=== PATIENT | male | born 1970 ===

== ENCOUNTER 2016-11-27 22:16 | Inpatient (IN) ==
[2016-11-27] MEDS: fentaNYL INJ 1,250 MCG in SODIUM CHLORIDE 0.9% 225 ML IV SCH (23:05)
[2016-11-27 23:11] LABS: ABG Base Excess 10.4 MMOL/L (-2.5-2.5); ABG HCO3 34.2 MMOL/L (20-26); ABG PCO2 62.4 MM HG (35-48); ABG PH 7.397 (7.35-7.45); ABG TCO2 32.9 MMOL/L (23-27)
[2016-11-27 23:11] LABS: Basophils % 0.3 % (0.0-0.8); Eosinophils # 0.1 10*3/uL (0.0-0.87); Eosinophils % 1.8 % (0.00-10.9); Hematocrit 48.5 VOL% (42.0-52.0); Immature Granulocytes % 0.3 %; Immature Granulocytes Absolute 0.02 #; Lymphocytes # 1.2 10*3/uL (1.4-4.0); Lymphocytes % 17.7 % (21.2-54.2); Mean Corpuscular HGB Conc 29.1 GM/DL (32-36); Mean Corpuscular Hemoglobin 27 PG (27-34); Mean Corpuscular Volume 92.9 FL (87-102); Mean Platelet Volume 10.5 FL (9.6-12.0); Monocytes # 0.5 10*3/uL (0.11-0.8); Monocytes % 6.8 % (1.7-12.7); NRBC # 0.03 10*3/uL; Neutrophils # 4.8 10*3/uL (1.4-7.4); Neutrophils % 73.1 % (38.7-73.9); Platelet Count 142 T/CUMM (130-400); Red Blood Count 5.22 MC/CUMM (3.8-5.5); Red Cell Distribution Width 16.8 % (9.3-17.3); White Blood Count 6.6 T/CUMM (4-12)
[2016-11-27] MEDS: MIDAZOLAM 100 MG in SODIUM CHLORIDE 0.9% 80 ML IV SCH (23:13)
[2016-11-27 23:22] LABS: Hemoglobin 14.3 GM/DL (14.0-18.0)
[2016-11-27 23:33] LABS: Alanine Aminotransferase 15 U/L (16-61); Albumin 2.8 G/DL (3.4-5.0); Alkaline Phosphatase 92 U/L (45-117); Aspartate Amino Transferase 24 U/L (0-37); Blood Urea Nitrogen 21 MG/DL (7-18); Calcium 8.1 MG/DL (8.5-10.1); Glucose 89 MG/DL (74-106); Potassium 4.7 MMOL/L (3.5-5.1); Sodium 136 MMOL/L (136-145); Total Protein 8.2 G/DL (6.4-8.3); Troponin I Only < 0.015 NG/ML (0.00-0.045)
--- NOTE | 2016-11-28 00:48 | Hospitalist History & Physical ---
Assessment and Plan (1) Hypercapnia Status: Acute Current Visit: No (2) Acute respiratory failure with hypercapnia Status: Resolved Current Visit: No (3) Respiratory failure requiring intubation Status: Resolved Current Visit: No (4) Morbid obesity Status: Chronic Current Visit: No (5) History of lobectomy of lung Status: Chronic Current Visit: No (6) Obesity hypoventilation syndrome Status: Chronic Current Visit: No (7) ORIANA (obstructive sleep apnea) Status: Acute Assessment and plan: Plan for this patient will be admitting him to our service. He will be kept on the ventilator in ICU. The vent settings seem to agree with this patient his pH is normalizing now and his PCO2 is going down. I can trim back on some O2 at this point. We will recheck an ABG in a few hours and consult pulmonary for their input on vent changes. We will start him on IV antibiotics in case there is a infectious etiology component. Will reevaluate patient in the morning and adjust plans as appropriate. Current Visit: No History of Present Illness Chief complaint: Respiratory failure History of present illness: Mr. Baldwin is a 46 year old male with past medical history significant for chronic respiratory failure with hypercapnia, morbid obesity, obesity hypoventilation syndrome and history of lung cancer for which he is followed by Dr. Covarrubias. Patient was in his normal state of health till today. Apparently patient was complaining about abdominal pain and went to [place]. They told him that he had a large gallbladder and needed to follow-up with the [facility]. Patient went home and was lying down. His reports that he woke up called out her name and was breathing funny. They called EMS and he was taken up to [facility]. Apparently when patient showed up at [facility] he had a O2 sat of 60%. He had a CO2 of 195 and he was intubated with a air and was subsequently transferred to our hospital for further evaluation. Per review of old records he had a similar presentation in 2016. There is some history of him using a CPAP machine that was not working properly according to his family. Home Medications Medication Instructions Recorded Confirmed Type Albuterol Inhaler [Proventil 2 puff INH Q4H PRN #1 inhaler 07/18/15 Rx Inhaler] Albuterol/Ipratropium Neb [Duoneb] 3 ml RESP TX TID #90 nebulization 07/18/15 Rx solution Budesonide Neb [Pulmicort Respules] 0.5 mg RESP TX RT DAILY #30 07/18/15 Rx nebulizer solution predniSONE TAB [PredniSONE] 20 mg PO DAILY #10 tablet 07/18/15 Rx Acetamin/Codeine 120-12 mg/5Ml 12.5 ml PO Q6H PRN #120 ml 06/26/16 Rx [Tylenol/Codeine Liquid] Azithromycin [Zithromax] 500 mg PO DAILY #5 tablet 06/26/16 Rx Allergies Allergy/AdvReac Type Severity Reaction Status Date / Time No Known Allergies Allergy Verified 11/27/16 22:35 Medical,Surgical,& Family Hx - Medical History Cardio: No history of: Hypertension Respiratory: History of: Obstructive Sleep Apnea (diagnostic AHI of 8.2 but with severe hypoxia controlled with 19cm CPAP), Lung Cancer (LLL removed), Respiratory Problems (?Resp Failure October 2014?) - Surgical History Thoracic Surgeries: Surgical HX of;: Lobectomy (LLL) - Family History Family History: Reports;: Family Diabetes - Social History Smoking Status: Unknown if ever smoked Frequency of Alcohol Use: Unknown Type of Drug Use: Unknown ROS unobtainable: due to endotracheal tube Exam - Constitutional Vitals: Period Temp Pulse Resp BP Sys/Pastor Pulse Ox Last 24 Hr 96.7 F-96.7 F 60-62 22-22 101-105/54-62 99-100 General appearance: morbidly obese - Head Head exam: Present: normal inspection - ENT ENT exam: Present: other (ET tube in place) - Neck Neck exam: Present: normal inspection - Respiratory Respiratory exam: Present: other (Coarse breath sounds bilaterally) - Cardiovascular Cardiovascular exam: Present: regular rate and rhythm - GI/Abdominal GI/Abdominal exam: Present: hypoactive bowel sounds - Extremities Exam Extremities exam: Present: normal inspection - Back Exam Back exam: Present: normal inspection Results - Labs CBC & BMP: 11/27/16 22:48 11/27/16 22:48
[2016-11-28] MEDS ORDERED: ONDANSETRON 4 MG/2 ML VIAL IV PRN (00:56)
[2016-11-28] MEDS ORDERED: ACETAMINOPHEN 325 MG TABLET PO PRN (00:56)
[2016-11-28] MEDS ORDERED: ALBUTEROL 2.5 MG/3 ML NEB RESP TX PRN (00:56)
--- NOTE | 2016-11-28 01:01 | Emergency Department Note ---
I, Sandie Lawrence, am scribing for, and in the presence of, Anjel Cheng MD 22: 29. IProsper Kevin Lee, MD, personally performed the services described in this documentation, ascribed by Sandie Lawrence in my presence, and it is both accurate and complete . 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 Pt originally came to [facility] at 60 O2 sat on room air but brought up to 94, with CO2 was 195 then intubated. Pt is missing left lower lobe due to CA, in which pt was under supervision of Dr. Covarrubias. PMHx of COPD, DM. Pt is on fentanyl and versat. Onset (ago): hour(s) Consistency: constant Severity: severe Severity scale (1-10): 10 Quality: fullness Allergies/Adverse Reactions: Allergies Allergy/AdvReac Type Severity Reaction Status Date / Time No Known Allergies Allergy Verified 11/27/16 22:35 Home Medications: Home Medications Medication Instructions Recorded Confirmed Type Albuterol Inhaler [Proventil 2 puff INH Q4H PRN #1 inhaler 07/18/15 11/28/16 Rx Inhaler] Albuterol/Ipratropium Neb [Duoneb] 3 ml RESP TX TID #90 nebulization 07/18/15 Rx solution Ciprofloxacin HCl [Ciprofloxacin 1 tablet PO BID 11/28/16 11/28/16 History Tab] Methyl Salicylate/Menth/Camph 1 applic TRANSDERM DIRECTED 11/28/16 11/28/16 History [Bengay Ultra Strength Cream] metroNIDAZOLE TAB [Flagyl Cap/Tab] 1 tablet PO BID 11/28/16 11/28/16 History Review of System - Review of System ROS unobtainable: due to mental status (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 Absent: normal lung sounds bilaterally (coarse bilaterally) - Cardiovascular Cardiovascular exam: Present: regular rate, normal rhythm, normal heart sounds - Extremities Exam Extremities exam: Present: pedal edema (chronic edema) - Neurological Exam Neurological exam: Absent: alert, oriented X3, CN II-XII intact (GSC of 3T) - Skin Skin exam: Present: warm, dry Results - Labs CBC & BMP: 11/27/16 22:48 11/27/16 22:48 Lab Results: I have reviewed the patients labs Labs: Laboratory Tests 11/27/16 11/27/16 22:48 23:05 WBC 6.6 RBC 5.22 Hgb 14.3 Hct 48.5 MCHC 29.1 L Plt Count 142 Lymph % (Auto) 17.7 L Lymph # (Auto) 1.2 L ABG pH 7.397 ABG pCO2 62.4 H ABG pO2 441.0 H ABG HCO3 34.2 H ABG Total CO2 32.9 H ABG O2 Saturation 100.0 ABG Base Excess 10.4 H Laboratory Tests 11/27/16 22:48 Sodium 136 Potassium 4.7 Chloride 96 L Carbon Dioxide 39 H BUN 21 H GFR Calculation 122 Glucose 89 Calcium 8.1 L Total Bilirubin 1.60 H AST 24 ALT 15 L Troponin I < 0.015 Albumin 2.8 L Globulin 5.4 H Albumin/Globulin Ratio 0.5 L Laboratory Tests 11/27/16 22:48 B-Natriuretic Peptide 121 H - Diagnostic Findings Procedure: Chest x-ray: image reviewed by me (tube in good position) Disposition Clinical Impression: Respiratory failure, Obesity Case discussed with: patient's family Disposition: Still a Patient Condition: Critical
[2016-11-28] MEDS: SODIUM CHLORIDE 0.9% 1,000 ML IV SCH ×3 (02:08→19:04)
[2016-11-28] MEDS: cefTRIAXone 1,000 MG in SODIUM CHLORIDE 0.9% 100 ML IV SCH (02:10)
[2016-11-28] MEDS: ALBUTEROL/IPRATROPIUM 3 ML NEB RESP TX SCH ×4 (02:13→20:10)
[2016-11-28] MEDS: methylPREDNISolone SOD SUC 40 MG/1 ML VIAL IV SCH ×2 (02:33→13:04)
[2016-11-28] MEDS: ENOXAPARIN 40 MG/0.4 ML SYRINGE SUBCUT SCH (02:33)
--- NOTE | 2016-11-28 07:38 | XRay Report ---
XR chest 1V portable Indication: Intubated Comparison: Chest x-ray dated June 26, 2016 Technique: Single frontal view of the chest. Findings: Endotracheal tube tip proximally 2 cm above the sydnie. Continued cardiomegaly. There is a nonspecific reticular pattern throughout the bilateral lungs suspicious for interstitial pulmonary edema, interstitial pneumonia, or other interstitial lung disease. There is significant opacification of the left mid and lower hemithorax which may be secondary to elevation of the left hemidiaphragm, atelectasis/consolidation, and/or pleural fluid. Visualized osseous and surrounding soft tissue structures appear grossly unchanged. IMPRESSION: As above. PROCEDURE INTERPRETED AT [facility] DEPARTMENT OF RADIOLOGY Final Report Signed by: Dr Clark Posada
[2016-11-28 07:40] LABS: Basophils % 0.1 % (0.0-0.8); Eosinophils % 0.6 % (0.00-10.9); Hematocrit 48.2 VOL% (42.0-52.0); Immature Granulocytes % 0.3 %; Immature Granulocytes Absolute 0.02 #; Lymphocytes # 0.9 10*3/uL (1.4-4.0); Lymphocytes % 12.4 % (21.2-54.2); Mean Corpuscular HGB Conc 29.7 GM/DL (32-36); Mean Corpuscular Hemoglobin 27 PG (27-34); Mean Corpuscular Volume 91.5 FL (87-102); Mean Platelet Volume 10.3 FL (9.6-12.0); Monocytes # 0.3 10*3/uL (0.11-0.8); Monocytes % 4.1 % (1.7-12.7); Neutrophils # 5.7 10*3/uL (1.4-7.4); Neutrophils % 82.5 % (38.7-73.9); Platelet Count 146 T/CUMM (130-400); Red Blood Count 5.27 MC/CUMM (3.8-5.5); Red Cell Distribution Width 16.9 % (9.3-17.3); White Blood Count 6.9 T/CUMM (4-12)
[2016-11-28 07:41] LABS: Allen Test Positive; Pt O2 Delivery Device Ventilator
[2016-11-28 07:42] LABS: ABG Base Excess 9.3 MMOL/L (-2.5-2.5); ABG HCO3 37.1 MMOL/L (20-26); ABG Oxygen Saturation 96.5 % (95-100); ABG PCO2 63.5 MM HG (35-48); ABG PH 7.384 (7.35-7.45); ABG PO2 89.2 MM HG (80-95)
[2016-11-28 07:45] LABS: Hemoglobin 14.3 GM/DL (14.0-18.0)
[2016-11-28 07:47] LABS: Albumin 2.8 G/DL (3.4-5.0); Bilirubin,Total 1.7 MG/DL (0.2-1.0); Calcium 8.1 MG/DL (8.5-10.1); Osmolality,Calculated 275.8 MOS/KG (273-304); Potassium 5.1 MMOL/L (3.5-5.1); Total Protein 7.6 G/DL (6.4-8.3)
--- NOTE | 2016-11-28 08:00 | Ultrasound Report ---
US gallbladder Indication: Generalized abdominal pain. Comparison: None. Technique: Multiple longitudinal and transverse real-time sonographic images of the right upper quadrant of the abdomen are obtained. Findings: The liver measures 19 cm and demonstrates no focal abnormality on submitted images. There is gallbladder wall thickening measuring up to 5.7 mm. No significant gallbladder distention or evidence of cholelithiasis.The common duct measures 0.5 cm in diameter and there is no evidence of significant intrahepatic ductal dilation. Right kidney measures 11.5 cm. Pancreas obscured by bowel gas. IMPRESSION: There is gallbladder wall thickening measuring up to 5.7 mm. No significant gallbladder distention or evidence of cholelithiasis. Gallbladder wall thickening is a nonspecific finding and can be seen with etiology ranging from volume overload state to cholecystitis. Consider nuclear medicine hepatobiliary imaging study for further evaluation. Hepatomegaly. PROCEDURE INTERPRETED AT [facility] DEPARTMENT OF RADIOLOGY Final Report Signed by: Dr Clark Posada
[2016-11-28] MEDS: MIDAZOLAM 100 MG in SODIUM CHLORIDE 0.9% 80 ML IV SCH ×2 (09:01→21:24)
[2016-11-28] MEDS: PANTOPRAZOLE 40 MG VIAL IV SCH (09:13)
[2016-11-28] MEDS: fentaNYL INJ 1,250 MCG in SODIUM CHLORIDE 0.9% 225 ML IV SCH ×2 (09:16→20:30)
--- NOTE | 2016-11-28 11:10 | Anesthesia Procedures ---
Anesthesia Procedures - Intubation Time out performed intubation: Yes Sedative: none Assist Device Used: Bougie ET Tube Size: 8 ET Tube Uncuffed: No Tube Secured Depth (cm): 22 Tube Secured Location: teeth Tube Placement Confirmation: equal breath sounds bilaterally, no breath sounds over epigastrium, confirmation by capnometry Patient tolerated procedure intubation: well Intubation Complications: none Additional Commets: tube changeed from 7.[address] Camilo request
--- NOTE | 2016-11-28 12:06 | Pulmonology Consult Note ---
History of Present Illness Chief complaint: Vent management. Acute respiratory failure. Obesity hypoventilation syndr History of present illness: Nick Hernandez, [facility], acting as scribe for Dr. Ryan Camilo Mr. Baldwin is a 46-year-old male who was in his usual state of health until last night when he had acute onset of abdominal pain. He went to [facility]. On evaluation there, they told him he had a large gallbladder and he need to follow-up with the [facility]. He went home to lay down. His reportedly said that he woke up, called out her name , and began breathing "funny". She called an ambulance and he was taken to [facility]. Upon arrival he was noted to have an oxygen saturation of 60% with a PCO2 of 195. He was intubated and subsequently transferred to [facility] for further evaluation and care. It is noted that on review of old records he had a similar presentation in 2016. Nonetheless, he was subsequently admitted to the hospitalist service. We have been asked see the patient in pulmonary consultation for evaluation and treatment. The request for consultation was made by Dr. Hinton. The patient was seen in cardiac care unit. No family was available. He is sedated and on mechanical ventilation. Therefore, his review of systems and history is taken from his nurse, old records, and electronic medical record. There was no reported increased shortness of breath or dyspnea on exertion. No cardiac angina or palpitations. No reported dysphasia or reflux. He had acute onset of abdominal pain as noted above. No bleeding from any site. No TIA symptoms or syncope. No change in bowel or bladder habits. All other systems are reviewed and were negative. Allergies: None Home medications: See list. Hospital medications: See list. 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 Camilo. He was placed on chemotherapy that included bleomycin as well as tulalip, Cytoxan, and Adriamycin. This is been followed by Dr. Covarrubias. At the time of diagnosis this tumor was reportedly huge and was described as being approximately the size of a soccer ball when it was resected by Dr. Real Lozano. It has never recurred. However, it has caused his left hemidiaphragm to be permanently elevated. At that time, Dr. Camilo had noted that the patient should not be placed on more than 30% FiO2 secondary to CO2 retention. Past history is also notable for obstructive sleep apnea, asthma, past history of hypertension, and chronic sinus infections. Surgical history: Left thoracotomy [place] [address] Real Lozano. Family history: positive for diabetes in his mother and lung cancer in his father Social history: The patient has an 8th grade education. He is disabled. He is . He has no children. He uses smokeless tobacco. I do not believe he drinks alcohol. Chest x-ray. Done 11/28/2016. My interpretation. Progressive cardiomegaly with progressive CHF/bilateral pneumonia with larger pleural effusions. Chronic elevation of left hemidiaphragm with prior left thoracotomy. Gallbladder ultrasound done 11/28/2016 showed gallbladder wall thickening measuring up to 5.7 mm. No significant gallbladder distention or evidence of cholelithiasis. Gallbladder wall thickening was a nonspecific finding that could be seen with etiology ranging from volume overload state cholecystitis. There is also hepatomegaly. Laboratory: White count is 6900 with 82.5% segs, 12.4% lymphs, 4.1% monos; H&H 14.3/48.2 with low to low normal indices and top normal red blood cell distribution with; platelet count 146,000; creatinine 0.90, BUN 20, sodium 137, potassium 5.1; calcium is low at 8.1 reflected in the low albumin of 2.6, total protein 76; BNP 121; troponin less than 0.015; total bilirubin 1.70; liver function tests within normal limits. ABGs today on mechanical ventilation with an FiO2 of 70% showed a pH of 7.384, PCO2 63.5, PO2 89.2, bicarb 37.1, and oxygen saturation 96.5%. Home Medications Medication Instructions Recorded Confirmed Type Albuterol Inhaler [Proventil 2 puff INH Q4H PRN #1 inhaler 07/18/15 11/28/16 Rx Inhaler] Albuterol/Ipratropium Neb [Duoneb] 3 ml RESP TX TID #90 nebulization 07/18/15 Rx solution Ciprofloxacin HCl [Ciprofloxacin 1 tablet PO BID 11/28/16 11/28/16 History Tab] Methyl Salicylate/Menth/Camph 1 applic TRANSDERM DIRECTED 11/28/16 11/28/16 History [Bengay Ultra Strength Cream] metroNIDAZOLE TAB [Flagyl Cap/Tab] 1 tablet PO BID 11/28/16 11/28/16 History Allergies Allergy/AdvReac Type Severity Reaction Status Date / Time No Known Allergies Allergy Verified 11/27/16 22:35 Exam (Pulmonay) H&P - Constitutional Vitals: Period Temp Pulse Resp BP Sys/Pastor Pulse Ox Last 24 Hr 96.7 F-97.5 F 53-68 22-36 96-116/51-64 89-100 Exam: Psych: Unable to be obtained secondary to sedation and mechanical ventilation HEENT: [Pupils, irises, sclera, conjunctiva, and eyelids are normal. The face is symmetrical without rash or masses. ET tube in place Neck: Symmetrical. Thyroid was not palpated. Lymphatics: No submandibular, cervical, or supraclavicular adenopathy Chest: Symmetrical with loose large airway congestion CV: Regular with a short grade 1/6 systolic ejection murmur at the left sternal border that does not radiate Arterial: Carotids with a good upstroke. There is no bruit. Upper extremity pulses are palpable. Lower extremity pulses are non-palpable, but I see no evidence of ischemia. Venous: Exam of the neck, upper, and lower extremities is normal Abd: Obese, but no appreciable organomegaly, masses, tenderness, or bruit; Bowel sounds are hypoactive 4; The aorta was not palpated /Rectal: Deferred Extremities: No clubbing, cyanosis, significant edema, or obvious DVT Skin: No cancerous or infectious lesions of the exposed, examined skin; the perineal area was not examined M/S: Age appropriate loss of the normal curvature of the cervical, thoracic, and lumbar spine Neurological: Unable to be determined fully secondary to sedation and mechanical ventilation The remainder of the exam was noncontributory. 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 Given the fact that he has had a thoracotomy and chronic CO2 retention, he will be very difficult to wean down with this size tube. We will ask anesthesia to electively change this out to a larger tube. #4: Once anesthesia is able to give us a larger ET tube, we will proceed with fiberoptic bronchoscopy. #5: Daily chest x-ray and ABGs while intubated. #6: Decrease FiO2 to 40% #7: See orders We appreciate this consult and will follow along with you. Medical,Surgical,& Family Hx - Medical History Cardio: No history of: Hypertension Respiratory: History of: Obstructive Sleep Apnea (diagnostic AHI of 8.2 but with severe hypoxia controlled with 19cm CPAP), Lung Cancer (LLL removed), Respiratory Problems (?Resp Failure October 2014?) Reproductive: Reports: Reproductive Problems (Klinefelter's syndrome) Other: History of: Cancer (malignant teratoma 1983), Miscellaneous Medical Problems (obesity) - Surgical History Thoracic Surgeries: Surgical HX of;: Lobectomy (LLL) - Family History Family History: Reports;: Family Diabetes - Social History Smoking Status: Unknown if ever smoked Frequency of Alcohol Use: Unknown Type of Drug Use: Unknown Results - Labs CBC & BMP: 11/28/16 07:11 11/28/16 07:11
--- NOTE | 2016-11-28 12:06 | XRay Report ---
Portable chest Date: 11/28/2016 Clinical history: Endotracheal tube and nasogastric tube placement Comparison: 11/27/2016 Technique: Portable AP sitting chest Findings: Progressive cardiomegaly with more prominent pulmonary vasculature. Progressive diffuse parenchymal findings with larger pleural effusions. The endotracheal tube remains in satisfactory position. Nasogastric tube in the stomach. Impression: Progressive cardiomegaly with progressive CHF/bilateral pneumonia with larger pleural effusions. Persistent relative elevation of the left hemidiaphragm with prior left thoracotomy. Supportive devices in satisfactory position. PROCEDURE INTERPRETED AT [facility] DEPARTMENT OF RADIOLOGY Final Report Signed by: Dr. Charmaine Mancia
--- NOTE | 2016-11-28 15:36 | Event Note ---
In hospital diagnostic and therapeutic fiberoptic. Bilateral bronchoalveolar lavages were sent for Gram stain, bacterial culture, fungal stains and culture, AFB stains and culture. This is a 46-year-old male who had a malignant mediastinal teratoma removed in 1983. Following surgery he has had chronic elevation of his left hemidiaphragm. He has a long history of CO2 retention. He was admitted to the hospital and intubated with respiratory failure for oxygen and carbon dioxide. His chest x-ray shows elevation of left hemidiaphragm. There is atelectasis in the left lung and a minor amount of atelectasis in the right lower lung. The patient is on mechanical ventilation. His cough is ineffective and it appeared that he had retained secretions. For these reasons he was evaluated with fiberoptic bronchoscopy. The endotracheal tube is in good position. The distal trachea was slightly erythematous but was otherwise normal. The sydnie was sharp. The left mainstem bronchus was full of thick tenacious secretions. These extended into and partially the left upper lung and the left lower lung bronchus. All of the left lower lung sub-segments were occluded with thick tenacious secretions. These areas were irrigated and lavaged until clear. The underlying bronchi were erythematous and edematous. I did not see any endobronchial lesions to suggest a cancer. The collection apparatus showed a tremendous number of small yellow bronchial plugs and bronchial casts. The right mainstem bronchus was full of thick tenacious secretions. These extended into the right upper right middle lung but did not occlude these lobes. The right lower lung segments were partially or completely occluded with thick tenacious secretions. These were removed with level lavaged and bronchoalveolar suction. Again multiple bronchial plugs and casts were seen. The right lower lung there was underlying erosive erythematous bronchitis. I saw nothing to suggest a cancer Patient tolerated procedure well there were no complications. The specimens were sent for the studies named above. Impression. 1. Acute respiratory failure for oxygen and carbon dioxide. Note past history of chronic hypercarbia 2. Intubation mechanical ventilation. 3. Chronically elevated left hemidiaphragm 4. Ineffective cough 5. Retained secretions 6. Bibasilar erosive and edematous partially stenotic bronchitis 7. History of malignant mediastinal teratoma rese[place] [address] Mario Noble.
[2016-11-29] MEDS: INSULIN REGULAR 100 UNIT/ML SUBCUT SCH ×4 (00:27→18:21)
[2016-11-29] MEDS: ALBUTEROL/IPRATROPIUM 3 ML NEB RESP TX SCH ×4 (02:12→19:08)
[2016-11-29] MEDS: SODIUM CHLORIDE 0.9% 1,000 ML IV SCH ×3 (02:35→17:01)
[2016-11-29] MEDS: ENOXAPARIN 40 MG/0.4 ML SYRINGE SUBCUT SCH (02:35)
[2016-11-29] MEDS: methylPREDNISolone SOD SUC 40 MG/1 ML VIAL IV SCH ×2 (02:36→14:13)
[2016-11-29] MEDS: cefTRIAXone 1,000 MG in SODIUM CHLORIDE 0.9% 100 ML IV SCH (02:38)
[2016-11-29 03:08] LABS: ABG Base Excess 7.7 MMOL/L (-2.5-2.5); ABG HCO3 33.9 MMOL/L (20-26); ABG Oxygen Saturation 94.1 % (95-100); ABG PCO2 53.5 MM HG (35-48); ABG PO2 68.9 MM HG (80-95); ABG TCO2 35.6 MMOL/L (23-27); Allen Test Positive; Pt O2 Delivery Device Ventilator
[2016-11-29 06:30] LABS: Calcium 8.3 MG/DL (8.5-10.1); Magnesium 2.5 MG/DL (1.8-2.4); Osmolality,Calculated 282.8 MOS/KG (273-304); Prealbumin 10.9 MG/DL (20-40)
--- NOTE | 2016-11-29 07:21 | Pulmonology Progress Note ---
Pulmonary - PN: Subj Interval history: Patient s/p respiratory failure, hx of left lobectomy. Doing well this morning on minimal vent settings. No issues overnight per nursing. HD stable Exam (Progress Note) - Constitutional Vitals: Period Temp Pulse Resp BP Sys/Pastor Pulse Ox Last 24 Hr 96.9 F-97.6 F 53-74 11-36 105-144/43-69 69-98 General appearance: no acute distress Exam: intubated and sedated - Head Head exam: Present: normal inspection - ENT ENT exam: Present: normal exam, other (ET tube in place) - Respiratory Respiratory exam: Present: clear to auscultation bilaterally - Cardiovascular Cardiovascular exam: Present: regular rate and rhythm - GI/Abdominal GI/Abdominal exam: Present: normal bowel sounds Results - Labs CBC & BMP: 11/28/16 07:11 11/29/16 04:58 Lab Results: I have reviewed the past 24 hour labs - Diagnostic Findings Procedure: Chest x-ray: image reviewed by me (expiratory film) Assessment and Plan (1) Acute respiratory failure with hypercapnia Status: Resolved Assessment and plan: Patient with respiratory failure, stable on minimal vent settings. Underwent bronch yesterday with removal of significant secretions. Clinically doing well now. Will do sedation holiday and SBT this morning and assess for extubation readiness Current Visit: No
[2016-11-29] MEDS: fentaNYL INJ 1,250 MCG in SODIUM CHLORIDE 0.9% 225 ML IV SCH ×2 (08:01→19:56)
[2016-11-29] MEDS: PANTOPRAZOLE 40 MG VIAL IV SCH (09:15)
[2016-11-29] MEDS: MIDAZOLAM 100 MG in SODIUM CHLORIDE 0.9% 80 ML IV SCH (09:21)
--- NOTE | 2016-11-29 09:45 | XRay Report ---
XR chest 1V portable Indication: "Ventilator" Chest one view: Since yesterday, endotracheal tube and NG tube are roughly stable in position. Cardiomegaly and significant hazy obscuration of the central lungs, mid lungs and lung bases persists unchanged. Obesity continues to obscure the lung bases somewhat as well. Impression: No appreciable change. PROCEDURE INTERPRETED AT [facility] DEPARTMENT OF RADIOLOGY Final Report Signed by: Matti Hill M.D.
--- NOTE | 2016-11-29 16:12 | Hospitalist Progress Note ---
Hospitalist: Subjective Interval history: 46-year-old male with respiratory respiratory failure, he is on mechanical ventilation but is comfortable Exam - Constitutional Vitals: Period Temp Pulse Resp BP Sys/Pastor Pulse Ox Last 24 Hr 96.9 F-97.6 F 55-118 11-33 105-175/48-93 89-99 Exam: General: No Acute Distress HEENT: Mild pink eyes bilaterally Neck: Supple, No JVD Chest: Clear to auscultation B/L CV: S1 + S2 audible without murmur, gallop or rub Abd: soft, NT, Non-distended, BS + Ext: No edema Skin: No purpura, bruising or rash Rheumatologic: No Joint deformities Neurologic: Nonfocal Results - Labs CBC & BMP: 11/28/16 07:11 11/29/16 04:58 - Impressions Assessment and Plan (1) Bacterial conjunctivitis Status: Acute Current Visit: No Getting bacitracin ophthalmic (2) Acute hypoxemic and hypercapnic respiratory failure Status: Resolved Current Visit: No He is on mechanical ventilation, pulmonary is following. 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
[2016-11-29] MEDS: BACITRACIN OPH OINT 3.5 GM TUBE BOTH EYES SCH (21:17)
[2016-11-30] MEDS: MIDAZOLAM 100 MG in SODIUM CHLORIDE 0.9% 80 ML IV SCH (00:06)
[2016-11-30] MEDS: ALBUTEROL/IPRATROPIUM 3 ML NEB RESP TX SCH ×4 (01:05→19:35)
[2016-11-30] MEDS: INSULIN REGULAR 100 UNIT/ML SUBCUT SCH ×4 (01:10→17:36)
[2016-11-30] MEDS: methylPREDNISolone SOD SUC 40 MG/1 ML VIAL IV SCH ×2 (01:37→13:01)
[2016-11-30] MEDS: ENOXAPARIN 40 MG/0.4 ML SYRINGE SUBCUT SCH (01:40)
[2016-11-30] MEDS: cefTRIAXone 1,000 MG in SODIUM CHLORIDE 0.9% 100 ML IV SCH (01:40)
[2016-11-30 03:23] LABS: ABG Base Excess 6.5 MMOL/L (-2.5-2.5); ABG HCO3 30.2 MMOL/L (20-26); ABG Oxygen Saturation 94.4 % (95-100); ABG PCO2 51.5 MM HG (35-48); ABG PH 7.412 (7.35-7.45); ABG PO2 69.9 MM HG (80-95); ABG TCO2 28.2 MMOL/L (23-27); Allen Test Positive; Pt O2 Delivery Device Ventilator
[2016-11-30] MEDS: SODIUM CHLORIDE 0.9% 1,000 ML IV SCH ×3 (03:57→18:36)
--- NOTE | 2016-11-30 07:53 | Pulmonology Progress Note ---
Pulmonary - PN: Subj Interval history: Patient without any acute events overnight. No issues per nursing, remais stable on minimal vent settings Exam (Progress Note) - Constitutional Vitals: Period Temp Pulse Resp BP Sys/Pastor Pulse Ox Last 24 Hr 96.9 F-97.8 F 54-118 14-33 119-175/60-93 92-99 General appearance: no acute distress, over weight - Head Head exam: Present: normal inspection - Respiratory Respiratory exam: Present: clear to auscultation bilaterally - Cardiovascular Cardiovascular exam: Present: regular rate and rhythm - GI/Abdominal GI/Abdominal exam: Present: normal bowel sounds Results - Labs CBC & BMP: 11/28/16 07:11 11/29/16 04:58 Lab Results: I have reviewed the past 24 hour labs Assessment and Plan (1) Respiratory failure requiring intubation Status: Resolved Assessment and plan: Attempted SBT this morning. Patient appears awake, nods head that he is ready for extubation, however when placed on spontaneous mode he does not breath. Versed has only been off a short while, will leave off and see if he can do better later this mornig. If able to pass SBT, will extubate today Current Visit: No
[2016-11-30] MEDS: PANTOPRAZOLE 40 MG VIAL IV SCH (08:45)
[2016-11-30] MEDS: BACITRACIN OPH OINT 3.5 GM TUBE BOTH EYES SCH ×3 (08:46→20:01)
[2016-11-30] MEDS: fentaNYL INJ 1,250 MCG in SODIUM CHLORIDE 0.9% 225 ML IV SCH ×2 (08:48→19:57)
--- NOTE | 2016-11-30 09:08 | XRay Report ---
XR chest 1V portable Indication: Intubated. Chest one view: Comparison yesterday shows stable endotracheal tube and NG tube. Patient is more rotated to the right on the current examination but now the right lung base is completely obscured. Continued obscuration of the left lung base noted with persistent cardiomegaly present. Impression: Worsening atelectasis or pneumonia of the right lung base. PROCEDURE INTERPRETED AT [facility] DEPARTMENT OF RADIOLOGY Final Report Signed by: Matti Hill M.D.
[2016-11-30] MEDS: PROPOFOL 1,000 MG/100 ML BOTTLE IV SCH ×2 (14:52→22:54)
--- NOTE | 2016-11-30 15:50 | Hospitalist Progress Note ---
Hospitalist: Subjective Interval history: 46-year-old male with respiratory respiratory failure, he is on mechanical ventilation, getting wean trials. Exam - Constitutional Vitals: Period Temp Pulse Resp BP Sys/Pastor Pulse Ox Last 24 Hr 96.9 F-97.8 F 54-108 14-42 119-165/62-98 88-97 Exam: General: No Acute Distress HEENT: Mild pink eyes bilaterally Neck: Supple, No JVD Chest: Clear to auscultation B/L CV: S1 + S2 audible without murmur, gallop or rub Abd: soft, NT, Non-distended, BS + Ext: No edema Skin: No purpura, bruising or rash Rheumatologic: No Joint deformities Neurologic: Nonfocal Results - Labs CBC & BMP: 11/28/16 07:11 11/29/16 04:58 - Impressions Assessment and Plan: (1) Bacterial conjunctivitis Status: Acute Current Visit: No On bacitracin ophthalmic ointment (2) Acute hypoxemic and hypercapneic respiratory failure Status: Resolved Current Visit: No He is on mechanical ventilation, pulmonary is following. He is status post fiberoptic bronchoscopy with removal of secretions 11/28. 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
[2016-12-01] MEDS: INSULIN REGULAR 100 UNIT/ML SUBCUT SCH ×5 (00:14→23:30)
[2016-12-01] MEDS: ALBUTEROL/IPRATROPIUM 3 ML NEB RESP TX SCH ×4 (00:59→20:13)
[2016-12-01] MEDS: ENOXAPARIN 40 MG/0.4 ML SYRINGE SUBCUT SCH (01:24)
[2016-12-01] MEDS: methylPREDNISolone SOD SUC 40 MG/1 ML VIAL IV SCH ×2 (01:24→14:41)
[2016-12-01] MEDS: cefTRIAXone 1,000 MG in SODIUM CHLORIDE 0.9% 100 ML IV SCH (01:27)
[2016-12-01] MEDS: PROPOFOL 1,000 MG/100 ML BOTTLE IV SCH ×4 (02:48→18:33)
[2016-12-01 03:15] LABS: ABG HCO3 29.8 MMOL/L (20-26); ABG Oxygen Saturation 96.6 % (95-100); ABG PH 7.391 (7.35-7.45); ABG PO2 85.3 MM HG (80-95); ABG TCO2 28.3 MMOL/L (23-27); Allen Test Positive; Pt O2 Delivery Device Ventilator
[2016-12-01] MEDS: SODIUM CHLORIDE 0.9% 1,000 ML IV SCH ×2 (06:34→20:40)
--- NOTE | 2016-12-01 07:53 | XRay Report ---
Single view the chest. Indication: Ventilated patient. Comparison: November 30, 2016. The heart borders are not well-defined. The lung volumes are small. The heart is suspected to be enlarged. An endotracheal tube and nasogastric tube appear to be in satisfactory position. The pulmonary vasculature is prominent. There are bilateral basilar infiltrates and pleural effusions. Impression: No significant interval change is seen. PROCEDURE INTERPRETED AT [facility] DEPARTMENT OF RADIOLOGY Final Report Signed by: Dr. Leslie Latham
[2016-12-01 08:59] LABS: Hematocrit 48.8 VOL% (42.0-52.0); Hemoglobin 14.3 GM/DL (14.0-18.0); Immature Granulocytes % 0.3 %; Immature Granulocytes Absolute 0.02 #; Lymphocytes # 0.6 10*3/uL (1.4-4.0); Lymphocytes % 8.7 % (21.2-54.2); Mean Corpuscular HGB Conc 29.3 GM/DL (32-36); Mean Corpuscular Hemoglobin 27 PG (27-34); Mean Corpuscular Volume 91.4 FL (87-102); Mean Platelet Volume 10.5 FL (9.6-12.0); Monocytes # 0.4 10*3/uL (0.11-0.8); Monocytes % 6.5 % (1.7-12.7); Neutrophils # 5.5 10*3/uL (1.4-7.4); Neutrophils % 84.5 % (38.7-73.9); Platelet Count 123 T/CUMM (130-400); Red Blood Count 5.34 MC/CUMM (3.8-5.5); Red Cell Distribution Width 17.1 % (9.3-17.3); White Blood Count 6.5 T/CUMM (4-12)
[2016-12-01] MEDS: BACITRACIN OPH OINT 3.5 GM TUBE BOTH EYES SCH ×3 (08:59→21:36)
[2016-12-01] MEDS: PANTOPRAZOLE 40 MG VIAL IV SCH (08:59)
[2016-12-01 09:25] LABS: Calcium 8.4 MG/DL (8.5-10.1); Magnesium 2.6 MG/DL (1.8-2.4); Osmolality,Calculated 285.7 MOS/KG (273-304); Potassium 4.8 MMOL/L (3.5-5.1)
--- NOTE | 2016-12-01 10:55 | Pulmonology Progress Note ---
Pulmonary - PN: Subj Interval history: This is a 46-year-old male whom I saw in pulmonary consultation 11/28/2016. Has a long history of respiratory failure for oxygen hypoxemia. He has a nonfunctioning left hemidiaphragm. He was admitted with respiratory failure for oxygen and carbon dioxide and required intubation mechanical ventilation. My impressions were. 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 Patient's on mechanical ventilation. He is on a weaning protocol. On 11/30/2016 he was able to do 4-1/2 hours of CPAP. His chest x-ray shows bilateral infiltrates. Natruretic peptide is increased from 121-213. Electrolytes are normal. Creatinine is 0.90 with the BUN of 32. ABGs on mechanical ventilation FiO2 40% shows a pH of 7.39, PCO2 of 50.0, PO2 of 85.3 and a bicarb of 29.8. This patient will require hypercarbia in order to extubate. He now has a #8 tube. This patient has been started on Diamox 250 mg IV push every 12 hours. Bronchoscopy specimens have no growth. Patient has become afebrile. Physical exam. General. No distress. Can cooperate. Psychiatric. Oriented 3 I think Vital signs. See below Face. Symmetrical. No swelling of the lips or tongue. Neck. No meningismus no masses. Lymphatics. No submandibular cervical supraclavicular or epitrochlear adenopathy. Chest coarse large airway congestion Heart. No definite gallop Abdomen. Scattered bowel sounds Extremities. Mild chronic venous stasis in the lower extremities. Neurologic. Cranial nerves are intact. Patient can move all 4 extremities. It is known that he has a nonfunctioning left hemidiaphragm The remainder of the physical exam is noncontributory. Plan: 11/28/2016 #1: Ventilator weaning protocol #2: Initiate early progressive mobility #3: Patient has a size 7 ET tube. Given the fact that he has had a thoracotomy and chronic CO2 retention, he will be very difficult to wean down with this size tube. We will ask anesthesia to electively change this out to a larger tube. #4: Once anesthesia is able to give us a larger ET tube, we will proceed with fiberoptic bronchoscopy. #5: Daily chest x-ray and ABGs while intubated. #6: Decrease FiO2 to 40% #7: See orders 12/01/2016. 1. See today's note above 2. Continue weaning protocol 3. Chest x-ray has deteriorated, BNP is elevated. Will get echocardiogram. Exam (Progress Note) - Constitutional Vitals: Period Temp Pulse Resp BP Sys/Pastor Pulse Ox Last 24 Hr 96.9 F-97.6 F 57-108 18-42 111-165/61-98 88-97 Results - Labs CBC & BMP: 12/01/16 08:42 12/01/16 08:42
--- NOTE | 2016-12-01 12:39 | Hospitalist Progress Note ---
Hospitalist: Subjective Interval history: 46-year-old male with respiratory failure, he is on mechanical ventilation, getting wean trials. He has history of previous lobectomy and also has history of malignant mediastinal teratoma that required left thoracotomy 1983. He has been started on weaning trial. He is a chronic CO2 retainer. He had a CPAP machine at home but per family it was not functioning properly. Exam - Constitutional Vitals: Period Temp Pulse Resp BP Sys/Pastor Pulse Ox Last 24 Hr 96.9 F-97.6 F 57-108 18-42 111-165/61-98 88-97 Exam: General: No Acute Distress HEENT: Mild pink eyes bilaterally Neck: Supple, No JVD Chest: Clear to auscultation B/L CV: S1 + S2 audible without murmur, gallop or rub Abd: soft, NT, Non-distended, BS + Ext: No edema Skin: No purpura, bruising or rash Rheumatologic: No Joint deformities Neurologic: Nonfocal Results - Labs CBC & BMP: 12/01/16 08:42 12/01/16 08:42 - Impressions 1) Bacterial conjunctivitis Status: Acute Current Visit: No On bacitracin ophthalmic ointment (2) Acute hypoxemic and hypercapneic respiratory failure Status: Resolved Current Visit: No He is on mechanical ventilation, pulmonary is following. He is status post fiberoptic bronchoscopy with removal of secretions 11/28. 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
--- NOTE | 2016-12-01 14:24 | ECHO Report ---
Huey Baldwin Exam Date: 12/01/2016 12:23 Referring Physician: Technologist: Savanah Flynn RDCS Age: 46 Ht (in): 69 Wt (lb): 370 Gender: M Exam [facility]: [facility] Echo Indications: Acute respiratory failure with hypoxia, Acute respiratory failure with hypercapnia, Morbid (severe) obesity with alveolar hypoventilation, Bacterial conjuctivitis, ORIANA, Essential (primary) hypertension, hx Lobectomy of lung BP: 141 / 72 HR: 76 Rhythm: Sinus Technical Quality: Limited and technically difficult IMPRESSIONS Left ventricular ejection fraction is estimated at 60 %. No regional wall motion abnormality. Normal diastolic parameters. Tricuspid regurgitation velocities suggest a RVSP of 47 mmHg. Three chamber cardiac enlargement Technically limited study MEASUREMENTS (Male / Female) Normal Values 2D ECHO LV Diastolic Diameter PLAX 4.8 cm 4.2 - 5.9 / 3.9 - 5.3 cm LV Systolic Diameter PLAX 2.6 cm LV Fractional Shortening PLAX 46.1 % IVS Diastolic Thickness 0.9 cm 0.6 - 1.0 / 0.6 - 0.9 cm LVPW Diastolic Thickness 0.9 cm 0.6 - 1.0 / 0.6 - 0.9 cm RV Internal Dim ED PLAX 3.0 cm Aortic Root Diameter 2.9 cm LA Systolic Diameter LX 4.4 cm 3.0 - 4.0 / 2.7 - 3.8 cm DOPPLER TR Peak Velocity 305.0 cm/s TR Peak Gradient 37.2 mmHg FINDINGS Left Ventricle Normal left ventricular cavity size. Normal left ventricular wall thickness. Left ventricular ejection fraction is estimated at 60 %. No regional wall motion abnormality. Normal diastolic parameters Right Ventricle The right ventricle is enlarged and has normal function. Right Atrium Moderately increased right atrial size. Left Atrium Moderately increased left atrial size. Mitral Valve Morphologically normal mitral valve. Trace mitral valve regurgitation. Aortic Valve Mild aortic valve sclerosis without stenosis or regurgitation. Tricuspid Valve Morphologically normal tricuspid valve. Mild tricuspid valve regurgitation. Tricuspid regurgitation velocities suggest a RVSP of 47 mmHg. Pulmonic Valve Pulmonic valve not well visualized. No pulmonary valve regurgitation. Pericardium Normal pericardium without effusion. Aorta Normal ascending aorta dimension. Sheba Recinos (Electronically Signed) Final Date: 01 December 2016 14:23
[2016-12-01] MEDS: fentaNYL INJ 1,250 MCG in SODIUM CHLORIDE 0.9% 225 ML IV SCH (15:47)
[2016-12-02] MEDS: methylPREDNISolone SOD SUC 40 MG/1 ML VIAL IV SCH ×2 (01:10→14:34)
[2016-12-02] MEDS: cefTRIAXone 1,000 MG in SODIUM CHLORIDE 0.9% 100 ML IV SCH (01:13)
[2016-12-02] MEDS: ENOXAPARIN 40 MG/0.4 ML SYRINGE SUBCUT SCH (01:13)
[2016-12-02] MEDS: ALBUTEROL/IPRATROPIUM 3 ML NEB RESP TX SCH ×4 (01:46→19:40)
[2016-12-02] MEDS: PROPOFOL 1,000 MG/100 ML BOTTLE IV SCH ×4 (01:52→19:17)
[2016-12-02 03:45] LABS: ABG Base Excess 4.4 MMOL/L (-2.5-2.5); ABG HCO3 28.4 MMOL/L (20-26); ABG Oxygen Saturation 97.5 % (95-100); ABG PCO2 55.7 MM HG (35-48); ABG PH 7.363 (7.35-7.45); ABG PO2 96.2 MM HG (80-95); ABG TCO2 27.3 MMOL/L (23-27); Allen Test Positive; Pt O2 Delivery Device Ventilator
[2016-12-02 05:32] LABS: Calcium 8.6 MG/DL (8.5-10.1); Magnesium 2.5 MG/DL (1.8-2.4); Potassium 5.2 MMOL/L (3.5-5.1)
[2016-12-02 05:48] LABS: Calcium 8.7 MG/DL (8.5-10.1); Osmolality,Calculated 277.1 MOS/KG (273-304); Phosphorous 3.6 MG/DL (2.5-4.9); Potassium 5.1 MMOL/L (3.5-5.1); Prealbumin 18.5 MG/DL (20-40)
[2016-12-02] MEDS: fentaNYL INJ 1,250 MCG in SODIUM CHLORIDE 0.9% 225 ML IV SCH (06:17)
[2016-12-02] MEDS: INSULIN REGULAR 100 UNIT/ML SUBCUT SCH ×3 (06:17→19:14)
--- NOTE | 2016-12-02 08:16 | Pulmonology Progress Note ---
Pulmonary - PN: Subj Interval history: This is a 46-year-old male whom I saw in pulmonary consultation 11/28/2016. Has a long history of respiratory failure for oxygen hypoxemia. He has a nonfunctioning left hemidiaphragm. He was admitted with respiratory failure for oxygen and carbon dioxide and required intubation mechanical ventilation. My impressions were. 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 Patient's on mechanical ventilation. He is on a weaning protocol. On 11/30/2016 he was able to do 4-1/2 hours of CPAP. His chest x-ray shows bilateral infiltrates. Natruretic peptide is increased from 121-213. Electrolytes are normal. Creatinine is 0.90 with the BUN of 32. ABGs on mechanical ventilation FiO2 40% shows a pH of 7.39, PCO2 of 50.0, PO2 of 85.3 and a bicarb of 29.8. This patient will require hypercarbia in order to extubate. He now has a #8 tube. This patient has been started on Diamox 250 mg IV push every 12 hours. Bronchoscopy specimens have no growth. Patient has become afebrile. 12/02/2016. Patient's had a fairly stable night. Today's chest x-ray shows less bilateral pulmonary infiltrates. There is chronic elevation of left hemidiaphragm. No mechanical ventilation and FiO2 40% pH is 7.36, PCO2 is 55.7 , PO2 is 96.2 and bicarb is 28.4. Patient was able to do 8 hours on CPAP on . Sodium is 135. Potassium 5.1. Creatinine is stable at 0.8 with a BUN of 39. Echocardiogram. Ejection fraction 60%. Right ventricular systolic pressure is 47 which should equal pulmonary artery pressure. No significant valvular disease. There is right atrial, right ventricular and left atrial enlargement. Physical exam. General. No distress. Can cooperate. Psychiatric. Oriented 3 I think Vital signs. See below Face. Symmetrical. No swelling of the lips or tongue. Neck. No meningismus no masses. Lymphatics. No submandibular cervical supraclavicular or epitrochlear adenopathy. Chest coarse large airway congestion Heart. No definite gallop Abdomen. Scattered bowel sounds Extremities. Mild chronic venous stasis in the lower extremities. Neurologic. Cranial nerves are intact. Patient can move all 4 extremities. It is known that he has a nonfunctioning left hemidiaphragm The remainder of the physical exam is noncontributory. Plan: 11/28/2016 #1: Ventilator weaning protocol #2: Initiate early progressive mobility #3: Patient has a size 7 ET tube. Given the fact that he has had a thoracotomy and chronic CO2 retention, he will be very difficult to wean down with this size tube. We will ask anesthesia to electively change this out to a larger tube. #4: Once anesthesia is able to give us a larger ET tube, we will proceed with fiberoptic bronchoscopy. #5: Daily chest x-ray and ABGs while intubated. #6: Decrease FiO2 to 40% #7: See orders 12/01/2016. 1. See today's note above 2. Continue weaning protocol 3. Chest x-ray has deteriorated, BNP is elevated. Will get echocardiogram. 12/02/2016. 1. See today's note, above 2. Continue protocols. 3. Continue daily chest x-rays ABGs and lab. 4. The patient is making slow steady progress. In order to continue weaning will have to keep a mild elevation of his PCO twos as he is a CO2 retainer Exam (Progress Note) - Constitutional Vitals: Period Temp Pulse Resp BP Sys/Pastor Pulse Ox Last 24 Hr 97.1 F-97.8 F 54-87 18-32 121-173/63-102 91-99 Results - Labs CBC & BMP: 12/01/16 08:42 12/02/16 04:25
--- NOTE | 2016-12-02 08:43 | XRay Report ---
XR chest 1V portable Indication: Ventilator patient Comparison: 01 December 2016 Findings: The heart and mediastinum are stable in size and configuration. The lines and tubes are unchanged in position. The pulmonary vascularity is increased but similar to previous exam. Lower lung density is similar to previous study. No other lung infiltrates, effusions, pneumothorax or other abnormality is demonstrated. Impression: No significant change. PROCEDURE INTERPRETED AT [facility] DEPARTMENT OF RADIOLOGY Final Report Signed by: Dr. Danish Sauceda
[2016-12-02] MEDS: PANTOPRAZOLE 40 MG VIAL IV SCH (09:16)
[2016-12-02] MEDS: BACITRACIN OPH OINT 3.5 GM TUBE BOTH EYES SCH ×3 (09:16→21:27)
--- NOTE | 2016-12-02 10:07 | Hospitalist Progress Note ---
Assessment and Plan - Time spent with patient Time spent with patient: Less than 30 minutes (1) Bacterial conjunctivitis of both eyes Status: Acute Assessment and plan: 46-year-old male with history of obesity hypoventilation syndrome, asthma, hypertension, morbid obesity, history of malignant mediastinal teratoma requiring left thoracotomy with lobectomy, obstructive sleep apnea admitted by the hospitalist service on 11/28/2016 with acute respiratory failure. Patient was transferred from the [facility] already sedated on the vent. Pulmonary is following the patient. Dr. Shepard will see and examined patient and further recommendations to follow. Acute hypoxemic and hypercapnic respiratory failure--patient is undergoing weaning trials by Dr. Camilo from pulmonary. Patient is on diprivan and fentanyl drip due to his agitation. We will add some Haldol p.o. 3 times daily through his NG to help with his agitation and take him off the fentanyl drip. Patient is to undergo CPAP trials by respiratory today and hope extubation soon. Patient did tolerate 8 hours yesterday. Elevated blood sugars--patient does not have diabetes listed as a medical problem and his blood sugars are running between 128-145. We will continue to monitor these. Current Visit: Yes (2) Acute on chronic respiratory failure with hypoxemia Status: Acute Current Visit: Yes (3) History of lobectomy of lung Status: Chronic Current Visit: No (4) Obesity hypoventilation syndrome Status: Chronic Current Visit: No (5) ORIANA (obstructive sleep apnea) Status: Acute Current Visit: No Hospitalist: Subjective Interval history: Patient is sedated and on the vent. Nurse states he will wake up periodically and get agitated and cuss at her. He is on dipper Van and fentanyl drip. He would not open his eyes to verbal or tactile stimuli. Exam - Constitutional Vitals: Period Temp Pulse Resp BP Sys/Pastor Pulse Ox Last 24 Hr 96.7 F-97.8 F 54-87 13-32 121-173/63-102 91-99 Exam: 46-year-old morbidly obese [place] male, sedated on the vent Sclera red and sticky drainage Chest clear CV regular rate and rhythm Abdomen obese, good bowel sounds Extremities with 1+ edema Results - Labs CBC & BMP: 12/01/16 08:42 12/02/16 04:25 Lab Results: I have reviewed the past 24 hour labs - Diagnostic Findings Procedure: Chest x-ray: report reviewed by me (Lung density of bilateral pleural effusions are similar to study yesterday.)
[2016-12-02] MEDS: SODIUM CHLORIDE 0.9% 1,000 ML IV SCH (11:00)
[2016-12-02] MEDS: HALOPERIDOL CONCENTRATE 2 MG/ML 15 ML BOTTLE PO SCH ×2 (14:35→21:28)
[2016-12-02] MEDS: MAGNESIUM HYDROXIDE SUSP 30 ML UDCUP PO PRN (21:27)
[2016-12-03] MEDS: INSULIN REGULAR 100 UNIT/ML SUBCUT SCH ×5 (00:24→23:36)
[2016-12-03] MEDS: SODIUM CHLORIDE 0.9% 1,000 ML IV SCH (00:24)
[2016-12-03] MEDS: ALBUTEROL/IPRATROPIUM 3 ML NEB RESP TX SCH ×4 (01:05→19:53)
[2016-12-03] MEDS: PROPOFOL 1,000 MG/100 ML BOTTLE IV SCH ×4 (01:13→19:00)
[2016-12-03] MEDS: methylPREDNISolone SOD SUC 40 MG/1 ML VIAL IV SCH ×3 (01:26→23:36)
[2016-12-03] MEDS: ENOXAPARIN 40 MG/0.4 ML SYRINGE SUBCUT SCH (01:28)
[2016-12-03] MEDS: cefTRIAXone 1,000 MG in SODIUM CHLORIDE 0.9% 100 ML IV SCH (01:31)
[2016-12-03 03:32] LABS: ABG Base Excess 4.3 MMOL/L (-2.5-2.5); ABG HCO3 28.3 MMOL/L (20-26); ABG Oxygen Saturation 98.3 % (95-100); ABG PCO2 55.7 MM HG (35-48); ABG PH 7.361 (7.35-7.45); ABG TCO2 27.3 MMOL/L (23-27); Allen Test Positive; Pt O2 Delivery Device Ventilator
[2016-12-03 05:06] LABS: Calcium 8.5 MG/DL (8.5-10.1); Magnesium 2.4 MG/DL (1.8-2.4); Osmolality,Calculated 281.8 MOS/KG (273-304); Potassium 5.3 MMOL/L (3.5-5.1)
--- NOTE | 2016-12-03 07:33 | XRay Report ---
History: Patient on ventilator Date: 12/03/2016 Study: Chest x-ray AP portable Comparison exam: 12/02/2016 The endotracheal and nasogastric tubes remain in satisfactory position. There is continued cardiomegaly. There is increased prominence of the pulmonary vasculature, though this is stable if not improved. There is some atelectatic change in the lung bases. There is some hazy perihilar edema bilaterally. There is no increasing pleural effusion of significance. Osseous structures are unchanged. Impression: Continued bilateral pulmonary edema, the same or slightly improved. Continued bibasilar atelectasis PROCEDURE INTERPRETED AT [facility] DEPARTMENT OF RADIOLOGY Final Report Signed by: Dr. Amy Segal
[2016-12-03] MEDS: BACITRACIN OPH OINT 3.5 GM TUBE BOTH EYES SCH ×3 (08:46→20:17)
[2016-12-03] MEDS: PANTOPRAZOLE 40 MG VIAL IV SCH (08:47)
[2016-12-03] MEDS: HALOPERIDOL CONCENTRATE 2 MG/ML 15 ML BOTTLE PO SCH ×3 (08:47→20:16)
--- NOTE | 2016-12-03 10:47 | Hospitalist Progress Note ---
Assessment and Plan (1) Acute on chronic respiratory failure with hypoxemia Status: Acute Assessment and plan: 1)resp failure- he is doing better with weaning trials after the addition of Haldol yesterday. He remains on Diprivan, off fentanyl. 2)morbid obesity 3)ORIANA/OHS- will probably need BIPAP at extubation. 4)elevated gllucose- likely diabetic. check hgba1c. use SSI prn. 5)conjunctival infection- improving with topical antibiotics. Current Visit: Yes (2) Morbid obesity Status: Chronic Current Visit: No (3) History of lobectomy of lung Status: Chronic Current Visit: No (4) Obesity hypoventilation syndrome Status: Chronic Current Visit: No (5) ORIANA (obstructive sleep apnea) Status: Acute Current Visit: No (6) Bacterial conjunctivitis of both eyes Status: Acute Current Visit: Yes Hospitalist: Subjective Interval history: Mr Baldwin is doing well this morning. He did CPAP for 12 hours yesterday. He is alert and nods and shakes his head to questions. He is cooperative and has not been aggressive as was reported yesterday. He is tolerating Haldol. Exam - Constitutional Vitals: Period Temp Pulse Resp BP Sys/Pastor Pulse Ox Last 24 Hr 96.9 F-98.2 F 51-100 11-30 116-153/63-97 92-100 General appearance: no acute distress, morbidly obese - Eye Eye exam: Present: EOMI. Absent: scleral icterus Pupils: Present: JUS - Respiratory Respiratory exam: Present: clear to auscultation bilaterally (distant breath sounds) - Cardiovascular Cardiovascular exam: Present: regular rate and rhythm - GI/Abdominal GI/Abdominal exam: Present: normal bowel sounds, soft. Absent: tenderness - Extremities Exam Extremities exam: Present: edema (1+ edema in hands, LE ) Results - Labs CBC & BMP: 12/01/16 08:42 12/03/16 04:05 Lab Results: I have reviewed the past 24 hour labs
--- NOTE | 2016-12-03 10:53 | Pulmonology Progress Note ---
Pulmonary - PN: Subj Interval history: This is a 46-year-old male whom I saw in pulmonary consultation 11/28/2016. Has a long history of respiratory failure for oxygen hypoxemia. He has a nonfunctioning left hemidiaphragm. He was admitted with respiratory failure for oxygen and carbon dioxide and required intubation mechanical ventilation. My impressions were. 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 Patient's on mechanical ventilation. He is on a weaning protocol. On 11/30/2016 he was able to do 4-1/2 hours of CPAP. His chest x-ray shows bilateral infiltrates. Natruretic peptide is increased from 121-213. Electrolytes are normal. Creatinine is 0.90 with the BUN of 32. ABGs on mechanical ventilation FiO2 40% shows a pH of 7.39, PCO2 of 50.0, PO2 of 85.3 and a bicarb of 29.8. This patient will require hypercarbia in order to extubate. He now has a #8 tube. This patient has been started on Diamox 250 mg IV push every 12 hours. Bronchoscopy specimens have no growth. Patient has become afebrile. 12/02/2016. Patient's had a fairly stable night. Today's chest x-ray shows less bilateral pulmonary infiltrates. There is chronic elevation of left hemidiaphragm. No mechanical ventilation and FiO2 40% pH is 7.36, PCO2 is 55.7 , PO2 is 96.2 and bicarb is 28.4. Patient was able to do 8 hours on CPAP on . Sodium is 135. Potassium 5.1. Creatinine is stable at 0.8 with a BUN of 39. Echocardiogram. Ejection fraction 60%. Right ventricular systolic pressure is 47 which should equal pulmonary artery pressure. No significant valvular disease. There is right atrial, right ventricular and left atrial enlargement. 12/03/2016. This patient has advanced to stage V of the weaning protocol. ABGs on mechanical ventilation FiO2 40% shows a pH 7.36, PCO2 55.7, PO2 105, bicarb 28.3. Electrolytes are in the normal range. Creatinine 0.7. BUN is some 33. Patient is getting NG hyperalimentation and get 75 cc of saline per hour. We will check his CBC to make sure the BUN is not related to bleed. Chest x-ray shows some improvement. There is still marked elevation left hemidiaphragm and residual atelectasis above the diaphragm. The right-sided infiltrates are improved but not resolved and is some residual atelectasis at the bases. This patient's cough is ineffective and he has retained secretions. He will be evaluated with fiberoptic bronchoscopy in the morning. Physical exam. General. No distress. Can cooperate. Psychiatric. Oriented 3 I think Vital signs. See below Face. Symmetrical. No swelling of the lips or tongue. Neck. No meningismus no masses. Lymphatics. No submandibular cervical supraclavicular or epitrochlear adenopathy. Chest coarse large airway congestion Heart. No definite gallop Abdomen. Scattered bowel sounds Extremities. Mild chronic venous stasis in the lower extremities. Neurologic. Cranial nerves are intact. Patient can move all 4 extremities. It is known that he has a nonfunctioning left hemidiaphragm The remainder of the physical exam is noncontributory. Plan: 11/28/2016 #1: Ventilator weaning protocol #2: Initiate early progressive mobility #3: Patient has a size 7 ET tube. Given the fact that he has had a thoracotomy and chronic CO2 retention, he will be very difficult to wean down with this size tube. We will ask anesthesia to electively change this out to a larger tube. #4: Once anesthesia is able to give us a larger ET tube, we will proceed with fiberoptic bronchoscopy. #5: Daily chest x-ray and ABGs while intubated. #6: Decrease FiO2 to 40% #7: See orders 12/01/2016. 1. See today's note above 2. Continue weaning protocol 3. Chest x-ray has deteriorated, BNP is elevated. Will get echocardiogram. 12/02/2016. 1. See today's note, above 2. Continue protocols. 3. Continue daily chest x-rays ABGs and lab. 4. The patient is making slow steady progress. In order to continue weaning will have to keep a mild elevation of his PCO twos as he is a CO2 retainer 12/03/2016 1. See today's note, above. 2. Fiberoptic bronchoscopy in the morning 3. Stage V weaning protocol 4. Check CBC 5. Continue to follow lab ABGs and chest Exam (Progress Note) - Constitutional Vitals: Period Temp Pulse Resp BP Sys/Pastor Pulse Ox Last 24 Hr 96.9 F-98.2 F 51-100 11-30 116-153/63-97 92-100 Results - Labs CBC & BMP: 12/01/16 08:42 12/03/16 04:05
[2016-12-03 12:14] LABS: Basophils % 0.1 % (0.0-0.8); Eosinophils % 0.2 % (0.00-10.9); Hemoglobin 14.5 GM/DL (14.0-18.0); Immature Granulocytes % 0.4 %; Immature Granulocytes Absolute 0.03 #; Lymphocytes # 0.8 10*3/uL (1.4-4.0); Lymphocytes % 10.5 % (21.2-54.2); Mean Corpuscular HGB Conc 29.8 GM/DL (32-36); Mean Corpuscular Hemoglobin 27 PG (27-34); Mean Corpuscular Volume 91.9 FL (87-102); Mean Platelet Volume 10.5 FL (9.6-12.0); Monocytes # 0.8 10*3/uL (0.11-0.8); Neutrophils # 6.3 10*3/uL (1.4-7.4); Neutrophils % 78.8 % (38.7-73.9); Platelet Count 139 T/CUMM (130-400); Red Blood Count 5.29 MC/CUMM (3.8-5.5); Red Cell Distribution Width 16.9 % (9.3-17.3)
[2016-12-03 12:15] LABS: Hematocrit 48.6 VOL% (42.0-52.0)
[2016-12-04] MEDS: ALBUTEROL/IPRATROPIUM 3 ML NEB RESP TX SCH ×4 (00:17→19:20)
[2016-12-04] MEDS: ENOXAPARIN 40 MG/0.4 ML SYRINGE SUBCUT SCH (00:50)
[2016-12-04] MEDS: cefTRIAXone 1,000 MG in SODIUM CHLORIDE 0.9% 100 ML IV SCH (00:50)
[2016-12-04] MEDS: PROPOFOL 1,000 MG/100 ML BOTTLE IV SCH ×5 (00:53→23:16)
[2016-12-04 03:24] LABS: ABG Base Excess 5.6 MMOL/L (-2.5-2.5); ABG HCO3 32.2 MMOL/L (20-26); ABG Oxygen Saturation 98.6 % (95-100); ABG PCO2 54.5 MM HG (35-48); ABG PH 7.389 (7.35-7.45); ABG PO2 118.9 MM HG (80-95); ABG TCO2 33.8 MMOL/L (23-27); Allen Test Positive; Pt O2 Delivery Device Ventilator
[2016-12-04 04:54] LABS: INR 1.1; PT Patient Result 12.1 SECS; Partial Thromboplastin Time 28.2 SECS (0-40)
[2016-12-04 05:06] LABS: Calcium 8.6 MG/DL (8.5-10.1); Osmolality,Calculated 282.7 MOS/KG (273-304)
[2016-12-04 05:09] LABS: Magnesium 2.3 MG/DL (1.8-2.4); Phosphorous 3.7 MG/DL (2.5-4.9); Prealbumin 22.1 MG/DL (20-40)
[2016-12-04 05:13] LABS: Basophils % 0.1 % (0.0-0.8); Eosinophils % 0.3 % (0.00-10.9); Hematocrit 47.3 VOL% (42.0-52.0); Immature Granulocytes % 0.4 %; Immature Granulocytes Absolute 0.03 #; Lymphocytes # 0.7 10*3/uL (1.4-4.0); Lymphocytes % 10.1 % (21.2-54.2); Mean Corpuscular HGB Conc 29.8 GM/DL (32-36); Mean Corpuscular Hemoglobin 27 PG (27-34); Mean Corpuscular Volume 90.8 FL (87-102); Mean Platelet Volume 11.4 FL (9.6-12.0); Monocytes # 0.4 10*3/uL (0.11-0.8); Neutrophils # 5.7 10*3/uL (1.4-7.4); Neutrophils % 83.1 % (38.7-73.9); Platelet Count 122 T/CUMM (130-400); Red Blood Count 5.21 MC/CUMM (3.8-5.5); Red Cell Distribution Width 16.4 % (9.3-17.3); White Blood Count 6.8 T/CUMM (4-12)
[2016-12-04 05:31] LABS: Hemoglobin 14.1 GM/DL (14.0-18.0)
[2016-12-04] MEDS: INSULIN REGULAR 100 UNIT/ML SUBCUT SCH ×3 (05:44→19:31)
--- NOTE | 2016-12-04 07:57 | XRay Report ---
History is ventilator management Comparison 12/03/2016 Mediastinal contours and support devices grossly unchanged. ET tube tip remains at T5 There remains elevation left diaphragm with continued [id number] diffuse bilateral hazy pulmonary infiltrates versus edema and possible small right effusion. No new areas of consolidation are seen. Impression: No significant change described above PROCEDURE INTERPRETED AT [facility] DEPARTMENT OF RADIOLOGY Final Report Signed by: Dr. Cindy Latham
--- NOTE | 2016-12-04 09:07 | Event Note ---
In hospital therapeutic and diagnostic fiberoptic bronchoscopy. Bilateral bronchoalveolar lavages were sent for cytology, Gram stain, bacterial cultures, AFB stains and culture, fungal stains and culture. 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 Past history of a malignant mediastinal teratoma. Bilateral atelectasis. Mechanical ventilation. Retained secretions in an ineffective cough. For these reasons he is evaluated with fiberoptic bronchoscopy. Endotracheal tube is in good position. The sydnie was sharp. The left lung was full of thick tenacious secretions that extended into the left upper lung and the left lower lung. These were removed with bronchoalveolar lavage. There was mild endobronchial erythema and edema. No endobronchial lesions to suggest cancer were seen. The right mainstem bronchus was full of thick tenacious secretions that extended into the right upper lung, the right middle lung and the right lower lung. All 3 lobes were lavaged lavaged until clear. There was some mild erosive friable bronchitis especially in the right lower lung. There was mild edema associated with this. Patient had underlying collapsible airways. The patient tolerated procedure well there were no complications Impression. 1. Mechanical ventilation 2. Retained secretions 3. Ineffective cough 4. Bilateral lateral atelectasis 5. Pneumonia 6. See above Plan. 1. Follow-up x-ray 2. Check bronchoscopy specimens 3. Continue weaning protocol
[2016-12-04] MEDS: BACITRACIN OPH OINT 3.5 GM TUBE BOTH EYES SCH ×3 (09:46→21:09)
[2016-12-04] MEDS: MULTIVITAMIN LIQUID (CENTRUM) 60 ML BOTTLE PER TUBE SCH (09:46)
[2016-12-04] MEDS: HALOPERIDOL CONCENTRATE 2 MG/ML 15 ML BOTTLE PO SCH ×3 (09:47→21:09)
--- NOTE | 2016-12-04 09:56 | Hospitalist Progress Note ---
Assessment and Plan (1) Acute on chronic respiratory failure with hypoxemia Status: Acute Assessment and plan: 1)resp failure- he is doing better with weaning trials after the addition of Haldol yesterday. He remains on Diprivan but tolerating lower doses. Bronch this morning with cultures pending. Had thoracotaomy for malignant teratoma in 1983. 2)morbid obesity 3)ORIANA/OHS- may need BIPAP at extubation. 4)elevated glucose- likely diabetic. check hgba1c. use SSI prn. 5)conjunctival infection- improving with topical antibiotics. Current Visit: Yes (2) Morbid obesity Status: Chronic Current Visit: No (3) History of lobectomy of lung Status: Chronic Current Visit: No (4) Obesity hypoventilation syndrome Status: Chronic Current Visit: No (5) ORIANA (obstructive sleep apnea) Status: Acute Current Visit: No (6) Bacterial conjunctivitis of both eyes Status: Acute Current Visit: Yes Hospitalist: Subjective Interval history: Mr Baldwin is stable on CPAP this morning. He was bronched and had retained secretions that were removed with cultures sent. He is more alert this morning on less Propofol and is asking and answering questions. Exam - Constitutional Vitals: Period Temp Pulse Resp BP Sys/Pastor Pulse Ox Last 24 Hr 96.5 F-97.8 F 56-96 10-37 104-150/64-98 92-98 General appearance: no acute distress, morbidly obese - Eye Eye exam: Present: EOMI. Absent: scleral icterus - Respiratory Respiratory exam: Present: clear to auscultation bilaterally (distant) - Cardiovascular Cardiovascular exam: Present: regular rate and rhythm - GI/Abdominal GI/Abdominal exam: Present: normal bowel sounds, soft. Absent: tenderness - Extremities Exam Extremities exam: Present: edema (about the same, obese lower extremities with trace dependent edema) - Neurological Exam Neurological exam: Present: alert - Skin Skin exam: Present: warm, dry Results - Labs CBC & BMP: 12/04/16 04:18 12/04/16 04:18 Lab Results: I have reviewed the past 24 hour labs
[2016-12-04] MEDS: PANTOPRAZOLE 40 MG VIAL IV SCH (10:02)
[2016-12-04 11:19] LABS: Allen Test Positive
--- NOTE | 2016-12-04 11:19 | Pulmonology Progress Note ---
Pulmonary - PN: Subj Interval history: Nick Hernandez, [facility] acting as scribe for Dr. Ryan Camilo This is a 46-year-old male who we saw in pulmonary consultation 11/28/2016. Has a long history of respiratory failure for oxygen hypoxemia. He has a nonfunctioning left hemidiaphragm. He was admitted with respiratory failure for oxygen and carbon dioxide and required intubation mechanical ventilation. 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 Patient's on mechanical ventilation. He is on a weaning protocol. On 11/30/2016 he was able to do 4-1/2 hours of CPAP. His chest x-ray shows bilateral infiltrates. Natruretic peptide is increased from 121-213. Electrolytes are normal. Creatinine is 0.90 with the BUN of 32. ABGs on mechanical ventilation FiO2 40% shows a pH of 7.39, PCO2 of 50.0, PO2 of 85.3 and a bicarb of 29.8. This patient will require hypercarbia in order to extubate. He now has a #8 tube. This patient has been started on Diamox 250 mg IV push every 12 hours. Bronchoscopy specimens have no growth. Patient has become afebrile. 12/02/2016. Patient's had a fairly stable night. Today's chest x-ray shows less bilateral pulmonary infiltrates. There is chronic elevation of left hemidiaphragm. No mechanical ventilation and FiO2 40% pH is 7.36, PCO2 is 55.7 , PO2 is 96.2 and bicarb is 28.4. Patient was able to do 8 hours on CPAP on . Sodium is 135. Potassium 5.1. Creatinine is stable at 0.8 with a BUN of 39. Echocardiogram. Ejection fraction 60%. Right ventricular systolic pressure is 47 which should equal pulmonary artery pressure. No significant valvular disease. There is right atrial, right ventricular and left atrial enlargement. 12/03/2016. This patient has advanced to stage V of the weaning protocol. ABGs on mechanical ventilation FiO2 40% shows a pH 7.36, PCO2 55.7, PO2 105, bicarb 28.3. Electrolytes are in the normal range. Creatinine 0.7. BUN is some 33. Patient is getting NG hyperalimentation and get 75 cc of saline per hour. We will check his CBC to make sure the BUN is not related to bleed. Chest x-ray shows some improvement. There is still marked elevation left hemidiaphragm and residual atelectasis above the diaphragm. The right-sided infiltrates are improved but not resolved and is some residual atelectasis at the bases. This patient's cough is ineffective and he has retained secretions. He will be evaluated with fiberoptic bronchoscopy in the morning. 12/04/2016. Patient underwent fiberoptic bronchoscopy this morning. This showed retained secretions, ineffective cough, pneumonia, and bilateral atelectasis. Please see the bronchoscopy report for more information. Previous bronchoscopy lavage Gram stain showed gram-positive cocci, but culture grew no organisms. There is been no reported AFB or fungus. The patient's ABGs this morning on mechanical ventilation and an FiO2 of 40% showed a pH of 7.389, PCO2 54.5, PO2 118.9, bicarb 32.2, and oxygen saturation 98.6%. We have asked the patient be placed on a T-tube trial today. Will obtain ABGs approximately 1 hour later. We have asked that these results be called to us. Medications have been reviewed. We made no changes today. Labs been reviewed. White count is 6800 with 83.1% segs; H&H 14.1/47.3; platelet count 122,000; INR 1.1; creatinine 0.70, BUN 28, electrolytes are normal; hemoglobin A1c 6.8% Exam (Progress Note) - Constitutional Vitals: Period Temp Pulse Resp BP Sys/Pastor Pulse Ox Last 24 Hr 96.5 F-97.8 F 56-97 10-37 104-155/64-98 30-98 Exam: Chest with coarse large airway congestion, but improved post bronchoscopy Heart with no definite gallop Abdomen is obese but nontender with scattered bowel sounds Lower extremities with mild chronic venous stasis Psychiatric awake and able to follow commands Neurologic cranial nerves appear to be intact with movement in all 4 extremities Plan: Continue ventilator weaning protocol. T-tube trials today with ABGs approximately 1 hour afterwards. Daily ABGs and chest x-ray while on the ventilator. Follow-up bronchoscopy results when available. See orders. Results - Labs CBC & BMP: 12/04/16 04:18 12/04/16 04:18
[2016-12-04 11:21] LABS: ABG Base Excess 1.8 MMOL/L (-2.5-2.5); ABG Oxygen Saturation 96.8 % (95-100); ABG PH 7.238 (7.35-7.45); ABG TCO2 28.9 MMOL/L (23-27)
[2016-12-04 11:22] LABS: ABG PCO2 77.2 MM HG (35-48)
[2016-12-04] MEDS: methylPREDNISolone SOD SUC 40 MG/1 ML VIAL IV SCH ×2 (12:00→23:13)
[2016-12-04] MEDS: NYSTATIN 500,000 UNIT/5 ML UDCUP SWISH/SWAL SCH ×3 (14:11→21:09)
[2016-12-05] MEDS: INSULIN REGULAR 100 UNIT/ML SUBCUT SCH ×5 (00:06→23:23)
[2016-12-05] MEDS: ALBUTEROL/IPRATROPIUM 3 ML NEB RESP TX SCH ×4 (01:21→19:51)
[2016-12-05] MEDS: cefTRIAXone 1,000 MG in SODIUM CHLORIDE 0.9% 100 ML IV SCH (02:18)
[2016-12-05] MEDS: ENOXAPARIN 40 MG/0.4 ML SYRINGE SUBCUT SCH (02:18)
[2016-12-05 03:59] LABS: ABG Base Excess 4.3 MMOL/L (-2.5-2.5); ABG HCO3 30.9 MMOL/L (20-26); ABG Oxygen Saturation 97.7 % (95-100); ABG PH 7.376 (7.35-7.45); ABG PO2 95.6 MM HG (80-95); ABG TCO2 32.6 MMOL/L (23-27); Allen Test Positive; Pt O2 Delivery Device Ventilator
[2016-12-05 05:45] LABS: Basophils % 0.2 % (0.0-0.8); Eosinophils % 0.3 % (0.00-10.9); Hematocrit 45.7 VOL% (42.0-52.0); Hemoglobin 13.9 GM/DL (14.0-18.0); Immature Granulocytes % 0.2 %; Immature Granulocytes Absolute 0.01 #; Lymphocytes # 0.7 10*3/uL (1.4-4.0); Lymphocytes % 11.4 % (21.2-54.2); Mean Corpuscular HGB Conc 30.4 GM/DL (32-36); Mean Corpuscular Hemoglobin 28 PG (27-34); Mean Corpuscular Volume 90.3 FL (87-102); Mean Platelet Volume 11.1 FL (9.6-12.0); Monocytes # 0.3 10*3/uL (0.11-0.8); Neutrophils # 5.4 10*3/uL (1.4-7.4); Neutrophils % 83.9 % (38.7-73.9); Platelet Count 125 T/CUMM (130-400); Red Blood Count 5.06 MC/CUMM (3.8-5.5); Red Cell Distribution Width 16.5 % (9.3-17.3); White Blood Count 6.4 T/CUMM (4-12)
[2016-12-05] MEDS: PROPOFOL 1,000 MG/100 ML BOTTLE IV SCH ×4 (06:09→23:54)
[2016-12-05 06:20] LABS: Calcium 8.7 MG/DL (8.5-10.1); Osmolality,Calculated 282.7 MOS/KG (273-304); Potassium 4.6 MMOL/L (3.5-5.1)
--- NOTE | 2016-12-05 07:54 | XRay Report ---
History is ventilator management Comparison 12/04/2016 ET tube tip remains at T4. Cardiac silhouette remains enlarged with marked elevation or eventration the left diaphragm Moderate diffuse bilateral hazy and reticular pulmonary opacities remain. There is been no great change attending for differences in technique and positioning Impression: Little change detailed above PROCEDURE INTERPRETED AT [facility] DEPARTMENT OF RADIOLOGY Final Report Signed by: Dr. Cindy Latham
[2016-12-05] MEDS: BACITRACIN OPH OINT 3.5 GM TUBE BOTH EYES SCH ×3 (09:00→20:10)
[2016-12-05] MEDS: MULTIVITAMIN LIQUID (CENTRUM) 60 ML BOTTLE PER TUBE SCH (09:01)
[2016-12-05] MEDS: HALOPERIDOL CONCENTRATE 2 MG/ML 15 ML BOTTLE PO SCH ×3 (09:01→20:09)
[2016-12-05] MEDS: PANTOPRAZOLE 40 MG VIAL IV SCH (09:01)
[2016-12-05] MEDS: NYSTATIN 500,000 UNIT/5 ML UDCUP SWISH/SWAL SCH ×4 (09:01→20:09)
--- NOTE | 2016-12-05 11:14 | Pulmonology Progress Note ---
Pulmonary - PN: Subj Interval history: Nick Hernandez, [facility] acting as scribe for Dr. Ryan Camilo This is a 46-year-old male who we saw in pulmonary consultation 11/28/2016. Has a long history of respiratory failure for oxygen hypoxemia. He has a nonfunctioning left hemidiaphragm. He was admitted with respiratory failure for oxygen and carbon dioxide and required intubation mechanical ventilation. 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 Patient's on mechanical ventilation. He is on a weaning protocol. On 11/30/2016 he was able to do 4-1/2 hours of CPAP. His chest x-ray shows bilateral infiltrates. Natruretic peptide is increased from 121-213. Electrolytes are normal. Creatinine is 0.90 with the BUN of 32. ABGs on mechanical ventilation FiO2 40% shows a pH of 7.39, PCO2 of 50.0, PO2 of 85.3 and a bicarb of 29.8. This patient will require hypercarbia in order to extubate. He now has a #8 tube. This patient has been started on Diamox 250 mg IV push every 12 hours. Bronchoscopy specimens have no growth. Patient has become afebrile. 12/02/2016. Patient's had a fairly stable night. Today's chest x-ray shows less bilateral pulmonary infiltrates. There is chronic elevation of left hemidiaphragm. No mechanical ventilation and FiO2 40% pH is 7.36, PCO2 is 55.7 , PO2 is 96.2 and bicarb is 28.4. Patient was able to do 8 hours on CPAP on . Sodium is 135. Potassium 5.1. Creatinine is stable at 0.8 with a BUN of 39. Echocardiogram. Ejection fraction 60%. Right ventricular systolic pressure is 47 which should equal pulmonary artery pressure. No significant valvular disease. There is right atrial, right ventricular and left atrial enlargement. 12/03/2016. This patient has advanced to stage V of the weaning protocol. ABGs on mechanical ventilation FiO2 40% shows a pH 7.36, PCO2 55.7, PO2 105, bicarb 28.3. Electrolytes are in the normal range. Creatinine 0.7. BUN is some 33. Patient is getting NG hyperalimentation and get 75 cc of saline per hour. We will check his CBC to make sure the BUN is not related to bleed. Chest x-ray shows some improvement. There is still marked elevation left hemidiaphragm and residual atelectasis above the diaphragm. The right-sided infiltrates are improved but not resolved and is some residual atelectasis at the bases. This patient's cough is ineffective and he has retained secretions. He will be evaluated with fiberoptic bronchoscopy in the morning. 12/04/2016. Patient underwent fiberoptic bronchoscopy this morning. This showed retained secretions, ineffective cough, pneumonia, and bilateral atelectasis. Please see the bronchoscopy report for more information. Previous bronchoscopy lavage Gram stain showed gram-positive cocci, but culture grew no organisms. There is been no reported AFB or fungus. The patient's ABGs this morning on mechanical ventilation and an FiO2 of 40% showed a pH of 7.389, PCO2 54.5, PO2 118.9, bicarb 32.2, and oxygen saturation 98.6%. We have asked the patient be placed on a T-tube trial today. Will obtain ABGs approximately 1 hour later. We have asked that these results be called to us. Medications have been reviewed. We made no changes today. Labs been reviewed. White count is 6800 with 83.1% segs; H&H 14.1/47.3; platelet count 122,000; INR 1.1; creatinine 0.70, BUN 28, electrolytes are normal; hemoglobin A1c 6.8% 12/05/2016. The patient was seen today along with his nurse. We will start the patient on T-tube yesterday, however, he did not do as well as we had expected. His PCO2 elevated to 77.2. He is on Diamox and we will continue this. We will continue T-tube trials 1 hour 3 times daily and advance as tolerated. Presently he is on stage V of the weaning protocol. Yesterday we performed fiberoptic bronchoscopy. Gram stain only showed few gram-positive cocci. Culture grew no organisms. He will continue to have daily chest x-rays and ABGs while on the ventilator. He is also on the physical therapy protocol. Medications have been reviewed. We made no changes today. Labs been reviewed. White count is 6483.9% segs; H&H 13.9/45.7; platelet count 125,000; creatinine 0.70, BUN 28, electrolytes were normal ABGs this morning on mechanical ventilation with an FiO2 40% showed pH of 7.376 , PCO2 54.0, PO2 95.6, bicarb 30.9, oxygen saturation 97.7% Exam (Progress Note) - Constitutional Vitals: Period Temp Pulse Resp BP Sys/Pastor Pulse Ox Last 24 Hr 96.5 F-97.3 F 53-94 11-36 119-178/62-104 17-97 Exam: Chest with coarse large airway congestion Heart with no definite gallop Abdomen is obese but nontender and with scattered bowel sounds Lower extremities with mild chronic venous stasis Psychiatric awake and able to follow commands Neurologic cranial nerves appear to be intact with movement in all 4 extremities Plan: Continue ventilator weaning protocol. Physical therapy protocol. T-tube trials 1 hour 3 times daily and advance as tolerated. Daily ABGs and chest x- ray while on the ventilator. See orders. Results - Labs CBC & BMP: 12/05/16 05:28 12/05/16 05:28
--- NOTE | 2016-12-05 11:38 | Hospitalist Progress Note ---
Assessment and Plan (1) Acute on chronic respiratory failure with hypoxemia Status: Acute Assessment and plan: 1)resp failure- continues weaning protocol. Bronch a couple of days ago with cultures all clear. Had thoracotaomy for malignant teratoma in 1983. 2)morbid obesity 3)ORIANA/OHS- may need BIPAP at extubation. 4)elevated glucose- hgba1c 6.8 5)conjunctival infection- improved with topical antibiotics. Current Visit: Yes (2) Morbid obesity Status: Chronic Current Visit: No (3) History of lobectomy of lung Status: Chronic Current Visit: No (4) Obesity hypoventilation syndrome Status: Chronic Current Visit: No (5) ORIANA (obstructive sleep apnea) Status: Acute Current Visit: No (6) Bacterial conjunctivitis of both eyes Status: Acute Current Visit: Yes Hospitalist: Subjective Interval history: Mr Baldwin is stable on vent, with plan to do CPAP and Ttube trials today. No complaints- he remains calm and tries to communicate with speaking and gestures. Exam - Constitutional Vitals: Period Temp Pulse Resp BP Sys/Pastor Pulse Ox Last 24 Hr 96.5 F-97.3 F 53-94 11-36 119-178/62-104 17-97 General appearance: no acute distress, morbidly obese - Eye Eye exam: Present: EOMI. Absent: scleral icterus - Respiratory Respiratory exam: Present: clear to auscultation bilaterally (distant) - Cardiovascular Cardiovascular exam: Present: regular rate and rhythm - GI/Abdominal GI/Abdominal exam: Present: normal bowel sounds, soft. Absent: tenderness - Extremities Exam Extremities exam: Present: edema (trace edema in obese limbs) - Neurological Exam Neurological exam: Present: alert - Skin Skin exam: Present: warm, dry Results - Labs CBC & BMP: 12/05/16 05:28 12/05/16 05:28 Lab Results: I have reviewed the past 24 hour labs
[2016-12-05] MEDS: methylPREDNISolone SOD SUC 40 MG/1 ML VIAL IV SCH ×2 (12:17→22:45)
--- NOTE | 2016-12-05 18:17 | Pathology Report from [facility] ---
[facility] ACCESSION # : [id number] PATIENT NAME : Huey Baldwin ORDERING DR : HILDA VILLELA MD CLINICAL HX: Pneumonia, Respiratory Arrest POST-OP DX: Same SPECIMEN INFO: Washing,Bronchial,JULIO - 20 mls bloody, cloudy CLASS: II CLASS COMMENTS: Marked mucoid debris with reactive squamous metaplasiaCELL BLOCK : Same CLASS LEGEND: CLASS 0 Material inadequate for diagnosis because of (see comment) CLASS I Absence of atypical or abnormal cells CLASS II Atypical Cytology but no evidence of malignancy CLASS III Cytology suggestive of but not conclusive for malignancy CLASS IV Cytology strongly suggestive of malignancy CLASS V Cytology conclusive for malignancy COLLECTED DATE: 12/04/2016 [facility] REPORT DATE: 12/05/2016 ELECTRONICALLY SIGNED BY: Torsten Zuleta M.D. 12/05/2016 - 9:23:30 MTDSpencer
[2016-12-06] MEDS: ALBUTEROL/IPRATROPIUM 3 ML NEB RESP TX SCH ×4 (00:57→20:29)
[2016-12-06] MEDS: cefTRIAXone 1,000 MG in SODIUM CHLORIDE 0.9% 100 ML IV SCH (02:30)
[2016-12-06] MEDS: ENOXAPARIN 40 MG/0.4 ML SYRINGE SUBCUT SCH (02:30)
[2016-12-06 03:35] LABS: Allen Test Positive; Pt O2 Delivery Device Ventilator
[2016-12-06 03:36] LABS: ABG Base Excess 6.1 MMOL/L (-2.5-2.5); ABG HCO3 32.3 MMOL/L (20-26); ABG Oxygen Saturation 98.1 % (95-100); ABG PCO2 52.8 MM HG (35-48); ABG PH 7.405 (7.35-7.45); ABG PO2 103.9 MM HG (80-95)
[2016-12-06] MEDS: PROPOFOL 1,000 MG/100 ML BOTTLE IV SCH ×3 (04:04→14:50)
[2016-12-06 04:58] LABS: Basophils % 0.1 % (0.0-0.8); Eosinophils % 0.5 % (0.00-10.9); Hemoglobin 14.1 GM/DL (14.0-18.0); Immature Granulocytes % 0.1 %; Immature Granulocytes Absolute 0.01 #; Lymphocytes # 1.1 10*3/uL (1.4-4.0); Mean Corpuscular Hemoglobin 27 PG (27-34); Mean Platelet Volume 10.3 FL (9.6-12.0); Monocytes # 0.5 10*3/uL (0.11-0.8); Monocytes % 7.2 % (1.7-12.7); Neutrophils # 5.8 10*3/uL (1.4-7.4); Neutrophils % 77.1 % (38.7-73.9); Platelet Count 129 T/CUMM (130-400); Red Blood Count 5.22 MC/CUMM (3.8-5.5); Red Cell Distribution Width 16.2 % (9.3-17.3); White Blood Count 7.5 T/CUMM (4-12)
[2016-12-06 05:39] LABS: Calcium 8.9 MG/DL (8.5-10.1); Osmolality,Calculated 284.4 MOS/KG (273-304); Potassium 4.5 MMOL/L (3.5-5.1)
[2016-12-06] MEDS: INSULIN REGULAR 100 UNIT/ML SUBCUT SCH ×4 (05:47→23:38)
--- NOTE | 2016-12-06 07:10 | Hospitalist Progress Note ---
Assessment and Plan - Time spent with patient Time spent with patient: Less than 30 minutes (1) Acute respiratory failure with hypercapnia Status: Acute Assessment and plan: 12/06/16: Patient has acute respiratory failure and is being followed by pulmonary. Will continue current care. Cultures have been negative thus far. Blood sugars are fairly well-controlled. Current Visit: No (2) Morbid obesity Status: Chronic Current Visit: No Hospitalist: Subjective Interval history: Patient has been examined and chart is been reviewed. He remains on ventilator and sedated. He does open his eyes to tactile stimulation. Exam - Constitutional Vitals: Period Temp Pulse Resp BP Sys/Pastor Pulse Ox Last 24 Hr 97.0 F-98.6 F 60-93 2-36 117-180/61-87 90-97 General appearance: no acute distress, morbidly obese - Head Head exam: Present: normocephalic, atraumatic - Eye Eye exam: Present: EOMI Pupils: Present: JUS - ENT ENT exam: Present: other (ET tube in place) - Neck Neck exam: Present: normal inspection - Respiratory Respiratory exam: Present: clear to auscultation bilaterally. Absent: rales, rhonchi, wheezes - Cardiovascular Cardiovascular exam: Present: regular rate and rhythm. Absent: tachycardia - GI/Abdominal GI/Abdominal exam: Present: normal bowel sounds, soft. Absent: tenderness, rebound - Extremities Exam Extremities exam: Present: edema. Absent: calf tenderness - Neurological Exam Neurological exam: Present: other (Sedated on the ventilator, will open his eyes to tactile stimuli) - Skin Skin exam: Present: warm, dry. Absent: erythema Results - Labs CBC & BMP: 12/06/16 04:40 12/06/16 04:40 Lab Results: I have reviewed the past 24 hour labs - Diagnostic Findings Procedure: Chest x-ray: image reviewed by me
--- NOTE | 2016-12-06 07:42 | XRay Report ---
Exam: XR chest 1V portable Date: 12/06/2016 4:00 AM Indication: Follow-up ventilator Comparison: None Technical: 12/05/2016 Findings: Cardiomegaly is present. Endotracheal tube and nasogastric tube are present. Low volume effusions are present with shunt vascularity. Mid inspiratory chest was obtained. Mediastinum is otherwise intact. Impression: 1. Cardiomegaly with shunt vascularity interstitial edema 2. Stable position of the endotracheal tube and nasogastric tube 3. No significant interval change PROCEDURE INTERPRETED AT [facility] DEPARTMENT OF RADIOLOGY Final Report Signed by: Dr. Ryan Shah
--- NOTE | 2016-12-06 07:45 | Pulmonology Progress Note ---
Pulmonary - PN: Subj Interval history: This 46-year-old is in with respiratory failure. 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 Came in with very thick secretions and acute respiratory failure. Cultures are pending. He does have hypercarbia and is being treated with Diamox. Weaning per protocol. Exam (Progress Note) - Constitutional Vitals: Period Temp Pulse Resp BP Sys/Pastor Pulse Ox Last 24 Hr 97.0 F-98.6 F 63-93 2-36 117-180/61-87 90-97 Exam: Patient is responsive. His vital signs are normal. Pupils react to light. Orotracheal tube in place. Neck is supple no bruits. Chest reveals a few scattered rhonchi. Heart normal rate and rhythm no murmurs. Abdomen soft no masses. Bowel sounds present. Extremities no clubbing cyanosis or edema. Calves nontender Results - Labs CBC & BMP: 12/06/16 04:40 12/06/16 04:40 Lab Results: I have reviewed the past 24 hour labs - Diagnostic Findings Procedure: Chest x-ray: image reviewed by me, pending (Elevated left diaphragm little change from before. ET tube in good position. Slightly increased interstitial markings.) Assessment and Plan (1) Acute respiratory failure with hypercapnia Status: Acute Assessment and plan: Patient's PCO2 is down to 52. We are starting CPAP trials. Current Visit: No (2) Obesity hypoventilation syndrome Status: Chronic Assessment and plan: Probably has chronically elevated PCO2. 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 Was left with a paralyzed diaphragm after that. Apparently it was a huge tumor. Current Visit: Yes (4) ORIANA (obstructive sleep apnea) Status: Acute Assessment and plan: Will need CPAP or BiPAP once he is extubated Current Visit: No
[2016-12-06] MEDS: PANTOPRAZOLE 40 MG VIAL IV SCH (09:21)
[2016-12-06] MEDS: NYSTATIN 500,000 UNIT/5 ML UDCUP SWISH/SWAL SCH ×4 (09:27→21:23)
[2016-12-06] MEDS: MULTIVITAMIN LIQUID (CENTRUM) 60 ML BOTTLE PER TUBE SCH (09:31)
[2016-12-06] MEDS: HALOPERIDOL CONCENTRATE 2 MG/ML 15 ML BOTTLE PO SCH ×3 (09:31→21:23)
[2016-12-06] MEDS: methylPREDNISolone SOD SUC 40 MG/1 ML VIAL IV SCH ×2 (12:28→22:11)
[2016-12-06] MEDS: BACITRACIN OPH OINT 3.5 GM TUBE BOTH EYES SCH ×3 (12:31→21:22)
[2016-12-06] MEDS: MAGNESIUM HYDROXIDE SUSP 30 ML UDCUP PO PRN (16:13)
[2016-12-07] MEDS: ALBUTEROL/IPRATROPIUM 3 ML NEB RESP TX SCH ×4 (00:54→19:36)
[2016-12-07] MEDS: ENOXAPARIN 40 MG/0.4 ML SYRINGE SUBCUT SCH (01:04)
[2016-12-07] MEDS: cefTRIAXone 1,000 MG in SODIUM CHLORIDE 0.9% 100 ML IV SCH (01:04)
[2016-12-07 03:52] LABS: Allen Test Positive; Pt O2 Delivery Device Ventilator
[2016-12-07 04:01] LABS: ABG Base Excess 4.6 MMOL/L (-2.5-2.5); ABG HCO3 28.6 MMOL/L (20-26); ABG Oxygen Saturation 98.6 % (95-100); ABG PCO2 53.7 MM HG (35-48); ABG PH 7.377 (7.35-7.45); ABG TCO2 26.9 MMOL/L (23-27)
[2016-12-07] MEDS: INSULIN REGULAR 100 UNIT/ML SUBCUT SCH ×3 (05:50→19:43)
[2016-12-07] MEDS: PROPOFOL 1,000 MG/100 ML BOTTLE IV SCH ×3 (05:51→19:40)
--- NOTE | 2016-12-07 06:59 | Hospitalist Progress Note ---
Assessment and Plan - Time spent with patient Time spent with patient: Less than 30 minutes (1) Acute respiratory failure with hypercapnia Status: Acute Assessment and plan: 12/06/16: Patient has acute respiratory failure and is being followed by pulmonary. Will continue current care. Cultures have been negative thus far. Blood sugars are fairly well-controlled. 09/06/16: Patient remains sedated on the ventilator. Pulmonary is managing his vent and attempting weaning. Cultures have been negative thus far. Continue current care. Current Visit: No (2) Morbid obesity Status: Chronic Current Visit: No (3) Obesity hypoventilation syndrome Status: Chronic Current Visit: No (4) Left diaphragm paralysis Status: Chronic Assessment and plan: Patient had a malignant teratoma removed from the mediastinum in 1983 and subsequently had paralyzed left diaphragm. Current Visit: Yes Hospitalist: Subjective Interval history: No new issues overnight. Patient remains sedated and on the ventilator this morning. Exam - Constitutional Vitals: Period Temp Pulse Resp BP Sys/Pastor Pulse Ox Last 24 Hr 97.7 F-97.9 F 58-90 13-58 112-187/63-91 90-100 General appearance: no acute distress, other (Sedated on the ventilator) - Head Head exam: Present: normocephalic, atraumatic - Eye Eye exam: Present: EOMI Pupils: Present: JUS - ENT ENT exam: Present: normal exam - Neck Neck exam: Present: normal inspection - Respiratory Respiratory exam: Present: clear to auscultation bilaterally. Absent: rales, rhonchi, wheezes - Cardiovascular Cardiovascular exam: Present: regular rate and rhythm. Absent: tachycardia - GI/Abdominal GI/Abdominal exam: Present: normal bowel sounds, soft. Absent: tenderness, rebound - Extremities Exam Extremities exam: Present: edema. Absent: calf tenderness - Neurological Exam Neurological exam: Present: other (Sedated on the ventilator) - Skin Skin exam: Present: warm, dry. Absent: rash Results - Labs CBC & BMP: 12/06/16 04:40 12/06/16 04:40 Lab Results: I have reviewed the past 24 hour labs - Diagnostic Findings Procedure: Chest x-ray: image reviewed by me
--- NOTE | 2016-12-07 08:36 | Pulmonology Progress Note ---
Pulmonary - PN: Subj Interval history: This 46-year-old is in with respiratory failure. 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 Came in with very thick secretions and acute respiratory failure. Cultures are pending. He does have hypercarbia and is being treated with Diamox. Weaning per protocol. 12/07/2016 patient is continuing to improve with weaning trials. He is responsive. Hopefully should be ready for extubation about tomorrow. Exam (Progress Note) - Constitutional Vitals: Period Temp Pulse Resp BP Sys/Pastor Pulse Ox Last 24 Hr 97.7 F-97.9 F 58-90 13-58 112-187/63-91 90-100 Exam: Patient is responsive. His vital signs are normal. Pupils react to light. Orotracheal tube in place. Neck is supple no bruits. Chest reveals a few scattered rhonchi. Heart normal rate and rhythm no murmurs. Abdomen soft no masses. Bowel sounds present. Extremities no clubbing cyanosis or edema. Calves nontender Results - Labs CBC & BMP: 12/06/16 04:40 12/06/16 04:40 Lab Results: I have reviewed the past 24 hour labs - Diagnostic Findings Procedure: Chest x-ray: image reviewed by me (Elevated left diaphragm. Lower lobe interstitial infiltrates bilaterally. ET tube good position.) Assessment and Plan (1) Acute respiratory failure with hypercapnia Status: Acute Assessment and plan: Patient's PCO2 is down to 52. We are starting CPAP trials. 12/07/2016 patient is tolerating CPAP trials. Hopefully will be ready for extubation tomorrow. Current Visit: No (2) Obesity hypoventilation syndrome Status: Chronic Assessment and plan: Probably has chronically elevated PCO2. 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 Was left with a paralyzed diaphragm after that. Apparently it was a huge tumor. Current Visit: Yes (4) ORIANA (obstructive sleep apnea) Status: Acute Assessment and plan: Will need CPAP or BiPAP once he is extubated Current Visit: No
[2016-12-07 08:53] LABS: Basophils % 0.3 % (0.0-0.8); Eosinophils # 0.1 10*3/uL (0.0-0.87); Eosinophils % 1.1 % (0.00-10.9); Hematocrit 47.8 VOL% (42.0-52.0); Hemoglobin 14.4 GM/DL (14.0-18.0); Immature Granulocytes % 0.4 %; Immature Granulocytes Absolute 0.03 #; Lymphocytes # 2.1 10*3/uL (1.4-4.0); Lymphocytes % 27.7 % (21.2-54.2); Mean Corpuscular HGB Conc 30.1 GM/DL (32-36); Mean Corpuscular Hemoglobin 27 PG (27-34); Mean Corpuscular Volume 89.3 FL (87-102); Mean Platelet Volume 11.5 FL (9.6-12.0); Monocytes # 0.6 10*3/uL (0.11-0.8); Monocytes % 8.4 % (1.7-12.7); Neutrophils # 4.6 10*3/uL (1.4-7.4); Neutrophils % 62.1 % (38.7-73.9); Platelet Count 140 T/CUMM (130-400); Red Blood Count 5.35 MC/CUMM (3.8-5.5); Red Cell Distribution Width 16.2 % (9.3-17.3); White Blood Count 7.4 T/CUMM (4-12)
--- NOTE | 2016-12-07 09:06 | XRay Report ---
Exam: XR chest 1V portable Date: 12/07/2016 4:00 AM Indication: Follow-up ventilator Comparison: 12/06/2016 Technical: AP Findings: Endotracheal tube at the mid clavicle. Nasogastric tube present. External cardiac leads are present. Surgical clips in the left intrapulmonic window and left base with chronic elevation left hemidiaphragm. Mild interstitial edema present and low volume effusions without pneumothorax. Cardiomegaly present. Impression: 1. Stable appearance of life support tubes 2. No significant interval change with persistent low volume effusions and elevation left hemidiaphragm and surgical changes left chest with shunt vascularity in the lung cabral bilaterally PROCEDURE INTERPRETED AT [facility] DEPARTMENT OF RADIOLOGY Final Report Signed by: Dr. Ryan Shah
[2016-12-07 09:23] LABS: Calcium 8.6 MG/DL (8.5-10.1); Osmolality,Calculated 279.5 MOS/KG (273-304)
[2016-12-07] MEDS: BACITRACIN OPH OINT 3.5 GM TUBE BOTH EYES SCH ×4 (10:19→21:56)
[2016-12-07] MEDS: MAGNESIUM HYDROXIDE SUSP 30 ML UDCUP PO PRN (10:19)
[2016-12-07] MEDS: NYSTATIN 500,000 UNIT/5 ML UDCUP SWISH/SWAL SCH ×4 (10:19→21:48)
[2016-12-07] MEDS: MULTIVITAMIN LIQUID (CENTRUM) 60 ML BOTTLE PER TUBE SCH (10:19)
[2016-12-07] MEDS: HALOPERIDOL CONCENTRATE 2 MG/ML 15 ML BOTTLE PO SCH ×3 (10:19→21:49)
[2016-12-07] MEDS: PANTOPRAZOLE 40 MG VIAL IV SCH (10:20)
[2016-12-07] MEDS: methylPREDNISolone SOD SUC 40 MG/1 ML VIAL IV SCH (12:14)
[2016-12-08] MEDS: INSULIN REGULAR 100 UNIT/ML SUBCUT SCH ×3 (00:02→12:04)
[2016-12-08] MEDS: methylPREDNISolone SOD SUC 40 MG/1 ML VIAL IV SCH ×3 (00:33→21:40)
[2016-12-08] MEDS: ALBUTEROL/IPRATROPIUM 3 ML NEB RESP TX SCH ×4 (00:57→19:00)
[2016-12-08] MEDS: PROPOFOL 1,000 MG/100 ML BOTTLE IV SCH ×3 (01:05→15:44)
[2016-12-08] MEDS: ENOXAPARIN 40 MG/0.4 ML SYRINGE SUBCUT SCH (02:04)
[2016-12-08] MEDS: cefTRIAXone 1,000 MG in SODIUM CHLORIDE 0.9% 100 ML IV SCH (02:04)
[2016-12-08 03:30] LABS: Allen Test Positive; Pt O2 Delivery Device Ventilator
[2016-12-08 03:44] LABS: ABG Base Excess 4.8 MMOL/L (-2.5-2.5); ABG HCO3 27.1 MMOL/L (20-26); ABG Oxygen Saturation 98.9 % (95-100); ABG PCO2 33.2 MM HG (35-48); ABG PH 7.529 (7.35-7.45); ABG TCO2 28.1 MMOL/L (23-27)
[2016-12-08 05:30] LABS: Calcium 8.9 MG/DL (8.5-10.1); Osmolality,Calculated 281.5 MOS/KG (273-304); Phosphorous 2.2 MG/DL (2.5-4.9)
[2016-12-08 05:38] LABS: Basophils % 0.1 % (0.0-0.8); Eosinophils # 0.1 10*3/uL (0.0-0.87); Eosinophils % 0.8 % (0.00-10.9); Hematocrit 48.6 VOL% (42.0-52.0); Immature Granulocytes % 0.4 %; Immature Granulocytes Absolute 0.03 #; Lymphocytes % 14.5 % (21.2-54.2); Mean Corpuscular HGB Conc 30.9 GM/DL (32-36); Mean Corpuscular Hemoglobin 27 PG (27-34); Mean Corpuscular Volume 88.4 FL (87-102); Mean Platelet Volume 11.3 FL (9.6-12.0); Monocytes # 0.5 10*3/uL (0.11-0.8); Monocytes % 7.4 % (1.7-12.7); Neutrophils # 5.5 10*3/uL (1.4-7.4); Neutrophils % 76.8 % (38.7-73.9); Platelet Count 151 T/CUMM (130-400); Red Cell Distribution Width 15.9 % (9.3-17.3); White Blood Count 7.2 T/CUMM (4-12)
--- NOTE | 2016-12-08 07:36 | XRay Report ---
Portable chest Date: 12/08/2016 Clinical history: Ventilator Comparison: 12/07/2016 Technique: Portable AP sitting chest Findings: The heart remains enlarged. Limited expiratory chest. Prior left thoracotomy with relative elevation of the left hemidiaphragm. Minimal reduction in the diffuse parenchymal findings especially in the right lung. Stable supportive devices with no acute osseous findings. Impression: Limited expiratory chest with very minimal reduction in the atelectasis/edema/infiltration especially in the right lung. Prior left thoracotomy with persistent relative elevation of the left hemidiaphragm. Stable supportive devices. PROCEDURE INTERPRETED AT [facility] DEPARTMENT OF RADIOLOGY Final Report Signed by: Dr. Charmaine Mancia
--- NOTE | 2016-12-08 08:29 | Hospitalist Progress Note ---
Assessment and Plan - Time spent with patient Time spent with patient: Less than 30 minutes (1) Acute respiratory failure with hypercapnia Status: Acute Assessment and plan: 12/06/16: Patient has acute respiratory failure and is being followed by pulmonary. Will continue current care. Cultures have been negative thus far. Blood sugars are fairly well-controlled. 12/07/16: Patient remains sedated on the ventilator. Pulmonary is managing his vent and attempting weaning. Cultures have been negative thus far. Continue current care. 12/08/16: Pulmonary is managing the vent. He is now awake and alert and appears to be close to extubation. Will defer to pulmonary. Current Visit: No (2) Morbid obesity Status: Chronic Current Visit: No (3) Obesity hypoventilation syndrome Status: Chronic Current Visit: No (4) Left diaphragm paralysis Status: Chronic Assessment and plan: Patient had a malignant teratoma removed from the mediastinum in 1983 and subsequently had paralyzed left diaphragm. Current Visit: Yes Hospitalist: Subjective Interval history: Patient remains intubated. Sedation currently off and he is awake and alert and moving all extremities to command. Exam - Constitutional Vitals: Period Temp Pulse Resp BP Sys/Pastor Pulse Ox Last 24 Hr 97.5 F-98.7 F 55-85 15-35 124-156/58-88 88-100 General appearance: no acute distress - Head Head exam: Present: normocephalic, atraumatic - Eye Eye exam: Present: EOMI Pupils: Present: JUS - ENT ENT exam: Present: normal exam - Neck Neck exam: Present: normal inspection - Respiratory Respiratory exam: Present: clear to auscultation bilaterally. Absent: rales, rhonchi, wheezes - Cardiovascular Cardiovascular exam: Present: regular rate and rhythm - GI/Abdominal GI/Abdominal exam: Present: normal bowel sounds, soft. Absent: mass, tenderness , rebound - Extremities Exam Extremities exam: Absent: calf tenderness, edema - Neurological Exam Neurological exam: Present: alert, oriented X3 - Psychiatric Psychiatric exam: Present: normal affect, normal mood. Absent: agitated, anxious - Skin Skin exam: Present: warm, dry. Absent: erythema Results - Labs CBC & BMP: 12/08/16 04:20 12/08/16 04:20 Lab Results: I have reviewed the past 24 hour labs
[2016-12-08] MEDS: HALOPERIDOL CONCENTRATE 2 MG/ML 15 ML BOTTLE PO SCH ×3 (09:21→21:31)
[2016-12-08] MEDS: MULTIVITAMIN LIQUID (CENTRUM) 60 ML BOTTLE PER TUBE SCH (09:21)
[2016-12-08] MEDS: BACITRACIN OPH OINT 3.5 GM TUBE BOTH EYES SCH ×3 (09:21→21:40)
[2016-12-08] MEDS: PANTOPRAZOLE 40 MG VIAL IV SCH (09:21)
[2016-12-08] MEDS: NYSTATIN 500,000 UNIT/5 ML UDCUP SWISH/SWAL SCH ×4 (09:21→21:40)
--- NOTE | 2016-12-08 11:20 | Pulmonology Progress Note ---
Pulmonary - PN: Subj Interval history: This is a 46-year-old male whom I saw in pulmonary consultation 11/28/2016. Has a long history of respiratory failure for oxygen hypoxemia. He has a nonfunctioning left hemidiaphragm. He was admitted with respiratory failure for oxygen and carbon dioxide and required intubation mechanical ventilation. My impressions were. 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 Patient's on mechanical ventilation. He is on a weaning protocol. On 11/30/2016 he was able to do 4-1/2 hours of CPAP. His chest x-ray shows bilateral infiltrates. Natruretic peptide is increased from 121-213. Electrolytes are normal. Creatinine is 0.90 with the BUN of 32. ABGs on mechanical ventilation FiO2 40% shows a pH of 7.39, PCO2 of 50.0, PO2 of 85.3 and a bicarb of 29.8. This patient will require hypercarbia in order to extubate. He now has a #8 tube. This patient has been started on Diamox 250 mg IV push every 12 hours. Bronchoscopy specimens have no growth. Patient has become afebrile. 12/02/2016. Patient's had a fairly stable night. Today's chest x-ray shows less bilateral pulmonary infiltrates. There is chronic elevation of left hemidiaphragm. No mechanical ventilation and FiO2 40% pH is 7.36, PCO2 is 55.7 , PO2 is 96.2 and bicarb is 28.4. Patient was able to do 8 hours on CPAP on . Sodium is 135. Potassium 5.1. Creatinine is stable at 0.8 with a BUN of 39. Echocardiogram. Ejection fraction 60%. Right ventricular systolic pressure is 47 which should equal pulmonary artery pressure. No significant valvular disease. There is right atrial, right ventricular and left atrial enlargement. 12/03/2016. This patient has advanced to stage V of the weaning protocol. ABGs on mechanical ventilation FiO2 40% shows a pH 7.36, PCO2 55.7, PO2 105, bicarb 28.3. Electrolytes are in the normal range. Creatinine 0.7. BUN is some 33. Patient is getting NG hyperalimentation and get 75 cc of saline per hour. We will check his CBC to make sure the BUN is not related to bleed. Chest x-ray shows some improvement. There is still marked elevation left hemidiaphragm and residual atelectasis above the diaphragm. The right-sided infiltrates are improved but not resolved and is some residual atelectasis at the bases. This patient's cough is ineffective and he has retained secretions. He will be evaluated with fiberoptic bronchoscopy in the morning. 12/08/2016. Patient's chest x-ray is improved significantly. His ABGs are much better. His lab looks good. He is strong and alert today and he is been extubated and so far he is doing well. Follow-up ABGs are pending. Findings have been discussed with the patient's . Nick Hernandez nurse practitioner was present. Physical exam. General. No distress. Can cooperate. Psychiatric. Oriented 3 I think Vital signs. See below Face. Symmetrical. No swelling of the lips or tongue. Neck. No meningismus no masses. Lymphatics. No submandibular cervical supraclavicular or epitrochlear adenopathy. Chest coarse large airway congestion Heart. No definite gallop Abdomen. Scattered bowel sounds Extremities. Mild chronic venous stasis in the lower extremities. Neurologic. Cranial nerves are intact. Patient can move all 4 extremities. It is known that he has a nonfunctioning left hemidiaphragm The remainder of the physical exam is noncontributory. Plan: 11/28/2016 #1: Ventilator weaning protocol #2: Initiate early progressive mobility #3: Patient has a size 7 ET tube. Given the fact that he has had a thoracotomy and chronic CO2 retention, he will be very difficult to wean down with this size tube. We will ask anesthesia to electively change this out to a larger tube. #4: Once anesthesia is able to give us a larger ET tube, we will proceed with fiberoptic bronchoscopy. #5: Daily chest x-ray and ABGs while intubated. #6: Decrease FiO2 to 40% #7: See orders 12/01/2016. 1. See today's note above 2. Continue weaning protocol 3. Chest x-ray has deteriorated, BNP is elevated. Will get echocardiogram. 12/02/2016. 1. See today's note, above 2. Continue protocols. 3. Continue daily chest x-rays ABGs and lab. 4. The patient is making slow steady progress. In order to continue weaning will have to keep a mild elevation of his PCO twos as he is a CO2 retainer 12/03/2016 1. See today's note, above. 2. Fiberoptic bronchoscopy in the morning 3. Stage V weaning protocol 4. Check CBC 5. Continue to follow lab ABGs and chest 12/08/2016. 1. See today's note, above 2. Extubated 12/08/2016. Follow-up ABGs pending #3. Be careful on high FiO2 since this patient's a CO2 retenter Daily chest x-ray and ABGs Exam (Progress Note) - Constitutional Vitals: Period Temp Pulse Resp BP Sys/Pastor Pulse Ox Last 24 Hr 96.9 F-98.7 F 55-102 15-35 113-152/50-94 88-100 Results - Labs CBC & BMP: 12/08/16 04:20 12/08/16 04:20
[2016-12-08 11:34] LABS: ABG Base Excess 0.8 MMOL/L (-2.5-2.5); ABG HCO3 25.1 MMOL/L (20-26); ABG PCO2 58.5 MM HG (35-48); ABG PH 7.303 (7.35-7.45); ABG TCO2 25.1 MMOL/L (23-27)
[2016-12-08 14:15] LABS: ABG Base Excess 1.3 MMOL/L (-2.5-2.5); ABG HCO3 29.8 MMOL/L (20-26); ABG Oxygen Saturation 97.4 % (95-100); ABG PCO2 63.5 MM HG (35-48); ABG PH 7.289 (7.35-7.45); ABG PO2 102.6 MM HG (80-95); ABG TCO2 31.7 MMOL/L (23-27); Allen Test Positive
[2016-12-09 00:12] LABS: ABG Base Excess 3.2 MMOL/L (-2.5-2.5); ABG HCO3 30.2 MMOL/L (20-26); ABG Oxygen Saturation 95.5 % (95-100); ABG PCO2 55.6 MM HG (35-48); ABG PH 7.353 (7.35-7.45); ABG PO2 74.8 MM HG (80-95); ABG TCO2 31.9 MMOL/L (23-27); Allen Test Positive; Pt O2 Delivery Device BIPAP
[2016-12-09] MEDS: ALBUTEROL/IPRATROPIUM 3 ML NEB RESP TX SCH ×4 (00:39→19:45)
[2016-12-09] MEDS: cefTRIAXone 1,000 MG in SODIUM CHLORIDE 0.9% 100 ML IV SCH (02:26)
[2016-12-09 05:21] LABS: ABG Base Excess 2.9 MMOL/L (-2.5-2.5); ABG HCO3 26.7 MMOL/L (20-26); ABG Oxygen Saturation 85.6 % (95-100); ABG PCO2 58.2 MM HG (35-48); ABG PH 7.331 (7.35-7.45); ABG PO2 53.6 MM HG (80-95); ABG TCO2 26.8 MMOL/L (23-27); Allen Test Positive; Pt O2 Delivery Device BIPAP
[2016-12-09 05:44] LABS: Calcium 8.8 MG/DL (8.5-10.1); Magnesium 2.2 MG/DL (1.8-2.4); Osmolality,Calculated 279.5 MOS/KG (273-304); Potassium 4.4 MMOL/L (3.5-5.1)
--- NOTE | 2016-12-09 08:35 | XRay Report ---
XR chest 1V portable Indication: Ventilator Comparison: Chest x-ray dated December 08, 2016 Technique: Single frontal view of the chest. Findings: Continued cardiomegaly. Continued bilateral pulmonary interstitial prominence as well as elevation of the left hemidiaphragm with left basilar atelectasis/consolidation and small left pleural fluid. Visualized osseous and surrounding soft tissue structures appear grossly unchanged. IMPRESSION: No significant interval change. PROCEDURE INTERPRETED AT [facility] DEPARTMENT OF RADIOLOGY Final Report Signed by: Dr Clark Posada
[2016-12-09] MEDS: BACITRACIN OPH OINT 3.5 GM TUBE BOTH EYES SCH ×3 (09:30→23:47)
[2016-12-09] MEDS: HALOPERIDOL CONCENTRATE 2 MG/ML 15 ML BOTTLE PO SCH (09:30)
[2016-12-09] MEDS: NYSTATIN 500,000 UNIT/5 ML UDCUP SWISH/SWAL SCH ×4 (09:30→22:08)
[2016-12-09] MEDS: MULTIVITAMIN LIQUID (CENTRUM) 60 ML BOTTLE PER TUBE SCH (09:30)
[2016-12-09] MEDS: PANTOPRAZOLE 40 MG VIAL IV SCH (09:30)
[2016-12-09] MEDS: methylPREDNISolone SOD SUC 40 MG/1 ML VIAL IV SCH ×2 (09:35→22:07)
--- NOTE | 2016-12-09 12:14 | Hospitalist Progress Note ---
Assessment and Plan (1) Morbid obesity Status: Chronic Current Visit: No (2) Acute on chronic respiratory failure with hypoxemia Status: Acute Assessment and plan: Has history of ORIANA as well as left diaphragm paralysis Extubated yesterday Pulmonary managing Current Visit: Yes (3) Left diaphragm paralysis Status: Chronic Assessment and plan: Secondary to malignant teratoma removal from mediastinum in 1983 Current Visit: Yes Hospitalist: Subjective Interval history: No acute events overnight. Patient was extubated yesterday. He is doing better today, seen sitting on the side of the bed. He is without complaints. He should be able to transfer to the floor today. Exam - Constitutional Vitals: Period Temp Pulse Resp BP Sys/Pastor Pulse Ox Last 24 Hr 97.0 F-98.8 F 69-97 13-36 89-142/55-83 86-100 General appearance: over weight - Head Head exam: Present: normocephalic, atraumatic - Eye Eye exam: Present: EOMI Pupils: Present: JUS - ENT ENT exam: Present: normal exam - Neck Neck exam: Present: normal inspection - Respiratory Respiratory exam: Present: clear to auscultation bilaterally - Cardiovascular Cardiovascular exam: Present: regular rate and rhythm - GI/Abdominal GI/Abdominal exam: Present: normal bowel sounds, mass, soft. Absent: tenderness , rebound - Extremities Exam Extremities exam: Present: normal inspection - Back Exam Back exam: Present: normal inspection - Neurological Exam Neurological exam: Present: alert, oriented X3 - Psychiatric Psychiatric exam: Present: normal affect, normal mood - Skin Skin exam: Present: warm, intact Results - Labs CBC & BMP: 12/08/16 04:20 12/09/16 04:00
[2016-12-09] MEDS: ENOXAPARIN 40 MG/0.4 ML SYRINGE SUBCUT SCH (12:50)
--- NOTE | 2016-12-09 12:54 | Pulmonology Progress Note ---
Pulmonary - PN: Subj Interval history: This is a 46-year-old male whom I saw in pulmonary consultation 11/28/2016. Has a long history of respiratory failure for oxygen hypoxemia. He has a nonfunctioning left hemidiaphragm. He was admitted with respiratory failure for oxygen and carbon dioxide and required intubation mechanical ventilation. My impressions were. 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 Patient's on mechanical ventilation. He is on a weaning protocol. On 11/30/2016 he was able to do 4-1/2 hours of CPAP. His chest x-ray shows bilateral infiltrates. Natruretic peptide is increased from 121-213. Electrolytes are normal. Creatinine is 0.90 with the BUN of 32. ABGs on mechanical ventilation FiO2 40% shows a pH of 7.39, PCO2 of 50.0, PO2 of 85.3 and a bicarb of 29.8. This patient will require hypercarbia in order to extubate. He now has a #8 tube. This patient has been started on Diamox 250 mg IV push every 12 hours. Bronchoscopy specimens have no growth. Patient has become afebrile. 12/02/2016. Patient's had a fairly stable night. Today's chest x-ray shows less bilateral pulmonary infiltrates. There is chronic elevation of left hemidiaphragm. No mechanical ventilation and FiO2 40% pH is 7.36, PCO2 is 55.7 , PO2 is 96.2 and bicarb is 28.4. Patient was able to do 8 hours on CPAP on . Sodium is 135. Potassium 5.1. Creatinine is stable at 0.8 with a BUN of 39. Echocardiogram. Ejection fraction 60%. Right ventricular systolic pressure is 47 which should equal pulmonary artery pressure. No significant valvular disease. There is right atrial, right ventricular and left atrial enlargement. 12/03/2016. This patient has advanced to stage V of the weaning protocol. ABGs on mechanical ventilation FiO2 40% shows a pH 7.36, PCO2 55.7, PO2 105, bicarb 28.3. Electrolytes are in the normal range. Creatinine 0.7. BUN is some 33. Patient is getting NG hyperalimentation and get 75 cc of saline per hour. We will check his CBC to make sure the BUN is not related to bleed. Chest x-ray shows some improvement. There is still marked elevation left hemidiaphragm and residual atelectasis above the diaphragm. The right-sided infiltrates are improved but not resolved and is some residual atelectasis at the bases. This patient's cough is ineffective and he has retained secretions. He will be evaluated with fiberoptic bronchoscopy in the morning. 12/08/2016. Patient's chest x-ray is improved significantly. His ABGs are much better. His lab looks good. He is strong and alert today and he is been extubated and so far he is doing well. Follow-up ABGs are pending. Findings have been discussed with the patient's . Nick Hernandez nurse practitioner was present. 12/09/2016. The patient was extubated on 12/08/2016. He has done very well. His chest x-ray looks great. He has chronic elevation of left hemidiaphragm. Infiltrates have cleared. ABGs on FiO2 28% show a pH 7.353, PCO2 55.6, PO2 74.8 and a bicarb of 30.2. This patient is a CO2 retainer and we cannot use high oxygen concentrations. Electrolytes are normal. Creatinine is 0.60 with a BUN of 19. This patient is stable enough to move to pulmonary floor. Physical exam. General. No distress. Can cooperate. Psychiatric. Oriented 3 Vital signs. See below Face. Symmetrical. No swelling of the lips or tongue. Neck. No meningismus no masses. Lymphatics. No submandibular cervical supraclavicular or epitrochlear adenopathy. Chest. Breath sounds are clear. There is slight coarseness of large airways. Expiration slightly prolonged. Heart. No definite gallop Abdomen. Scattered bowel sounds Extremities. Mild chronic venous stasis in the lower extremities. Neurologic. Cranial nerves are intact. Patient can move all 4 extremities. It is known that he has a nonfunctioning left hemidiaphragm The remainder of the physical exam is noncontributory. Plan: 11/28/2016 #1: Ventilator weaning protocol #2: Initiate early progressive mobility #3: Patient has a size 7 ET tube. Given the fact that he has had a thoracotomy and chronic CO2 retention, he will be very difficult to wean down with this size tube. We will ask anesthesia to electively change this out to a larger tube. #4: Once anesthesia is able to give us a larger ET tube, we will proceed with fiberoptic bronchoscopy. #5: Daily chest x-ray and ABGs while intubated. #6: Decrease FiO2 to 40% #7: See orders 12/01/2016. 1. See today's note above 2. Continue weaning protocol 3. Chest x-ray has deteriorated, BNP is elevated. Will get echocardiogram. 12/02/2016. 1. See today's note, above 2. Continue protocols. 3. Continue daily chest x-rays ABGs and lab. 4. The patient is making slow steady progress. In order to continue weaning will have to keep a mild elevation of his PCO twos as he is a CO2 retainer 12/03/2016 1. See today's note, above. 2. Fiberoptic bronchoscopy in the morning 3. Stage V weaning protocol 4. Check CBC 5. Continue to follow lab ABGs and chest 12/08/2016. 1. See today's note, above 2. Extubated 12/08/2016. Follow-up ABGs pending #3. Be careful on high FiO2 since this patient's a CO2 retenter #4 daily chest x-ray and ABGs 12/09/2016. 1. See today's note, above. 2. Moved to floor. 3. This patient is a CO2 retainer. Do not use high FiO2's. 28% is exactly right for him Exam (Progress Note) - Constitutional Vitals: Period Temp Pulse Resp BP Sys/Pastor Pulse Ox Last 24 Hr 97.0 F-98.8 F 69-97 13-36 89-142/55-83 86-100 Results - Labs CBC & BMP: 12/08/16 04:20 12/09/16 04:00
[2016-12-10] MEDS: cefTRIAXone 1,000 MG in SODIUM CHLORIDE 0.9% 100 ML IV SCH (02:11)
[2016-12-10 04:01] LABS: Allen Test Positive
[2016-12-10 04:02] LABS: ABG Base Excess 1.4 MMOL/L (-2.5-2.5); ABG HCO3 25.6 MMOL/L (20-26); ABG Oxygen Saturation 96.2 % (95-100); ABG PCO2 55.8 MM HG (35-48); ABG PH 7.325 (7.35-7.45); ABG PO2 88.9 MM HG (80-95); ABG TCO2 25.1 MMOL/L (23-27)
[2016-12-10] MEDS: ALBUTEROL/IPRATROPIUM 3 ML NEB RESP TX SCH ×4 (06:55→19:58)
[2016-12-10 07:23] LABS: Basophils % 0.3 % (0.0-0.8); Calcium 9.3 MG/DL (8.5-10.1); Eosinophils % 0.3 % (0.00-10.9); Hematocrit 50.7 VOL% (42.0-52.0); Immature Granulocytes % 0.2 %; Immature Granulocytes Absolute 0.02 #; Lymphocytes # 1.9 10*3/uL (1.4-4.0); Lymphocytes % 20.6 % (21.2-54.2); Magnesium 2.2 MG/DL (1.8-2.4); Mean Corpuscular HGB Conc 30.6 GM/DL (32-36); Mean Corpuscular Hemoglobin 27 PG (27-34); Mean Corpuscular Volume 89.1 FL (87-102); Mean Platelet Volume 10.9 FL (9.6-12.0); Monocytes # 0.5 10*3/uL (0.11-0.8); Monocytes % 5.3 % (1.7-12.7); Neutrophils # 6.7 10*3/uL (1.4-7.4); Neutrophils % 73.3 % (38.7-73.9); Osmolality,Calculated 277.7 MOS/KG (273-304); Platelet Count 165 T/CUMM (130-400); Potassium 4.3 MMOL/L (3.5-5.1); Red Blood Count 5.69 MC/CUMM (3.8-5.5); White Blood Count 9.1 T/CUMM (4-12)
[2016-12-10 07:28] LABS: Hemoglobin 15.5 GM/DL (14.0-18.0)
[2016-12-10] MEDS: MULTIVITAMIN LIQUID (CENTRUM) 60 ML BOTTLE PER TUBE SCH (08:33)
[2016-12-10] MEDS: NYSTATIN 500,000 UNIT/5 ML UDCUP SWISH/SWAL SCH ×4 (08:34→20:36)
[2016-12-10] MEDS: methylPREDNISolone SOD SUC 40 MG/1 ML VIAL IV SCH ×2 (08:34→20:35)
[2016-12-10] MEDS: BACITRACIN OPH OINT 3.5 GM TUBE BOTH EYES SCH ×3 (08:34→20:40)
[2016-12-10] MEDS: ENOXAPARIN 40 MG/0.4 ML SYRINGE SUBCUT SCH (08:34)
[2016-12-10] MEDS: PANTOPRAZOLE 40 MG TABLET PO SCH (08:34)
--- NOTE | 2016-12-10 09:30 | XRay Report ---
Portable chest Date: 12/10/2016 Clinical history: Shortness of breath Comparison: 12/09/2016 Technique: Portable AP sitting chest Findings: Stable cardiomegaly with prominent pulmonary vasculature. Prior left thoracotomy with persistent prominent relative elevation of the left hemidiaphragm. Persistent diffuse parenchymal findings with stable mediastinum and osseous structures. Impression: Stable cardiomegaly with findings felt consistent with residual at least mild CHF. Prior left thoracotomy with prominent relative elevation of the left hemidiaphragm with adjacent atelectasis. PROCEDURE INTERPRETED AT [facility] DEPARTMENT OF RADIOLOGY Final Report Signed by: Dr. Charmaine Mancia
--- NOTE | 2016-12-10 12:05 | Pulmonology Progress Note ---
Pulmonary - PN: Subj Interval history: Nick Hernandez, [facility] acting as scribe for Dr. Ryan Camilo This is a 46-year-old male who we saw in pulmonary consultation 11/28/2016. Has a long history of respiratory failure for oxygen hypoxemia. He has a nonfunctioning left hemidiaphragm. He was admitted with respiratory failure for oxygen and carbon dioxide and required intubation mechanical ventilation. 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 Patient's on mechanical ventilation. He is on a weaning protocol. On 11/30/2016 he was able to do 4-1/2 hours of CPAP. His chest x-ray shows bilateral infiltrates. Natruretic peptide is increased from 121-213. Electrolytes are normal. Creatinine is 0.90 with the BUN of 32. ABGs on mechanical ventilation FiO2 40% shows a pH of 7.39, PCO2 of 50.0, PO2 of 85.3 and a bicarb of 29.8. This patient will require hypercarbia in order to extubate. He now has a #8 tube. This patient has been started on Diamox 250 mg IV push every 12 hours. Bronchoscopy specimens have no growth. Patient has become afebrile. 12/02/2016. Patient's had a fairly stable night. Today's chest x-ray shows less bilateral pulmonary infiltrates. There is chronic elevation of left hemidiaphragm. No mechanical ventilation and FiO2 40% pH is 7.36, PCO2 is 55.7 , PO2 is 96.2 and bicarb is 28.4. Patient was able to do 8 hours on CPAP on . Sodium is 135. Potassium 5.1. Creatinine is stable at 0.8 with a BUN of 39. Echocardiogram. Ejection fraction 60%. Right ventricular systolic pressure is 47 which should equal pulmonary artery pressure. No significant valvular disease. There is right atrial, right ventricular and left atrial enlargement. 12/03/2016. This patient has advanced to stage V of the weaning protocol. ABGs on mechanical ventilation FiO2 40% shows a pH 7.36, PCO2 55.7, PO2 105, bicarb 28.3. Electrolytes are in the normal range. Creatinine 0.7. BUN is some 33. Patient is getting NG hyperalimentation and get 75 cc of saline per hour. We will check his CBC to make sure the BUN is not related to bleed. Chest x-ray shows some improvement. There is still marked elevation left hemidiaphragm and residual atelectasis above the diaphragm. The right-sided infiltrates are improved but not resolved and is some residual atelectasis at the bases. This patient's cough is ineffective and he has retained secretions. He will be evaluated with fiberoptic bronchoscopy in the morning. 12/04/2016. Patient underwent fiberoptic bronchoscopy this morning. This showed retained secretions, ineffective cough, pneumonia, and bilateral atelectasis. Please see the bronchoscopy report for more information. Previous bronchoscopy lavage Gram stain showed gram-positive cocci, but culture grew no organisms. There is been no reported AFB or fungus. The patient's ABGs this morning on mechanical ventilation and an FiO2 of 40% showed a pH of 7.389, PCO2 54.5, PO2 118.9, bicarb 32.2, and oxygen saturation 98.6%. We have asked the patient be placed on a T-tube trial today. Will obtain ABGs approximately 1 hour later. We have asked that these results be called to us. Medications have been reviewed. We made no changes today. Labs been reviewed. White count is 6800 with 83.1% segs; H&H 14.1/47.3; platelet count 122,000; INR 1.1; creatinine 0.70, BUN 28, electrolytes are normal; hemoglobin A1c 6.8% 12/05/2016. The patient was seen today along with his nurse. We will start the patient on T-tube yesterday, however, he did not do as well as we had expected. His PCO2 elevated to 77.2. He is on Diamox and we will continue this. We will continue T-tube trials 1 hour 3 times daily and advance as tolerated. Presently he is on stage V of the weaning protocol. Yesterday we performed fiberoptic bronchoscopy. Gram stain only showed few gram-positive cocci. Culture grew no organisms. He will continue to have daily chest x-rays and ABGs while on the ventilator. He is also on the physical therapy protocol. Medications have been reviewed. We made no changes today. Labs been reviewed. White count is 6483.9% segs; H&H 13.9/45.7; platelet count 125,000; creatinine 0.70, BUN 28, electrolytes were normal ABGs this morning on mechanical ventilation with an FiO2 40% showed pH of 7.376 , PCO2 54.0, PO2 95.6, bicarb 30.9, oxygen saturation 97.7% 12/08/2016. Patient's chest x-ray is improved significantly. His ABGs are much better. His lab looks good. He is strong and alert today and he is been extubated and so far he is doing well. Follow-up ABGs are pending. Findings have been discussed with the patient's . Nick Hernandez nurse practitioner was present. 12/09/2016. The patient was extubated on 12/08/2016. He has done very well. His chest x-ray looks great. He has chronic elevation of left hemidiaphragm. Infiltrates have cleared. ABGs on FiO2 28% show a pH 7.353, PCO2 55.6, PO2 74.8 and a bicarb of 30.2. This patient is a CO2 retainer and we cannot use high oxygen concentrations. Electrolytes are normal. Creatinine is 0.60 with a BUN of 19. This patient is stable enough to move to pulmonary floor. 12/10/2016. The patient was seen today along with his . He is now been moved to the medical floor. Again, we must keep this patient's FiO2 28% or less. We cannot peter his oxygen sats. This was discussed with patient and his this morning to their understanding. Today, we have changed his IV Diamox to oral at the same dose. Previous echocardiogram showed an ejection fraction of 60% with a pulmonary artery pressure 47 and mild mitral regurgitation. The pulmonary hypertension could have been secondary to his acute illness, so we are going to ask for a repeat echocardiogram today. This patient has known obstructive sleep apnea and obesity hypoventilation syndrome. Per his admission note, the patient's CPAP machine had been malfunctioning. Consult Dr. Alcantar for reevaluation of the sleep disorders. It is certainly possible that he could require re-titration. We will also obtain a TSH and free T4 for completeness. Medications have been reviewed. We made no changes today other than to change the Diamox to an oral form. Labs been reviewed. White count is 9100 with a normal differential; H&H 15.5/ 50.7; platelet count 165,000; creatinine 0.70, BUN 20, electrolytes are normal ABGs this morning on an FiO2 of 28% show pH is 7.325, PCO2 55.8, PO2 88.9, bicarb 25.6, and oxygen saturation 96.2% Exam (Progress Note) - Constitutional Vitals: Period Temp Pulse Resp BP Sys/Pastor Pulse Ox Last 24 Hr 96.6 F-98.0 F 72-94 16-33 97-132/57-77 90-99 Exam: Chest with mild coarse large airway congestion Heart with no definite gallop Abdomen is obese but nontender and with scattered bowel sounds Lower extremities with mild chronic venous stasis Psychiatric awake and oriented 3 Neurologic long-term motor function is intact Plan: Repeat echocardiogram. Change IV Diamox to p.o. Consult Dr. Alcantar as above. Repeat echocardiogram. Continue physical therapy efforts. See orders. Results - Labs CBC & BMP: 12/10/16 06:33 12/10/16 06:33 Specialty Discharge - Follow Up or Referrals
--- NOTE | 2016-12-10 12:11 | Hospitalist Progress Note ---
Assessment and Plan (1) Acute respiratory failure with hypercapnia Status: Acute Assessment and plan: Now resolved. I am not sure what caused him to have acute respiratory failure except he that he is noncompliant with the CPAP machine at home he did mention than that his machine is not working properly and it was replaced while he was here and will be using when he goes home. He has a history of CO2 retention and and need to avoid high oxygen concentration. Current Visit: No (2) Obesity hypoventilation syndrome Status: Chronic Assessment and plan: We will need BiPAP at the time of sleep Current Visit: No (3) Left diaphragm paralysis Status: Chronic Assessment and plan: Patient is status post teratoma resection in the mediastinum and has left the from paralysis since then Current Visit: Yes Hospitalist: Subjective Interval history: Mr. Baldwin is a 46-year-old male with history of chronic respiratory failure morbid obesity obesity hypoventilation syndrome and lung cancer. He had surgery for lung cancer in 1983 and be followed by Dr. Covarrubias. Patient was admitted on 11/28/2016 as a transfer from [facility] with respiratory failure and intubation. He had abdominal pain prior to the event and was told to have a large gallbladder. He went home and was found to have funny breathing and evaluation at the [facility] noted to have hypoxia and hyper Anemia he was intubated and transferred here that he was in the ICU and extubated on 12/08/2016. During the ICU stay he had echocardiogram which revealed Ejection fraction 60%. Right ventricular systolic pressure is 47 which should equal pulmonary artery pressure. No significant valvular disease. There is right atrial, right ventricular and left atrial enlargement. On admission he also had ultrasound of the gallbladder and reported gallbladder wall thickening otherwise no evidence of a gallstone. He had been afebrile without any abdominal pain. He has not any distress now followed by pulmonary patient is awake alert and ambulatory Exam - Constitutional Vitals: Period Temp Pulse Resp BP Sys/Pastor Pulse Ox Last 24 Hr 96.6 F-98.0 F 72-94 16-33 97-132/57-77 90-99 General appearance: no acute distress - Respiratory Respiratory exam: Present: clear to auscultation bilaterally. Absent: rales, rhonchi - Cardiovascular Cardiovascular exam: Present: regular rate and rhythm. Absent: tachycardia - GI/Abdominal GI/Abdominal exam: Present: normal bowel sounds, soft. Absent: distended, tenderness - Extremities Exam Extremities exam: Present: other (Sacral decubitus ulcer noted). Absent: edema - Neurological Exam Neurological exam: Present: alert - Skin Skin exam: Present: normal color General appearance: no acute distress, morbidly obese - Respiratory Respiratory exam: Present: clear to auscultation bilaterally. Absent: rales, rhonchi - GI/Abdominal GI/Abdominal exam: Present: normal bowel sounds, soft. Absent: tenderness - Extremities Exam Extremities exam: Present: edema (Mild edema) - Neurological Exam Neurological exam: Present: alert, oriented X3 Results - Labs CBC & BMP: 12/10/16 06:33 12/10/16 06:33 Lab Results: I have reviewed the past 24 hour labs Specialty Discharge - Follow Up or Referrals
--- NOTE | 2016-12-10 17:47 | ECHO Report ---
Huey Baldwin Exam Date: 12/10/2016 10:35 Referring Physician: Technologist: Rachael Reddy Age: 46 Ht (in): 69 Wt (lb): 343 Gender: M Exam Location: [facility] Echo Indications: echo done 12/01/2016, re-eval. PHT BP: 124 / 59 HR: 72 Rhythm: Sinus Technical Quality: Very technically difficult study IMPRESSIONS Very technically difficult study. Left ventricular ejection fraction is estimated at 55-60 %. Mild left atrial enlargement. Mild tricuspid valve regurgitation. Tricuspid regurgitation velocities suggest a PAP of 45-50mmHg. MEASUREMENTS (Male / Female) Normal Values 2D ECHO LV Diastolic Diameter PLAX 4.2 cm 4.2 - 5.9 / 3.9 - 5.3 cm LV Systolic Diameter PLAX 2.8 cm LV Fractional Shortening PLAX 34.6 % IVS Diastolic Thickness 1.0 cm 0.6 - 1.0 / 0.6 - 0.9 cm LVPW Diastolic Thickness 1.1 cm 0.6 - 1.0 / 0.6 - 0.9 cm Aortic Root Diameter 2.7 cm LA Systolic Diameter LX 3.1 cm 3.0 - 4.0 / 2.7 - 3.8 cm DOPPLER TR Peak Velocity 339.0 cm/s TR Peak Gradient 46.0 mmHg FINDINGS Left Ventricle Normal left ventricular cavity size. Mild concentric left ventricular hypertrophy.left ventricular ejection fraction is estimated at 55-60 %. Right Ventricle Grossly normal right ventricular size. Right Atrium Poorly visualized. Left Atrium Mild left atrial enlargement. Mitral Valve Morphologically normal mitral valve. Aortic Valve The aortic valve is trileaflet and has normal motion. Tricuspid Valve Morphologically normal tricuspid valve. Mild tricuspid valve regurgitation. Tricuspid regurgitation velocities suggest a PAP of 45- 50mmHg. Pulmonic Valve Morphologically normal pulmonic valve. Pericardium No pericardial effusion. Aorta Normal size aortic root and proximal ascending aorta. Surjit Hsu (Electronically Signed) Final Date: 10 December 2016 17:45
[2016-12-10] MEDS: acetaZOLAMIDE 250 MG TABLET PO SCH (20:36)
[2016-12-11] MEDS: ALBUTEROL/IPRATROPIUM 3 ML NEB RESP TX SCH ×4 (00:10→21:01)
[2016-12-11 07:00] LABS: Free T4 (Free Thyroxine) 1.14 NG/DL (0.76-1.46); Thyroid Stimulating Hormone 1.01 uIU/ml (0.358-3.74)
[2016-12-11] MEDS: ENOXAPARIN 40 MG/0.4 ML SYRINGE SUBCUT SCH (08:18)
[2016-12-11] MEDS: MULTIVITAMIN LIQUID (CENTRUM) 60 ML BOTTLE PER TUBE SCH (08:19)
[2016-12-11] MEDS: NYSTATIN 500,000 UNIT/5 ML UDCUP SWISH/SWAL SCH ×4 (08:19→21:16)
[2016-12-11] MEDS: acetaZOLAMIDE 250 MG TABLET PO SCH ×2 (08:20→21:17)
[2016-12-11] MEDS: BACITRACIN OPH OINT 3.5 GM TUBE BOTH EYES SCH ×3 (08:20→21:21)
[2016-12-11] MEDS: PANTOPRAZOLE 40 MG TABLET PO SCH (08:20)
[2016-12-11] MEDS: methylPREDNISolone SOD SUC 40 MG/1 ML VIAL IV SCH ×2 (08:39→21:17)
[2016-12-11] MEDS: cefTRIAXone 1,000 MG in SODIUM CHLORIDE 0.9% 100 ML IV SCH (08:46)
--- NOTE | 2016-12-11 10:01 | Hospitalist Progress Note ---
Assessment and Plan (1) Acute respiratory failure with hypercapnia Status: Acute Assessment and plan: Has resolved now patient is tolerating room air. He is instructed to use CPAP at bedtime even he is taking a nap during the day. He should avoid high O2 concentration. Pulmonary following and appreciate recommendation. He did have echocardiogram yesterday and noted his ejection fraction is unchanged to 55-60% and the PA pressure 45-50 mmHg. He is stable and will wait for pulmonary to see and guide us for any further recommendation. Noted Dr. Alcantar has been consulted for reevaluation of the sleep disorder to see the titration is needed Current Visit: No (2) Obesity hypoventilation syndrome Status: Chronic Assessment and plan: Awaiting Dr. Alcantar to evaluate to see if titration is needed for the CPAP machine Current Visit: No (3) Left diaphragm paralysis Status: Chronic Assessment and plan: Patient is status post teratoma resection in the mediastinum and has left the from paralysis since then Current Visit: Yes Hospitalist: Subjective Interval history: Patient remained awake and alert without any distress and he used CPAP last night. He has been afebrile Exam - Constitutional Vitals: Period Temp Pulse Resp BP Sys/Pastor Pulse Ox Last 24 Hr 96.5 F-98.3 F 55-83 18-22 113-177/53-82 90-99 General appearance: no acute distress, morbidly obese - Respiratory Respiratory exam: Present: clear to auscultation bilaterally. Absent: rales, rhonchi - Cardiovascular Cardiovascular exam: Present: regular rate and rhythm. Absent: tachycardia - GI/Abdominal GI/Abdominal exam: Present: normal bowel sounds, soft. Absent: distended, tenderness - Extremities Exam Extremities exam: Present: normal inspection, edema - Neurological Exam Neurological exam: Present: alert, oriented X3 - Psychiatric Psychiatric exam: Present: normal affect, normal mood Results - Labs CBC & BMP: 12/10/16 06:33 12/10/16 06:33 Lab Results: I have reviewed the past 24 hour labs Specialty Discharge - Follow Up or Referrals
[2016-12-11] MEDS: amLODIPine 5 MG TABLET PO SCH (12:01)
--- NOTE | 2016-12-11 12:19 | Pulmonology Progress Note ---
Pulmonary - PN: Subj Interval history: Nick Hernandez, [facility] acting as scribe for Dr. Ryan Camilo This is a 46-year-old male who we saw in pulmonary consultation 11/28/2016. Has a long history of respiratory failure for oxygen hypoxemia. He has a nonfunctioning left hemidiaphragm. He was admitted with respiratory failure for oxygen and carbon dioxide and required intubation mechanical ventilation. 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 Patient's on mechanical ventilation. He is on a weaning protocol. On 11/30/2016 he was able to do 4-1/2 hours of CPAP. His chest x-ray shows bilateral infiltrates. Natruretic peptide is increased from 121-213. Electrolytes are normal. Creatinine is 0.90 with the BUN of 32. ABGs on mechanical ventilation FiO2 40% shows a pH of 7.39, PCO2 of 50.0, PO2 of 85.3 and a bicarb of 29.8. This patient will require hypercarbia in order to extubate. He now has a #8 tube. This patient has been started on Diamox 250 mg IV push every 12 hours. Bronchoscopy specimens have no growth. Patient has become afebrile. 12/02/2016. Patient's had a fairly stable night. Today's chest x-ray shows less bilateral pulmonary infiltrates. There is chronic elevation of left hemidiaphragm. No mechanical ventilation and FiO2 40% pH is 7.36, PCO2 is 55.7 , PO2 is 96.2 and bicarb is 28.4. Patient was able to do 8 hours on CPAP on . Sodium is 135. Potassium 5.1. Creatinine is stable at 0.8 with a BUN of 39. Echocardiogram. Ejection fraction 60%. Right ventricular systolic pressure is 47 which should equal pulmonary artery pressure. No significant valvular disease. There is right atrial, right ventricular and left atrial enlargement. 12/03/2016. This patient has advanced to stage V of the weaning protocol. ABGs on mechanical ventilation FiO2 40% shows a pH 7.36, PCO2 55.7, PO2 105, bicarb 28.3. Electrolytes are in the normal range. Creatinine 0.7. BUN is some 33. Patient is getting NG hyperalimentation and get 75 cc of saline per hour. We will check his CBC to make sure the BUN is not related to bleed. Chest x-ray shows some improvement. There is still marked elevation left hemidiaphragm and residual atelectasis above the diaphragm. The right-sided infiltrates are improved but not resolved and is some residual atelectasis at the bases. This patient's cough is ineffective and he has retained secretions. He will be evaluated with fiberoptic bronchoscopy in the morning. 12/04/2016. Patient underwent fiberoptic bronchoscopy this morning. This showed retained secretions, ineffective cough, pneumonia, and bilateral atelectasis. Please see the bronchoscopy report for more information. Previous bronchoscopy lavage Gram stain showed gram-positive cocci, but culture grew no organisms. There is been no reported AFB or fungus. The patient's ABGs this morning on mechanical ventilation and an FiO2 of 40% showed a pH of 7.389, PCO2 54.5, PO2 118.9, bicarb 32.2, and oxygen saturation 98.6%. We have asked the patient be placed on a T-tube trial today. Will obtain ABGs approximately 1 hour later. We have asked that these results be called to us. Medications have been reviewed. We made no changes today. Labs been reviewed. White count is 6800 with 83.1% segs; H&H 14.1/47.3; platelet count 122,000; INR 1.1; creatinine 0.70, BUN 28, electrolytes are normal; hemoglobin A1c 6.8% 12/05/2016. The patient was seen today along with his nurse. We will start the patient on T-tube yesterday, however, he did not do as well as we had expected. His PCO2 elevated to 77.2. He is on Diamox and we will continue this. We will continue T-tube trials 1 hour 3 times daily and advance as tolerated. Presently he is on stage V of the weaning protocol. Yesterday we performed fiberoptic bronchoscopy. Gram stain only showed few gram-positive cocci. Culture grew no organisms. He will continue to have daily chest x-rays and ABGs while on the ventilator. He is also on the physical therapy protocol. Medications have been reviewed. We made no changes today. Labs been reviewed. White count is 6483.9% segs; H&H 13.9/45.7; platelet count 125,000; creatinine 0.70, BUN 28, electrolytes were normal ABGs this morning on mechanical ventilation with an FiO2 40% showed pH of 7.376 , PCO2 54.0, PO2 95.6, bicarb 30.9, oxygen saturation 97.7% 12/08/2016. Patient's chest x-ray is improved significantly. His ABGs are much better. His lab looks good. He is strong and alert today and he is been extubated and so far he is doing well. Follow-up ABGs are pending. Findings have been discussed with the patient's . Nick Hernandez nurse practitioner was present. 12/09/2016. The patient was extubated on 12/08/2016. He has done very well. His chest x-ray looks great. He has chronic elevation of left hemidiaphragm. Infiltrates have cleared. ABGs on FiO2 28% show a pH 7.353, PCO2 55.6, PO2 74.8 and a bicarb of 30.2. This patient is a CO2 retainer and we cannot use high oxygen concentrations. Electrolytes are normal. Creatinine is 0.60 with a BUN of 19. This patient is stable enough to move to pulmonary floor. 12/10/2016. The patient was seen today along with his . He is now been moved to the medical floor. Again, we must keep this patient's FiO2 28% or less. We cannot peter his oxygen sats. This was discussed with patient and his this morning to their understanding. Today, we have changed his IV Diamox to oral at the same dose. Previous echocardiogram showed an ejection fraction of 60% with a pulmonary artery pressure 47 and mild mitral regurgitation. The pulmonary hypertension could have been secondary to his acute illness, so we are going to ask for a repeat echocardiogram today. This patient has known obstructive sleep apnea and obesity hypoventilation syndrome. Per his admission note, the patient's CPAP machine had been malfunctioning. Consult Dr. Alcantar for reevaluation of the sleep disorders. It is certainly possible that he could require re-titration. We will also obtain a TSH and free T4 for completeness. Medications have been reviewed. We made no changes today other than to change the Diamox to an oral form. Labs been reviewed. White count is 9100 with a normal differential; H&H 15.5/ 50.7; platelet count 165,000; creatinine 0.70, BUN 20, electrolytes are normal ABGs this morning on an FiO2 of 28% show pH is 7.325, PCO2 55.8, PO2 88.9, bicarb 25.6, and oxygen saturation 96.2% 12/11/2016. The patient was seen today along with his . Repeat echocardiogram done 12/10/[address] Hsu showed an ejection fraction estimated at 55-60%, mild left atrial enlargement, mild tricuspid valve regurgitation, and pulmonary artery pressure 45-50 mmHg. It is noted that this is a very technically difficult study. Nonetheless, this again showed pulmonary hypertension. We discussed this with the patient and his . All things considered, we felt in his best interest to treat the pulmonary hypertension with Norvasc 5 mg daily. The patient is agreeable to this is been started. This will probably require repeat echocardiogram in a few months to follow-up his response to the Norvasc. Mr. Baldwin asked about discharge. From our standpoint this would be fine, but he is awaiting evaluation from Dr. Alcantar. He has known obstructive sleep apnea and obesity hypoventilation syndrome. Per his admission note, his CPAP had been malfunctioning prior to admission and this needs to be addressed and are present in prior to discharge. Medications have been reviewed. Norvasc 5 mg p.o. daily was started today. Labs been reviewed. TSH and free T4 normal at 1.010 and 1.14 respectively. Exam (Progress Note) - Constitutional Vitals: Period Temp Pulse Resp BP Sys/Pastor Pulse Ox Last 24 Hr 96.8 F-98.3 F 55-83 18-22 113-177/53-82 92-99 Exam: Chest is fairly clear Heart with no definite gallop Abdomen is obese but nontender and with scattered bowel sounds Lower extremities with mild chronic venous stasis Psychiatric awake and oriented 3 Neurologic long-term motor function is intact Plan: Continue present treatment. From a pulmonary standpoint, the patient is suitable for discharge when medically stable and agreeable with his attending. Would recommend follow-up evaluation with Dr. Alcantar. Continue Norvasc 5 mg p.o. daily. See orders. Results - Labs CBC & BMP: 12/10/16 06:33 12/10/16 06:33 Specialty Discharge - Follow Up or Referrals
[2016-12-12] MEDS: ALBUTEROL/IPRATROPIUM 3 ML NEB RESP TX SCH ×2 (00:15→07:40)
[2016-12-12 06:28] LABS: Calcium 9.1 MG/DL (8.5-10.1); Osmolality,Calculated 283.4 MOS/KG (273-304); Potassium 3.8 MMOL/L (3.5-5.1)
[2016-12-12 06:47] LABS: Basophils % 0.3 % (0.0-0.8); Eosinophils % 0.3 % (0.00-10.9); Immature Granulocytes % 0.3 %; Immature Granulocytes Absolute 0.02 #; Lymphocytes # 1.5 10*3/uL (1.4-4.0); Lymphocytes % 19.8 % (21.2-54.2); Mean Corpuscular HGB Conc 30.4 GM/DL (32-36); Mean Corpuscular Hemoglobin 27 PG (27-34); Mean Corpuscular Volume 89.7 FL (87-102); Mean Platelet Volume 11.2 FL (9.6-12.0); Monocytes # 0.4 10*3/uL (0.11-0.8); Monocytes % 5.4 % (1.7-12.7); Neutrophils # 5.6 10*3/uL (1.4-7.4); Neutrophils % 73.9 % (38.7-73.9); Platelet Count 148 T/CUMM (130-400); Red Blood Count 5.46 MC/CUMM (3.8-5.5); Red Cell Distribution Width 15.9 % (9.3-17.3); White Blood Count 7.6 T/CUMM (4-12)
[2016-12-12 07:01] LABS: Hemoglobin 14.9 GM/DL (14.0-18.0)
[2016-12-12] MEDS: acetaZOLAMIDE 250 MG TABLET PO SCH (09:44)
[2016-12-12] MEDS: BACITRACIN OPH OINT 3.5 GM TUBE BOTH EYES SCH (09:44)
[2016-12-12] MEDS: amLODIPine 5 MG TABLET PO SCH (09:44)
[2016-12-12] MEDS: ENOXAPARIN 40 MG/0.4 ML SYRINGE SUBCUT SCH (09:44)
[2016-12-12] MEDS: cefTRIAXone 1,000 MG in SODIUM CHLORIDE 0.9% 100 ML IV SCH (09:45)
[2016-12-12] MEDS: MULTIVITAMIN LIQUID (CENTRUM) 60 ML BOTTLE PER TUBE SCH (09:45)
[2016-12-12] MEDS: PANTOPRAZOLE 40 MG TABLET PO SCH (09:45)
[2016-12-12] MEDS: NYSTATIN 500,000 UNIT/5 ML UDCUP SWISH/SWAL SCH (09:45)
[2016-12-12] MEDS: methylPREDNISolone SOD SUC 40 MG/1 ML VIAL IV SCH (09:46)
[2016-12-12 12:00] VITALS: BP 135/74
--- NOTE | 2016-12-12 12:18 | Discharge Summary ---
<Nicolasa Schuster - Last Filed: 12/12/16 11:58> Hospital Course - Hospital Course Hospital Course: Mr. Baldwin is a 46-year-old male with past medical history of chronic respiratory failure with hypercapnia, morbid obesity, obstructive sleep apnea, and history of lung cancer that was admitted on 11/28 for evaluation of respiratory failure. The patient was initially complaining of abdominal pain he presented to the [facility] for evaluation. He was told that he had an enlarged gallbladder and that he needs to follow-up with the [facility]. Patient returned home in the a.m. when he called his complains of difficulty breathing. They alerted the EMS and was taken to for treatment. The facility he was noted to have an O2 saturation of 60% and a CO2 of 195; the patient was intubated and transferred to our facility for higher level of care. The patient has had a lengthy hospital stay totally 12 days. Patient was also followed by Pulmonary during his stay and has followed. Pt. underwent a therapeutic fiberoptic bronch on . Cultures were collected. Specialty Discharge - Follow Up or Referrals Discharge Plan - Discharge Data Disposition: Disch To Home/Self Care - Discharge Medications New amLODIPine [Norvasc] 5 mg PO DAILY #30 tablet Continue Albuterol Inhaler [Proventil Inhaler] 2 puff INH Q4H PRN #1 inhaler PRN Reason: Shortness Of Breath/Wheezing Albuterol/Ipratropium Neb [Duoneb] 3 ml RESP TX TID #90 nebulization solution Methyl Salicylate/Menth/Camph [Bengay Ultra Strength Cream] 1 applic TRANSDERM DIRECTED Discontinued Ciprofloxacin HCl [Ciprofloxacin Tab] 1 tablet PO BID metroNIDAZOLE TAB [Flagyl Cap/Tab] 1 tablet PO BID - Follow Up or Referral - Forms/Instructions Instructions: Sleep Apnea Syndrome (GEN), Chronic Obstructive Pulmonary Disease (GEN) Exam - Constitutional Vitals: Period Temp Pulse Resp BP Sys/Pastor Pulse Ox Last 24 Hr 96.5 F-97.7 F 69-83 18-20 103-135/52-78 87-100 Discharge Results Procedures and tests throughout hospitalization: Pending Orders 11/28/16 15:30 AFB Culture/Smears Stat 11/28/16 16:31 Fungal Culture w/ Prep Stat 12/04/16 AFB Culture/Smears Stat Fungal Culture w/ Prep Stat Labs on day of discharge: Labs from last 24 hours 12/12/16 12/12/16 12/11/16 04:38 04:38 20:38 WBC 7.6 RBC 5.46 Hgb 14.9 Hct 49.0 MCV 89.7 MCH 27 MCHC 30.4 L RDW 15.9 Plt Count 148 MPV 11.2 Neut % (Auto) 73.9 Lymph % (Auto) 19.8 L Linn % (Auto) 5.4 Eos % (Auto) 0.3 Baso % (Auto) 0.3 Neut # (Auto) 5.6 Lymph # (Auto) 1.5 Linn # (Auto) 0.4 Eos # (Auto) 0.0 Baso # (Auto) 0.0 Immature Gran % 0.3 Nucleated RBC % 0.0 Immature Gran # 0.02 Nucleated RBCs # 0.00 Immature Plt Fraction 0.0 Sodium 140 Potassium 3.8 Chloride 102 Carbon Dioxide 31 Anion Gap 10.8 BUN 21 H Creatinine 0.80 GFR Calculation 155 BUN/Creatinine Ratio 26.00 H Glucose 140 H POC Glucose 89 Calculated Osmolality 283.4 Calcium 9.1 Preliminary micro results at discharge 12/04/16 Unknown Mycobacterial Culture - Preliminary Bronchial John Lavage No AFB isolated at 1 week 11/28/16 15:30 Mycobacterial Culture - Preliminary Bronchial John Lavage No AFB isolated at 1 week 11/28/16 16:31 Fungal Culture - Preliminary Bronchial John Lavage July albicans 12/04/16 Unknown Fungal Culture - Preliminary Bronchial John Lavage July albicans DS: Provider Date of admission: 11/28/16 00:58 Primary care physician: Herbert Monk MD Attending physician on admission: Matti Hinton MD Consults: 11/28/16 00:58 Consult to Pulmonary Rehabilitation [CONS] Routine Reason for Pulmonary Rehabilitation: COPD 11/28/16 01:07 Consult to Physician [CONS] Routine Comment: Consulting Provider: Consult to Specialist Group: Pulmonology When should Consulting Provider be notified: In am Person Notified: ANIKET Date Notified: 11/28/16 Time Notified: 09:00 Consult Notification Comment: WILL LET HIM KNOW. 11/28/16 01:10 Consult to Dietitian [CONS] Routine Reason for Dietitian: TF-Initiate/Manage 11/28/16 08:59 Consult to Physician [CONS] Routine Comment: Consulting Provider: 11/28/16 09:49 Consult to Anesthesiology [CONS] Routine Consulting Provider: Reason for Anesthesiology: Other Intubation Consult Comment: LARGER ETT 11/28/16 09:55 Consult to Physician [CONS] Routine Comment: Consulting Provider: Consult to Specialist Group: Anesthesiology When should Consulting Provider be notified: Now Person Notified: AMEYA Date Notified: 11/28/16 Time Notified: 10:55 Consult Notification Comment: WILL LET THEM KNOW 11/30/16 12:21 Consult to Wound Care - [place] [CONS] Routine Reason for Wound Care: Other Consult Comment: NEED BARIATRIC BED. THANKS 12/10/16 07:13 Consult to Occupational Therapy [CONS] Routine Reason for Occupational Therapy: Evaluate and Treat Consult to Physical Therapy [CONS] Routine Reason for Physical Therapy: Evaluate and Treat 12/10/16 10:02 Consult to Physician [CONS] Routine Comment: [facility], hx of CPAP use; needs re-eval Consulting Provider: Olga Lidia Alcantar Person Notified: Sophie Date Notified: 12/10/16 Time Notified: 10:10 12/10/16 11:03 Consult to Physical Therapy [CONS] Routine Reason for Physical Therapy: Evaluate and Treat Weakness Discharging clinician: Nicolasa Schuster NP <Caleb Kay - Last Filed: 12/12/16 12:28> Discharge Plan - Discharge Data Condition at Discharge: Stable Discharge Diet: diabetic diet, heart healthy Activity: resume usual activities as tolerated Hygiene: no restrictions Weight Bearing at Discharge: full weight bearing Driving: no restrictions Contact your physician if you experience:: fever over 101, Shortness of breath, pain uncontrolled by pain medications Exam - Constitutional General appearance: no acute distress, morbidly obese - Head Head exam: Present: normocephalic, atraumatic - Eye Eye exam: Present: EOMI Pupils: Present: JUS - ENT ENT exam: Present: normal exam - Neck Neck exam: Present: normal inspection - Respiratory Respiratory exam: Present: clear to auscultation bilaterally - Cardiovascular Cardiovascular exam: Present: regular rate and rhythm - GI/Abdominal GI/Abdominal exam: Present: normal bowel sounds, soft, other (Large abdomen) - Extremities Exam Extremities exam: Present: normal inspection, full ROM - Neurological Exam Neurological exam: Present: alert, oriented X3, CN II-XII intact - Psychiatric Psychiatric exam: Present: normal affect, normal mood - Skin Skin exam: Present: normal color, warm, dry
--- NOTE | 2016-12-12 12:19 | Pulmonology Progress Note ---
Pulmonary - PN: Subj Interval history: Nick Hernandez, [facility], [place]-, acting as scribe for Dr. Ryan Camilo This is a 46-year-old male who we saw in pulmonary consultation 11/28/2016. Has a long history of respiratory failure for oxygen hypoxemia. He has a nonfunctioning left hemidiaphragm. He was admitted with respiratory failure for oxygen and carbon dioxide and required intubation mechanical ventilation. 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 Patient's on mechanical ventilation. He is on a weaning protocol. On 11/30/2016 he was able to do 4-1/2 hours of CPAP. His chest x-ray shows bilateral infiltrates. Natruretic peptide is increased from 121-213. Electrolytes are normal. Creatinine is 0.90 with the BUN of 32. ABGs on mechanical ventilation FiO2 40% shows a pH of 7.39, PCO2 of 50.0, PO2 of 85.3 and a bicarb of 29.8. This patient will require hypercarbia in order to extubate. He now has a #8 tube. This patient has been started on Diamox 250 mg IV push every 12 hours. Bronchoscopy specimens have no growth. Patient has become afebrile. 12/02/2016. Patient's had a fairly stable night. Today's chest x-ray shows less bilateral pulmonary infiltrates. There is chronic elevation of left hemidiaphragm. No mechanical ventilation and FiO2 40% pH is 7.36, PCO2 is 55.7 , PO2 is 96.2 and bicarb is 28.4. Patient was able to do 8 hours on CPAP on . Sodium is 135. Potassium 5.1. Creatinine is stable at 0.8 with a BUN of 39. Echocardiogram. Ejection fraction 60%. Right ventricular systolic pressure is 47 which should equal pulmonary artery pressure. No significant valvular disease. There is right atrial, right ventricular and left atrial enlargement. 12/03/2016. This patient has advanced to stage V of the weaning protocol. ABGs on mechanical ventilation FiO2 40% shows a pH 7.36, PCO2 55.7, PO2 105, bicarb 28.3. Electrolytes are in the normal range. Creatinine 0.7. BUN is some 33. Patient is getting NG hyperalimentation and get 75 cc of saline per hour. We will check his CBC to make sure the BUN is not related to bleed. Chest x-ray shows some improvement. There is still marked elevation left hemidiaphragm and residual atelectasis above the diaphragm. The right-sided infiltrates are improved but not resolved and is some residual atelectasis at the bases. This patient's cough is ineffective and he has retained secretions. He will be evaluated with fiberoptic bronchoscopy in the morning. 12/04/2016. Patient underwent fiberoptic bronchoscopy this morning. This showed retained secretions, ineffective cough, pneumonia, and bilateral atelectasis. Please see the bronchoscopy report for more information. Previous bronchoscopy lavage Gram stain showed gram-positive cocci, but culture grew no organisms. There is been no reported AFB or fungus. The patient's ABGs this morning on mechanical ventilation and an FiO2 of 40% showed a pH of 7.389, PCO2 54.5, PO2 118.9, bicarb 32.2, and oxygen saturation 98.6%. We have asked the patient be placed on a T-tube trial today. Will obtain ABGs approximately 1 hour later. We have asked that these results be called to us. Medications have been reviewed. We made no changes today. Labs been reviewed. White count is 6800 with 83.1% segs; H&H 14.1/47.3; platelet count 122,000; INR 1.1; creatinine 0.70, BUN 28, electrolytes are normal; hemoglobin A1c 6.8% 12/05/2016. The patient was seen today along with his nurse. We will start the patient on T-tube yesterday, however, he did not do as well as we had expected. His PCO2 elevated to 77.2. He is on Diamox and we will continue this. We will continue T-tube trials 1 hour 3 times daily and advance as tolerated. Presently he is on stage V of the weaning protocol. Yesterday we performed fiberoptic bronchoscopy. Gram stain only showed few gram-positive cocci. Culture grew no organisms. He will continue to have daily chest x-rays and ABGs while on the ventilator. He is also on the physical therapy protocol. Medications have been reviewed. We made no changes today. Labs been reviewed. White count is 6483.9% segs; H&H 13.9/45.7; platelet count 125,000; creatinine 0.70, BUN 28, electrolytes were normal ABGs this morning on mechanical ventilation with an FiO2 40% showed pH of 7.376 , PCO2 54.0, PO2 95.6, bicarb 30.9, oxygen saturation 97.7% 12/08/2016. Patient's chest x-ray is improved significantly. His ABGs are much better. His lab looks good. He is strong and alert today and he is been extubated and so far he is doing well. Follow-up ABGs are pending. Findings have been discussed with the patient's . Nick Hernandez nurse practitioner was present. 12/09/2016. The patient was extubated on 12/08/2016. He has done very well. His chest x-ray looks great. He has chronic elevation of left hemidiaphragm. Infiltrates have cleared. ABGs on FiO2 28% show a pH 7.353, PCO2 55.6, PO2 74.8 and a bicarb of 30.2. This patient is a CO2 retainer and we cannot use high oxygen concentrations. Electrolytes are normal. Creatinine is 0.60 with a BUN of 19. This patient is stable enough to move to pulmonary floor. 12/10/2016. The patient was seen today along with his . He is now been moved to the medical floor. Again, we must keep this patient's FiO2 28% or less. We cannot peter his oxygen sats. This was discussed with patient and his this morning to their understanding. Today, we have changed his IV Diamox to oral at the same dose. Previous echocardiogram showed an ejection fraction of 60% with a pulmonary artery pressure 47 and mild mitral regurgitation. The pulmonary hypertension could have been secondary to his acute illness, so we are going to ask for a repeat echocardiogram today. This patient has known obstructive sleep apnea and obesity hypoventilation syndrome. Per his admission note, the patient's CPAP machine had been malfunctioning. Consult Dr. Alcantar for reevaluation of the sleep disorders. It is certainly possible that he could require re-titration. We will also obtain a TSH and free T4 for completeness. Medications have been reviewed. We made no changes today other than to change the Diamox to an oral form. Labs been reviewed. White count is 9100 with a normal differential; H&H 15.5/ 50.7; platelet count 165,000; creatinine 0.70, BUN 20, electrolytes are normal ABGs this morning on an FiO2 of 28% show pH is 7.325, PCO2 55.8, PO2 88.9, bicarb 25.6, and oxygen saturation 96.2% 12/11/2016. The patient was seen today along with his . Repeat echocardiogram done 12/10/[address] Hsu showed an ejection fraction estimated at 55-60%, mild left atrial enlargement, mild tricuspid valve regurgitation, and pulmonary artery pressure 45-50 mmHg. It is noted that this is a very technically difficult study. Nonetheless, this again showed pulmonary hypertension. We discussed this with the patient and his . All things considered, we felt in his best interest to treat the pulmonary hypertension with Norvasc 5 mg daily. The patient is agreeable to this is been started. This will probably require repeat echocardiogram in a few months to follow-up his response to the Norvasc. Mr. Baldwin asked about discharge. From our standpoint this would be fine, but he is awaiting evaluation from Dr. Alcantar. He has known obstructive sleep apnea and obesity hypoventilation syndrome. Per his admission note, his CPAP had been malfunctioning prior to admission and this needs to be addressed and are present in prior to discharge. Medications have been reviewed. Norvasc 5 mg p.o. daily was started today. Labs been reviewed. TSH and Free T4 normal at 1.010 and 1.14 respectively. 12/12/2016. The patient was seen today along with his . He continues to do well from a pulmonary standpoint since extubation. Yesterday we started him on Norvasc for his pulmonary hypertension and he is tolerating this well. This will need to be continued. As noted above, repeat echocardiogram needs to be done at a later date. It is our understanding that he is going to be discharged home today. He will need to continue his routine follow-up care with Dr. Lee at [facility]. He needs to follow-up with Dr. Alcantar regarding his CPAP. Medications been reviewed. We made no changes today. Labs been reviewed. White count 7600 with a normal differential; H&H 14.9/49.0 ; platelet count 148,000; creatinine 0.80, BUN 21, electrolytes normal Exam (Progress Note) - Constitutional Vitals: Period Temp Pulse Resp BP Sys/Pastor Pulse Ox Last 24 Hr 96.5 F-97.7 F 69-83 18-20 103-135/52-78 87-100 Exam: Chest is fairly clear Heart with no definite gallop Abdomen is obese but nontender and bowel sounds are positive 4 Lower extremities with mild chronic venous stasis Psychiatric awake and oriented 3 Neurologic long-term motor function is intact Plan: Patient stable from a pulmonary standpoint. It is our understanding that he is being discharged home today. We will sign off. Please reconsult as needed. Results - Labs CBC & BMP: 12/12/16 04:38 12/12/16 04:38 Specialty Discharge - Follow Up or Referrals
== END 2016-12-12 13:34 | disposition home or self-care (01) | DRG 166 ==
LOC: N.ED 22:16 → SUATTDRO 11-28 00:56 → N.EDINP 11-28 00:56 → SUATTDRO 11-28 00:58 → N.CC 11-28 01:45 → N.2E 12-09 18:37
PROVIDERS: ADMIT Internal Medicine; ATTEND Internal Medicine Infectious Disease

== ENCOUNTER 2017-07-25 04:50 | Inpatient (IN) ==
[2017-07-25] MEDS ORDERED: ETOMIDATE 20 MG/10 ML VIAL IV ONE ×2 (05:13→05:44)
[2017-07-25] MEDS ORDERED: ROCURONIUM 100 MG/10 ML VIAL IV STA (05:20)
[2017-07-25 05:28] LABS: Basophils % 0.4 % (0.0-0.8); Eosinophils # 0.2 10*3/uL (0.0-0.87); Eosinophils % 2.6 % (0.00-10.9); Immature Granulocytes % 0.6 %; Immature Granulocytes Absolute 0.05 #; Lymphocytes # 1.1 10*3/uL (1.4-4.0); Lymphocytes % 13.8 % (21.2-54.2); Mean Corpuscular HGB Conc 28.7 GM/DL (32-36); Mean Corpuscular Hemoglobin 29 PG (27-34); Mean Corpuscular Volume 101.9 FL (87-102); Mean Platelet Volume 10.6 FL (9.6-12.0); Monocytes # 0.3 10*3/uL (0.11-0.8); Monocytes % 4.2 % (1.7-12.7); NRBC # 0.04 10*3/uL; Neutrophils # 6.1 10*3/uL (1.4-7.4); Neutrophils % 78.4 % (38.7-73.9); Platelet Count 158 T/CUMM (130-400); Red Cell Distribution Width 15.2 % (9.3-17.3); White Blood Count 7.8 T/CUMM (4-12)
[2017-07-25] MEDS ORDERED: VECURONIUM 10 MG VIAL IV ONE (05:44)
[2017-07-25] MEDS ORDERED: ROCURONIUM 100 MG/10 ML VIAL IV ONE (05:44)
[2017-07-25 05:49] LABS: Hemoglobin 15.2 GM/DL (14.0-18.0)
[2017-07-25 05:54] LABS: ABG Base Excess 6.5 MMOL/L (-2.5-2.5); ABG HCO3 30.4 MMOL/L (20-26); ABG PH 7.255 (7.35-7.45); ABG TCO2 33.6 MMOL/L (23-27); Allen Test Positive; Pt O2 Delivery Device Ventilator
[2017-07-25] MEDS ORDERED: PROPOFOL 1,000 MG/100 ML BOTTLE IV ONE (05:55)
[2017-07-25 05:56] LABS: Alanine Aminotransferase 20 U/L (16-61); Albumin 3.6 G/DL (3.4-5.0); Alkaline Phosphatase 121 U/L (45-117); Aspartate Amino Transferase 29 U/L (0-37); Blood Urea Nitrogen 15 MG/DL (7-18); Calcium 8.3 MG/DL (8.5-10.1); Glucose 156 MG/DL (74-106); Osmolality,Calculated 278.7 MOS/KG (273-304); Potassium 4.5 MMOL/L (3.5-5.1); Sodium 138 MMOL/L (136-145); Total Protein 9.2 G/DL (6.4-8.3); Troponin I Only < 0.015 NG/ML (0.00-0.045)
[2017-07-25] MEDS: PROPOFOL 1,000 MG/100 ML BOTTLE IV SCH ×2 (05:58→22:20)
[2017-07-25 06:08] LABS: ABG PCO2 87.3 MM HG (35-48)
[2017-07-25 06:11] LABS: Amorphous Crystals,Urine Occasional /HPF (Few); Apearance,Urine CLEAR (Clear); Bacteria,Urine Occasional /HPF (Few); Bilirubin,Urine Negative (Negative); Blood, Urine Negative (Negative); Glucose,Urine (UA) Negative (Negative); Ketones,Urine Negative (Negative); Mucus,Urine Occasional /LPF (Occasional); Nitrite,Urine Negative (Negative); Protein,Urine 100 MG/DL; RBC,Urine 1 /HPF (0-4); Squamous Epithelial Cell,Urine Occasional /HPF (0-10); Urine Color Amber (Yellow); WBC,Urine 2 /HPF (0-6)
[2017-07-25] MEDS ORDERED: ENOXAPARIN 40 MG/0.4 ML SYRINGE ONE (06:41)
[2017-07-25 07:28] LABS: ABG Base Excess 9.1 MMOL/L (-2.5-2.5); ABG HCO3 32.5 MMOL/L (20-26); ABG Oxygen Saturation 86.2 % (95-100); ABG PH 7.345 (7.35-7.45); ABG PO2 50.6 MM HG (80-95); ABG TCO2 33.4 MMOL/L (23-27)
[2017-07-25 07:31] LABS: ABG PCO2 70.5 MM HG (35-48)
[2017-07-25] MEDS: SODIUM CHLORIDE 0.9% 1,000 ML IV SCH ×3 (07:34→22:20)
[2017-07-25] MEDS ORDERED: AMINOPHYLLINE 250 MG in SODIUM CHLORIDE 0.9% 100 ML IV ONE (09:30)
[2017-07-25] MEDS: PANTOPRAZOLE 40 MG VIAL IV SCH (10:25)
[2017-07-25] MEDS: methylPREDNISolone SOD SUC 125 MG/2 ML VIAL IV SCH ×2 (10:25→17:23)
[2017-07-25] MEDS: LEVOFLOXACIN INJ 500 MG in PREMIX 1 EACH IV SCH (10:25)
[2017-07-25] MEDS: ENOXAPARIN 40 MG/0.4 ML SYRINGE SUBCUT SCH (10:28)
[2017-07-25] MEDS: INSULIN LISPRO 100 UNIT/ML SUBCUT SCH ×2 (12:29→17:20)
[2017-07-25] MEDS: AMINOPHYLLINE 500 MG in SODIUM CHLORIDE 0.9% 480 ML IV SCH (12:40)
[2017-07-26] MEDS: INSULIN LISPRO 100 UNIT/ML SUBCUT SCH ×4 (00:17→17:33)
[2017-07-26] MEDS: methylPREDNISolone SOD SUC 125 MG/2 ML VIAL IV SCH ×3 (00:53→17:37)
[2017-07-26 03:53] LABS: Pt O2 Delivery Device Ventilator
[2017-07-26 03:54] LABS: ABG Base Excess 2.2 MMOL/L (-2.5-2.5); ABG HCO3 26.4 MMOL/L (20-26); ABG Oxygen Saturation 99.7 % (95-100); ABG PCO2 49.2 MM HG (35-48); ABG PH 7.371 (7.35-7.45); ABG TCO2 24.4 MMOL/L (23-27)
[2017-07-26] MEDS: SODIUM CHLORIDE 0.9% 1,000 ML IV SCH ×3 (06:31→22:43)
[2017-07-26 07:03] LABS: Basophils % 0.1 % (0.0-0.8); Hematocrit 49.4 VOL% (42.0-52.0); Hemoglobin 15.2 GM/DL (14.0-18.0); Immature Granulocytes % 0.4 %; Immature Granulocytes Absolute 0.03 #; Lymphocytes # 0.8 10*3/uL (1.4-4.0); Lymphocytes % 11.3 % (21.2-54.2); Mean Corpuscular HGB Conc 30.8 GM/DL (32-36); Mean Corpuscular Hemoglobin 30 PG (27-34); Mean Corpuscular Volume 96.1 FL (87-102); Mean Platelet Volume 10.5 FL (9.6-12.0); Monocytes # 0.3 10*3/uL (0.11-0.8); Monocytes % 4.6 % (1.7-12.7); Neutrophils % 83.6 % (38.7-73.9); Platelet Count 153 T/CUMM (130-400); Red Blood Count 5.14 MC/CUMM (3.8-5.5); Red Cell Distribution Width 14.4 % (9.3-17.3); White Blood Count 7.2 T/CUMM (4-12)
[2017-07-26 07:22] LABS: Calcium 8.6 MG/DL (8.5-10.1); Osmolality,Calculated 280.5 MOS/KG (273-304); Potassium 4.7 MMOL/L (3.5-5.1)
[2017-07-26] MEDS: ENOXAPARIN 40 MG/0.4 ML SYRINGE SUBCUT SCH (08:14)
[2017-07-26] MEDS: PANTOPRAZOLE 40 MG VIAL IV SCH (08:15)
[2017-07-26] MEDS: LEVOFLOXACIN INJ 500 MG in PREMIX 1 EACH IV SCH (08:30)
[2017-07-26] MEDS: AMINOPHYLLINE 500 MG in SODIUM CHLORIDE 0.9% 480 ML IV SCH (16:17)
[2017-07-26] MEDS: PROPOFOL 1,000 MG/100 ML BOTTLE IV SCH (16:18)
[2017-07-26] MEDS: VANCOMYCIN INJ 2,500 MG in SODIUM CHLORIDE 0.9% 500 ML IV SCH (16:21)
[2017-07-27] MEDS: INSULIN LISPRO 100 UNIT/ML SUBCUT SCH ×4 (00:05→18:17)
[2017-07-27] MEDS: methylPREDNISolone SOD SUC 125 MG/2 ML VIAL IV SCH ×3 (01:33→18:04)
[2017-07-27] MEDS: PROPOFOL 1,000 MG/100 ML BOTTLE IV SCH ×3 (03:33→20:58)
[2017-07-27] MEDS: VANCOMYCIN INJ 2,500 MG in SODIUM CHLORIDE 0.9% 500 ML IV SCH ×2 (03:34→16:03)
[2017-07-27 04:22] LABS: ABG Base Excess -1.1 MMOL/L (-2.5-2.5); ABG HCO3 23.5 MMOL/L (20-26); ABG Oxygen Saturation 99.5 % (95-100); ABG PCO2 49.4 MM HG (35-48); ABG PH 7.325 (7.35-7.45); ABG TCO2 22.1 MMOL/L (23-27); Allen Test Positive; Pt O2 Delivery Device Ventilator
[2017-07-27 04:54] LABS: Calcium 8.2 MG/DL (8.5-10.1); Osmolality,Calculated 277.7 MOS/KG (273-304); Potassium 4.9 MMOL/L (3.5-5.1)
[2017-07-27 05:28] LABS: Hematocrit 50.3 VOL% (42.0-52.0); Immature Granulocytes % 0.4 %; Immature Granulocytes Absolute 0.03 #; Lymphocytes # 0.7 10*3/uL (1.4-4.0); Lymphocytes % 10.1 % (21.2-54.2); Mean Corpuscular Hemoglobin 29 PG (27-34); Mean Corpuscular Volume 97.9 FL (87-102); Mean Platelet Volume 10.5 FL (9.6-12.0); Monocytes # 0.2 10*3/uL (0.11-0.8); Monocytes % 3.2 % (1.7-12.7); Neutrophils # 6.1 10*3/uL (1.4-7.4); Neutrophils % 86.3 % (38.7-73.9); Platelet Count 135 T/CUMM (130-400); Red Blood Count 5.14 MC/CUMM (3.8-5.5); Red Cell Distribution Width 14.4 % (9.3-17.3); White Blood Count 7.1 T/CUMM (4-12)
[2017-07-27 05:29] LABS: Hemoglobin 15.1 GM/DL (14.0-18.0)
[2017-07-27] MEDS: SODIUM CHLORIDE 0.9% 1,000 ML IV SCH ×2 (06:43→18:46)
[2017-07-27] MEDS: ENOXAPARIN 40 MG/0.4 ML SYRINGE SUBCUT SCH (09:17)
[2017-07-27] MEDS: PANTOPRAZOLE 40 MG VIAL IV SCH (09:26)
[2017-07-27] MEDS: LEVOFLOXACIN INJ 500 MG in PREMIX 1 EACH IV SCH (09:28)
[2017-07-27] MEDS: MUPIROCIN 2% OINT 22 GM TUBE TOP SCH ×2 (09:51→21:20)
[2017-07-27] MEDS: AMINOPHYLLINE 500 MG in SODIUM CHLORIDE 0.9% 480 ML IV SCH (21:15)
[2017-07-28] MEDS: INSULIN LISPRO 100 UNIT/ML SUBCUT SCH ×4 (00:17→20:12)
[2017-07-28] MEDS: methylPREDNISolone SOD SUC 125 MG/2 ML VIAL IV SCH ×3 (01:47→16:37)
[2017-07-28] MEDS: VANCOMYCIN INJ 2,500 MG in SODIUM CHLORIDE 0.9% 500 ML IV SCH ×3 (03:35→21:55)
[2017-07-28 03:46] LABS: ABG Base Excess -1.2 MMOL/L (-2.5-2.5); ABG HCO3 23.4 MMOL/L (20-26); ABG Oxygen Saturation 99.6 % (95-100); ABG PCO2 51.1 MM HG (35-48); ABG PH 7.313 (7.35-7.45); ABG TCO2 22.4 MMOL/L (23-27); Allen Test Positive; Pt O2 Delivery Device Ventilator
[2017-07-28 05:44] LABS: Osmolality,Calculated 280.5 MOS/KG (273-304); Potassium 4.4 MMOL/L (3.5-5.1)
[2017-07-28] MEDS: PROPOFOL 1,000 MG/100 ML BOTTLE IV SCH ×2 (05:47→16:54)
[2017-07-28 05:54] LABS: Basophils % 0.2 % (0.0-0.8); Hematocrit 44.6 VOL% (42.0-52.0); Hemoglobin 14.1 GM/DL (14.0-18.0); Immature Granulocytes % 0.4 %; Immature Granulocytes Absolute 0.02 #; Lymphocytes # 0.6 10*3/uL (1.4-4.0); Lymphocytes % 11.7 % (21.2-54.2); Mean Corpuscular HGB Conc 31.6 GM/DL (32-36); Mean Corpuscular Hemoglobin 30 PG (27-34); Mean Corpuscular Volume 95.7 FL (87-102); Mean Platelet Volume 10.9 FL (9.6-12.0); Monocytes # 0.3 10*3/uL (0.11-0.8); Monocytes % 5.4 % (1.7-12.7); Neutrophils # 4.3 10*3/uL (1.4-7.4); Neutrophils % 82.3 % (38.7-73.9); Platelet Count 128 T/CUMM (130-400); Red Blood Count 4.66 MC/CUMM (3.8-5.5); Red Cell Distribution Width 14.5 % (9.3-17.3); White Blood Count 5.2 T/CUMM (4-12)
[2017-07-28 06:24] LABS: Prealbumin 28.2 MG/DL (20-40)
[2017-07-28] MEDS: SODIUM CHLORIDE 0.9% 1,000 ML IV SCH (08:36)
[2017-07-28] MEDS: PANTOPRAZOLE 40 MG VIAL IV SCH (09:44)
[2017-07-28] MEDS: MUPIROCIN 2% OINT 22 GM TUBE TOP SCH ×2 (09:44→21:55)
[2017-07-28] MEDS: ENOXAPARIN 40 MG/0.4 ML SYRINGE SUBCUT SCH (09:50)
[2017-07-28] MEDS: LEVOFLOXACIN INJ 500 MG in PREMIX 1 EACH IV SCH (09:54)
[2017-07-28] MEDS: AMINOPHYLLINE 500 MG in SODIUM CHLORIDE 0.9% 480 ML IV SCH (22:38)
[2017-07-29] MEDS: INSULIN LISPRO 100 UNIT/ML SUBCUT SCH ×3 (00:28→13:49)
[2017-07-29] MEDS: methylPREDNISolone SOD SUC 125 MG/2 ML VIAL IV SCH ×2 (01:12→08:30)
[2017-07-29] MEDS: PROPOFOL 1,000 MG/100 ML BOTTLE IV SCH ×2 (01:59→09:43)
[2017-07-29 03:24] LABS: ABG Base Excess 2.6 MMOL/L (-2.5-2.5); ABG HCO3 26.8 MMOL/L (20-26); ABG Oxygen Saturation 99.1 % (95-100); ABG PCO2 48.2 MM HG (35-48); ABG PH 7.383 (7.35-7.45); ABG TCO2 24.4 MMOL/L (23-27); Allen Test Positive; Pt O2 Delivery Device Ventilator
[2017-07-29 05:24] LABS: Calcium 8.2 MG/DL (8.5-10.1); Potassium 4.5 MMOL/L (3.5-5.1)
[2017-07-29 05:41] LABS: Hematocrit 48.5 VOL% (42.0-52.0); Immature Granulocytes % 0.7 %; Immature Granulocytes Absolute 0.06 #; Lymphocytes # 0.8 10*3/uL (1.4-4.0); Lymphocytes % 9.1 % (21.2-54.2); Mean Corpuscular HGB Conc 30.5 GM/DL (32-36); Mean Corpuscular Hemoglobin 30 PG (27-34); Mean Corpuscular Volume 96.8 FL (87-102); Mean Platelet Volume 11.3 FL (9.6-12.0); Monocytes # 0.7 10*3/uL (0.11-0.8); Monocytes % 8.4 % (1.7-12.7); Neutrophils # 6.8 10*3/uL (1.4-7.4); Neutrophils % 81.8 % (38.7-73.9); Platelet Count 120 T/CUMM (130-400); Red Blood Count 5.01 MC/CUMM (3.8-5.5); Red Cell Distribution Width 14.4 % (9.3-17.3); White Blood Count 8.3 T/CUMM (4-12)
[2017-07-29 06:05] LABS: Hemoglobin 14.8 GM/DL (14.0-18.0)
[2017-07-29] MEDS: ENOXAPARIN 40 MG/0.4 ML SYRINGE SUBCUT SCH (08:17)
[2017-07-29] MEDS: PANTOPRAZOLE 40 MG VIAL IV SCH (08:17)
[2017-07-29] MEDS: MUPIROCIN 2% OINT 22 GM TUBE TOP SCH (08:21)
[2017-07-29] MEDS: LEVOFLOXACIN INJ 500 MG in PREMIX 1 EACH IV SCH (08:31)
[2017-07-29] MEDS: VANCOMYCIN INJ 2,500 MG in SODIUM CHLORIDE 0.9% 500 ML IV SCH (14:59)
[2017-07-29 18:08] VITALS: BP 111/52
== END 2017-07-29 17:48 | DRG 167 ==
LOC: N.ED 04:50 → SUATTDRO 06:13 → N.EDINP 06:13 → N.CC 07:30
PROVIDERS: ADMIT Internal Medicine; ATTEND Family Medicine

== ENCOUNTER 2018-08-29 02:28 | Inpatient (IN) ==
[2018-08-29] MEDS ORDERED: MAGNESIUM SULF RIDER 100 ML IV ONE (04:22)
[2018-08-29] MEDS ORDERED: POTASSIUM CHLORIDE RIDER 100 ML IV ONE ×4 (04:23→04:25)
[2018-08-29] MEDS ORDERED: MAGNESIUM SULF RIDER 4 GM in PREMIX 1 EACH IV PRN (04:59)
[2018-08-29] MEDS ORDERED: MAGNESIUM SULF RIDER 2 GM in PREMIX 1 EACH IV PRN (04:59)
[2018-08-29] MEDS ORDERED: SODIUM CHLORIDE 0.9% 1,000 ML IV ONE (05:01)
[2018-08-29] MEDS: POTASSIUM CHLORIDE RIDER 10 MEQ in PREMIX 1 EACH IV PRN ×3 (05:07→07:28)
[2018-08-29] MEDS ORDERED: MAGNESIUM SULF RIDER 1 GM in PREMIX 1 EACH IV ONE (05:08)
[2018-08-29 05:18] LABS: Basophils # 0.1 10*3/uL (0.0-0.2); Basophils % 0.7 % (0.0-0.8); Eosinophils % 0.3 % (0.00-10.9); Hematocrit 56.4 VOL% (42.0-52.0); Immature Granulocytes % 1.2 %; Immature Granulocytes Absolute 0.08 #; Lymphocytes # 1.5 10*3/uL (1.4-4.0); Lymphocytes % 22.4 % (21.2-54.2); Mean Corpuscular HGB Conc 29.4 GM/DL (32-36); Mean Corpuscular Volume 97.7 FL (87-102); Mean Platelet Volume 10.4 FL (9.6-12.0); Monocytes % 13.1 % (1.7-12.7); NRBC # 0.14 10*3/uL; Neutrophils % 62.3 % (38.7-73.9); Platelet Count 170 T/CUMM (130-400); Red Blood Count 5.77 MC/CUMM (3.8-5.5); Red Cell Distribution Width 14.6 % (9.3-17.3); White Blood Count 6.7 T/CUMM (4-12)
[2018-08-29 05:19] LABS: Calcium 8.7 MG/DL (8.5-10.1); Osmolality,Calculated 266.7 MOS/KG (273-304)
[2018-08-29 05:21] LABS: Allen Test Positive; Pt O2 Delivery Device Venturi Mask
[2018-08-29 05:22] LABS: ABG Base Excess 10.3 MMOL/L (-2.5-2.5); ABG HCO3 33.4 MMOL/L (20-26); ABG Oxygen Saturation 76.4 % (95-100); ABG PH 7.277 (7.35-7.45); ABG PO2 45.3 MM HG (80-95); ABG TCO2 37.5 MMOL/L (23-27)
[2018-08-29] MEDS ORDERED: ETOMIDATE 20 MG/10 ML VIAL IV ONE ×2 (05:30→05:34)
[2018-08-29] MEDS ORDERED: SUCCINYLCHOLINE 200 MG/10 ML VIAL ONE (05:31)
[2018-08-29] MEDS ORDERED: SUCCINYLCHOLINE 200 MG/10 ML VIAL IV ONE (05:35)
[2018-08-29 05:36] LABS: Hemoglobin 16.6 GM/DL (14.0-18.0)
[2018-08-29] MEDS ORDERED: PROPOFOL 1,000 MG/100 ML BOTTLE IV ONE (05:37)
[2018-08-29] MEDS ORDERED: PROPOFOL 200 MG/20 ML VIAL IV ONE (05:42)
[2018-08-29] MEDS: PROPOFOL 1,000 MG/100 ML BOTTLE IV SCH ×3 (05:42→20:00)
[2018-08-29 06:00] LABS: Platelet Estimate Decreased; Polychromasia Few
[2018-08-29] MEDS ORDERED: MIDAZOLAM 100 MG in SODIUM CHLORIDE 0.9% 80 ML IV PRN (06:08)
[2018-08-29] MEDS ORDERED: SODIUM BICARBONATE 50 MEQ/50 ML VIAL IV ONE ×2 (06:12→06:24)
[2018-08-29] MEDS ORDERED: ONDANSETRON 4 MG/2 ML VIAL IV PRN (06:19)
[2018-08-29] MEDS ORDERED: NICOTINE 21 MG/24 HR PATCH TRANSDERM PRN (06:19)
[2018-08-29] MEDS ORDERED: MORPHINE 4 MG/1 ML VIAL IV PRN (06:19)
[2018-08-29] MEDS ORDERED: ALBUTEROL 2.5 MG/3 ML NEB RESP TX PRN (06:19)
[2018-08-29] MEDS ORDERED: methylPREDNISolone SOD SUC 125 MG/2 ML VIAL IV ONE (06:24)
[2018-08-29] MEDS: fentaNYL INJ 1,250 MCG in SODIUM CHLORIDE 0.9% 225 ML IV PRN ×3 (06:41→23:34)
[2018-08-29 07:26] LABS: Risk Ratio 4.67; VLDL CHOLESTEROL 23.2 MG/DL
[2018-08-29] MEDS: PANTOPRAZOLE 40 MG VIAL IV SCH (07:27)
[2018-08-29 07:29] LABS: ABG Base Excess 15.8 MMOL/L (-2.5-2.5); ABG HCO3 40.1 MMOL/L (20-26); ABG PCO2 53.6 MM HG (35-48); ABG PH 7.508 (7.35-7.45); ABG TCO2 35.1 MMOL/L (23-27); Pt O2 Delivery Device Ventilator
[2018-08-29 07:33] LABS: Apearance,Urine CLEAR (Clear); Bacteria,Urine Occasional /HPF (Few); Bilirubin,Urine Negative (Negative); Blood, Urine Small mg/dL (Negative); Glucose,Urine (UA) Negative (Negative); Ketones,Urine Negative (Negative); Mucus,Urine Occasional /LPF (Occasional); Nitrite,Urine Negative (Negative); Protein,Urine 30 MG/DL; RBC,Urine 3 /HPF (0-4); Squamous Epithelial Cell,Urine Occasional /HPF (0-10); Urine Color Straw (Yellow); Urine Specific Gravity 1.005 (1.001-1.035); Urine Urobilinogen < 2.0 EU/DL (0.2-1.0); WBC,Urine <1 /HPF (0-6)
[2018-08-29] MEDS: ALBUTEROL/IPRATROPIUM 3 ML NEB RESP TX SCH ×3 (07:44→19:12)
[2018-08-29 10:14] LABS: Albumin 3.6 G/DL (3.4-5.0); Bilirubin,Total 1.6 MG/DL (0.2-1.0); Calcium 8.3 MG/DL (8.5-10.1); Osmolality,Calculated 273.2 MOS/KG (273-304); Total Protein 9.5 G/DL (6.4-8.3)
[2018-08-29 14:36] LABS: Albumin 3.6 G/DL (3.4-5.0); Bilirubin,Total 1.2 MG/DL (0.2-1.0); Calcium 8.8 MG/DL (8.5-10.1); Osmolality,Calculated 276.2 MOS/KG (273-304); Total Protein 9.3 G/DL (6.4-8.3)
[2018-08-29] MEDS ORDERED: DEXTROSE 50% 25 GM/50 ML VIAL IV PRN (14:43)
[2018-08-29] MEDS ORDERED: GLUCAGON 1 MG VIAL IM PRN (14:43)
[2018-08-29 19:21] LABS: Albumin 3.4 G/DL (3.4-5.0); Bilirubin,Total 1.1 MG/DL (0.2-1.0); Calcium 8.6 MG/DL (8.5-10.1); Osmolality,Calculated 279.1 MOS/KG (273-304)
[2018-08-30] MEDS: ALBUTEROL/IPRATROPIUM 3 ML NEB RESP TX SCH ×4 (00:11→19:50)
[2018-08-30 03:16] LABS: ABG Base Excess 10.4 MMOL/L (-2.5-2.5); ABG HCO3 34.2 MMOL/L (20-26); ABG PCO2 40.9 MM HG (35-48); ABG PH 7.532 (7.35-7.45); ABG TCO2 28.3 MMOL/L (23-27); Allen Test Positive; Pt O2 Delivery Device Ventilator
[2018-08-30] MEDS: PROPOFOL 1,000 MG/100 ML BOTTLE IV SCH ×3 (04:07→14:18)
[2018-08-30 04:59] LABS: Albumin 3.2 G/DL (3.4-5.0); Bilirubin,Total 1.1 MG/DL (0.2-1.0); Calcium 8.8 MG/DL (8.5-10.1); Osmolality,Calculated 278.1 MOS/KG (273-304); Total Protein 8.8 G/DL (6.4-8.3)
[2018-08-30] MEDS: fentaNYL INJ 1,250 MCG in SODIUM CHLORIDE 0.9% 225 ML IV PRN ×2 (06:10→15:47)
[2018-08-30] MEDS: PANTOPRAZOLE 40 MG VIAL IV SCH (06:54)
[2018-08-30 09:46] VITALS: BP 116/69
[2018-08-31] MEDS: fentaNYL INJ 1,250 MCG in SODIUM CHLORIDE 0.9% 225 ML IV PRN ×2 (00:45→09:49)
[2018-08-31] MEDS: ALBUTEROL/IPRATROPIUM 3 ML NEB RESP TX SCH ×4 (01:20→20:08)
[2018-08-31] MEDS: PROPOFOL 1,000 MG/100 ML BOTTLE IV SCH ×3 (01:22→21:28)
[2018-08-31 04:36] LABS: Bilirubin,Total 1.9 MG/DL (0.2-1.0); Calcium 8.6 MG/DL (8.5-10.1); Osmolality,Calculated 278.1 MOS/KG (273-304); Total Protein 8.6 G/DL (6.4-8.3)
[2018-08-31 04:49] LABS: ABG Base Excess 4.8 MMOL/L (-2.5-2.5); ABG HCO3 28.8 MMOL/L (20-26); ABG Oxygen Saturation 99.1 % (95-100); ABG PCO2 43.7 MM HG (35-48); ABG PH 7.441 (7.35-7.45); ABG TCO2 24.8 MMOL/L (23-27); Allen Test Positive; Pt O2 Delivery Device Ventilator
[2018-08-31] MEDS: POTASSIUM CHLORIDE RIDER 10 MEQ in PREMIX 1 EACH IV PRN ×3 (04:55→08:22)
[2018-08-31] MEDS: PANTOPRAZOLE 40 MG VIAL IV SCH (06:00)
[2018-08-31 06:05] LABS: Basophils % 0.2 % (0.0-0.8); Eosinophils # 0.2 10*3/uL (0.0-0.87); Eosinophils % 1.5 % (0.00-10.9); Hematocrit 49.8 VOL% (42.0-52.0); Hemoglobin 15.4 GM/DL (14.0-18.0); Immature Granulocytes % 0.4 %; Immature Granulocytes Absolute 0.04 #; Lymphocytes # 2.4 10*3/uL (1.4-4.0); Lymphocytes % 24.5 % (21.2-54.2); Mean Corpuscular HGB Conc 30.9 GM/DL (32-36); Mean Corpuscular Volume 93.8 FL (87-102); Monocytes % 9.1 % (1.7-12.7); Neutrophils % 64.3 % (38.7-73.9); Platelet Count 149 T/CUMM (130-400); Red Blood Count 5.31 MC/CUMM (3.8-5.5); Red Cell Distribution Width 14.9 % (9.3-17.3); White Blood Count 9.8 T/CUMM (4-12)
[2018-08-31] MEDS: ENOXAPARIN 40 MG/0.4 ML SYRINGE SUBCUT SCH (11:49)
[2018-09-01] MEDS: ALBUTEROL/IPRATROPIUM 3 ML NEB RESP TX SCH ×2 (00:07→07:18)
[2018-09-01] MEDS: fentaNYL INJ 1,250 MCG in SODIUM CHLORIDE 0.9% 225 ML IV PRN (01:31)
[2018-09-01 03:47] LABS: Basophils % 0.2 % (0.0-0.8); Eosinophils # 0.2 10*3/uL (0.0-0.87); Eosinophils % 2.1 % (0.00-10.9); Hematocrit 49.7 VOL% (42.0-52.0); Hemoglobin 14.9 GM/DL (14.0-18.0); Immature Granulocytes % 0.4 %; Immature Granulocytes Absolute 0.04 #; Lymphocytes # 1.9 10*3/uL (1.4-4.0); Lymphocytes % 19.9 % (21.2-54.2); Mean Corpuscular Volume 95.6 FL (87-102); Mean Platelet Volume 10.7 FL (9.6-12.0); Monocytes % 7.2 % (1.7-12.7); Neutrophils % 70.2 % (38.7-73.9); Platelet Count 150 T/CUMM (130-400); Red Cell Distribution Width 14.6 % (9.3-17.3); White Blood Count 9.6 T/CUMM (4-12)
[2018-09-01 04:13] LABS: Albumin 2.9 G/DL (3.4-5.0); Bilirubin,Total 1.4 MG/DL (0.2-1.0); Calcium 8.6 MG/DL (8.5-10.1); Osmolality,Calculated 273.2 MOS/KG (273-304); Total Protein 8.8 G/DL (6.4-8.3)
[2018-09-01 04:35] LABS: Band Neutrophils 3 % (0-10); Eosinophils 3 % (0-10); Lymphocytes 17 % (20-55); Segmented Neutrophils 67 % (50-85); Total Cells Counted 100
[2018-09-01 04:36] LABS: Platelet Estimate Adequate
[2018-09-01 04:48] LABS: ABG Base Excess 1.2 MMOL/L (-2.5-2.5); ABG HCO3 25.5 MMOL/L (20-26); ABG Oxygen Saturation 99.8 % (95-100); ABG PCO2 40.9 MM HG (35-48); ABG TCO2 21.8 MMOL/L (23-27)
[2018-09-01] MEDS: PANTOPRAZOLE 40 MG VIAL IV SCH (06:19)
[2018-09-01] MEDS ORDERED: LEVOTHYROXINE 100 MCG VIAL IV SCH (07:00)
[2018-09-01] MEDS ORDERED: FUROSEMIDE 40 MG/4 ML VIAL IV ONE (07:51)
[2018-09-01] MEDS ORDERED: FLUCONAZOLE INJ 100 MG in IV BAG 1 EACH IV SCH (09:30)
[2018-09-01] MEDS: ENOXAPARIN 40 MG/0.4 ML SYRINGE SUBCUT SCH (11:00)
[2018-09-01] MEDS: PROPOFOL 1,000 MG/100 ML BOTTLE IV SCH ×2 (15:14→15:20)
== END 2018-09-01 15:47 | DRG 208 ==
LOC: N.ICU 02:34 → SUATTDRO 06:19
PROVIDERS: ADMIT Internal Medicine; ATTEND Internal Medicine Geriatric Medicine

== ENCOUNTER 2019-01-15 01:58 | Inpatient (IN) ==
[2019-01-15 02:12] LABS: ABG Base Excess 8.3 MMOL/L (-2.5-2.5); ABG HCO3 32.1 MMOL/L (20-26); ABG Oxygen Saturation 99.5 % (95-100); ABG PH 7.322 (7.35-7.45); ABG TCO2 33.1 MMOL/L (23-27); Allen Test Positive; Pt O2 Delivery Device Ventilator
[2019-01-15 02:16] LABS: ABG PCO2 74.3 MM HG (35-48)
[2019-01-15] MEDS ORDERED: MIDAZOLAM 100 MG in SODIUM CHLORIDE 0.9% 80 ML IV PRN (02:39)
[2019-01-15] MEDS ORDERED: MIDAZOLAM 2 MG/2 ML VIAL IV ONE (02:40)
[2019-01-15] MEDS ORDERED: DEXTROSE 50% 25 GM/50 ML VIAL IV PRN (05:33)
[2019-01-15] MEDS ORDERED: ONDANSETRON 4 MG/2 ML VIAL IV PRN ×2 (05:33)
[2019-01-15] MEDS ORDERED: MORPHINE 4 MG/1 ML VIAL IV PRN (05:33)
[2019-01-15] MEDS ORDERED: ALBUTEROL 2.5 MG/3 ML NEB RESP TX PRN (05:33)
[2019-01-15] MEDS: PANTOPRAZOLE 40 MG VIAL IV SCH (05:49)
[2019-01-15] MEDS: DEXTROSE 5% NACL 0.45% 1,000 ML IV SCH ×2 (05:52→16:01)
[2019-01-15 06:20] LABS: Basophils % 0.4 % (0.0-0.8); Eosinophils # 0.2 10*3/uL (0.0-0.87); Eosinophils % 3.5 % (0.00-10.9); Hematocrit 48.6 VOL% (42.0-52.0); Hemoglobin 14.1 GM/DL (14.0-18.0); Immature Granulocytes % 0.3 %; Immature Granulocytes Absolute 0.02 #; Lymphocytes # 1.7 10*3/uL (1.4-4.0); Mean Corpuscular Volume 97.6 FL (87-102); Mean Platelet Volume 10.4 FL (9.6-12.0); Monocytes % 9.5 % (1.7-12.7); NRBC # 0.06 10*3/uL; Neutrophils % 61.3 % (38.7-73.9); Platelet Count 168 T/CUMM (130-400); Red Blood Count 4.98 MC/CUMM (3.8-5.5); Red Cell Distribution Width 14.1 % (9.3-17.3); White Blood Count 6.9 T/CUMM (4-12)
[2019-01-15 06:28] LABS: ABG Base Excess 11.2 MMOL/L (-2.5-2.5); ABG HCO3 35.1 MMOL/L (20-26); ABG PH 7.458 (7.35-7.45); ABG TCO2 32.1 MMOL/L (23-27); Allen Test Positive; Pt O2 Delivery Device Ventilator
[2019-01-15] MEDS: LEVOTHYROXINE 100 MCG VIAL IV SCH (06:30)
[2019-01-15 06:32] LABS: Hypochromasia 1+; Platelet Estimate Adequate
[2019-01-15 06:50] LABS: Albumin 2.6 G/DL (3.4-5.0); Calcium 8.1 MG/DL (8.5-10.1); Osmolality,Calculated 273.8 MOS/KG (273-304); Thyroid Stimulating Hormone 4.1 uIU/ml (0.358-3.74); Total Protein 7.8 G/DL (6.4-8.3)
[2019-01-15] MEDS: ALBUTEROL/IPRATROPIUM 3 ML NEB RESP TX SCH ×3 (07:53→19:02)
[2019-01-15] MEDS: methylPREDNISolone SOD SUC 125 MG/2 ML VIAL IV SCH ×2 (08:38→20:32)
[2019-01-15] MEDS: ENOXAPARIN 40 MG/0.4 ML SYRINGE SUBCUT SCH (08:38)
[2019-01-15] MEDS ORDERED: DEXMEDETOMIDINE 200 MCG in SODIUM CHLORIDE 0.9% 48 ML IV PRN (09:07)
[2019-01-15] MEDS: PIPERACILLIN/TAZOBACTAM 3,375 MG in SODIUM CHLORIDE 0.9% 100 ML IV SCH ×2 (10:35→17:22)
[2019-01-15] MEDS: AZITHROMYCIN 250 MG TABLET PO SCH (10:36)
[2019-01-15] MEDS: DEXMEDETOMIDINE 400 MCG in SODIUM CHLORIDE 0.9% 96 ML IV PRN (14:23)
[2019-01-16] MEDS: ALBUTEROL/IPRATROPIUM 3 ML NEB RESP TX SCH ×4 (00:29→19:10)
[2019-01-16] MEDS: PIPERACILLIN/TAZOBACTAM 3,375 MG in SODIUM CHLORIDE 0.9% 100 ML IV SCH ×3 (00:35→17:15)
[2019-01-16] MEDS: DEXMEDETOMIDINE 400 MCG in SODIUM CHLORIDE 0.9% 96 ML IV PRN (01:46)
[2019-01-16 03:52] LABS: Allen Test Positive; Pt O2 Delivery Device Ventilator
[2019-01-16 03:53] LABS: ABG Base Excess 7.4 MMOL/L (-2.5-2.5); ABG HCO3 34.5 MMOL/L (20-26); ABG Oxygen Saturation 84.9 % (95-100); ABG PCO2 58.1 MM HG (35-48); ABG PH 7.392 (7.35-7.45); ABG PO2 50.7 MM HG (80-95); ABG TCO2 36.3 MMOL/L (23-27)
[2019-01-16 04:26] LABS: Basophils % 0.2 % (0.0-0.8); Immature Granulocytes % 0.4 %; Immature Granulocytes Absolute 0.02 #; Lymphocytes # 0.6 10*3/uL (1.4-4.0); Lymphocytes % 10.7 % (21.2-54.2); Mean Corpuscular HGB Conc 29.3 GM/DL (32-36); Mean Corpuscular Volume 94.7 FL (87-102); Mean Platelet Volume 10.8 FL (9.6-12.0); Monocytes % 1.8 % (1.7-12.7); Neutrophils % 86.9 % (38.7-73.9); Platelet Count 162 T/CUMM (130-400); Red Blood Count 5.33 MC/CUMM (3.8-5.5); Red Cell Distribution Width 13.6 % (9.3-17.3); White Blood Count 5.6 T/CUMM (4-12)
[2019-01-16 04:50] LABS: Albumin 2.6 G/DL (3.4-5.0); Bilirubin,Total 0.9 MG/DL (0.2-1.0); Calcium 8.3 MG/DL (8.5-10.1); Osmolality,Calculated 282.5 MOS/KG (273-304); Total Protein 8.1 G/DL (6.4-8.3)
[2019-01-16 04:57] LABS: Hemoglobin 14.8 GM/DL (14.0-18.0)
[2019-01-16 05:13] LABS: ABG Base Excess 6.8 MMOL/L (-2.5-2.5); ABG HCO3 32.9 MMOL/L (20-26); ABG Oxygen Saturation 98.6 % (95-100); ABG PH 7.419 (7.35-7.45); ABG PO2 114.1 MM HG (80-95); ABG TCO2 34.5 MMOL/L (23-27); Allen Test Positive; Pt O2 Delivery Device Ventilator
[2019-01-16] MEDS: DEXTROSE 5% NACL 0.45% 1,000 ML IV SCH (05:43)
[2019-01-16] MEDS: PANTOPRAZOLE 40 MG VIAL IV SCH (06:04)
[2019-01-16] MEDS: LEVOTHYROXINE 100 MCG VIAL IV SCH (06:04)
[2019-01-16] MEDS: methylPREDNISolone SOD SUC 125 MG/2 ML VIAL IV SCH ×2 (08:32→20:58)
[2019-01-16] MEDS: AZITHROMYCIN 250 MG TABLET PO SCH (08:32)
[2019-01-16] MEDS: ENOXAPARIN 40 MG/0.4 ML SYRINGE SUBCUT SCH (08:32)
[2019-01-16] MEDS: INSULIN LISPRO 100 UNIT/ML SUBCUT SCH ×2 (12:26→16:03)
[2019-01-16] MEDS: FUROSEMIDE 40 MG/4 ML VIAL IV SCH (17:26)
[2019-01-16] MEDS ORDERED: INSULIN LISPRO 100 UNIT/ML SUBCUT SCH (18:00)
[2019-01-17] MEDS: PIPERACILLIN/TAZOBACTAM 3,375 MG in SODIUM CHLORIDE 0.9% 100 ML IV SCH ×3 (01:18→17:46)
[2019-01-17] MEDS: ALBUTEROL/IPRATROPIUM 3 ML NEB RESP TX SCH ×4 (02:02→19:56)
[2019-01-17 03:07] LABS: Allen Test Positive
[2019-01-17 03:10] LABS: ABG Base Excess 7.5 MMOL/L (-2.5-2.5); ABG Oxygen Saturation 96.9 % (95-100); ABG PCO2 67.6 MM HG (35-48); ABG PH 7.344 (7.35-7.45); ABG TCO2 38.1 MMOL/L (23-27)
[2019-01-17 04:44] LABS: Calcium 8.3 MG/DL (8.5-10.1); Osmolality,Calculated 288.8 MOS/KG (273-304)
[2019-01-17 05:34] LABS: Basophils % 0.1 % (0.0-0.8); Eosinophils % 0.1 % (0.00-10.9); Hematocrit 47.5 VOL% (42.0-52.0); Hemoglobin 13.9 GM/DL (14.0-18.0); Immature Granulocytes % 0.2 %; Immature Granulocytes Absolute 0.02 #; Lymphocytes # 1.4 10*3/uL (1.4-4.0); Lymphocytes % 16.9 % (21.2-54.2); Mean Corpuscular HGB Conc 29.3 GM/DL (32-36); Mean Corpuscular Volume 96.9 FL (87-102); Mean Platelet Volume 11.3 FL (9.6-12.0); Monocytes % 9.7 % (1.7-12.7); Platelet Count 141 T/CUMM (130-400)
[2019-01-17] MEDS: PANTOPRAZOLE 40 MG VIAL IV SCH (07:01)
[2019-01-17] MEDS: LEVOTHYROXINE 100 MCG VIAL IV SCH (07:04)
[2019-01-17] MEDS: FUROSEMIDE 40 MG/4 ML VIAL IV SCH ×2 (08:27→15:47)
[2019-01-17] MEDS: methylPREDNISolone SOD SUC 125 MG/2 ML VIAL IV SCH (08:27)
[2019-01-17] MEDS: AZITHROMYCIN 250 MG TABLET PO SCH (08:28)
[2019-01-17] MEDS: ENOXAPARIN 40 MG/0.4 ML SYRINGE SUBCUT SCH (08:28)
[2019-01-17] MEDS: MONTELUKAST 10 MG TABLET PO SCH (10:41)
[2019-01-17] MEDS: methylPREDNISolone SOD SUC 40 MG/1 ML VIAL IV SCH ×2 (11:04→22:26)
[2019-01-17 11:21] LABS: Free T4 (Free Thyroxine) 1.07 NG/DL (0.76-1.46); Thyroid Stimulating Hormone 3.47 uIU/ml (0.358-3.74)
[2019-01-17] MEDS ORDERED: INFLUENZA VIRUS VACCINE 0.5 ML SYRINGE IM ONE (12:53)
[2019-01-17] MEDS: ALBUTEROL 2 MG TABLET PO SCH ×2 (15:47→20:53)
[2019-01-18] MEDS: ALBUTEROL/IPRATROPIUM 3 ML NEB RESP TX SCH ×4 (00:37→19:15)
[2019-01-18] MEDS: PIPERACILLIN/TAZOBACTAM 3,375 MG in SODIUM CHLORIDE 0.9% 100 ML IV SCH ×3 (01:32→17:29)
[2019-01-18 04:22] LABS: ABG HCO3 29.8 MMOL/L (20-26); ABG Oxygen Saturation 94.4 % (95-100); ABG PH 7.271 (7.35-7.45); ABG TCO2 32.5 MMOL/L (23-27); Allen Test Positive; Pt O2 Delivery Device BIPAP
[2019-01-18 04:24] LABS: ABG PCO2 80.6 MM HG (35-48)
[2019-01-18 05:33] LABS: Calcium 8.5 MG/DL (8.5-10.1); Osmolality,Calculated 284.5 MOS/KG (273-304)
[2019-01-18] MEDS: PANTOPRAZOLE 40 MG VIAL IV SCH (05:45)
[2019-01-18 06:22] LABS: Eosinophils % 0.2 % (0.00-10.9); Hematocrit 48.6 VOL% (42.0-52.0); Immature Granulocytes % 0.3 %; Immature Granulocytes Absolute 0.02 #; Lymphocytes # 0.4 10*3/uL (1.4-4.0); Lymphocytes % 6.3 % (21.2-54.2); Mean Corpuscular HGB Conc 28.8 GM/DL (32-36); Mean Corpuscular Volume 97.8 FL (87-102); Mean Platelet Volume 11.1 FL (9.6-12.0); Monocytes % 3.7 % (1.7-12.7); Neutrophils % 89.5 % (38.7-73.9); Platelet Count 144 T/CUMM (130-400); Red Blood Count 4.97 MC/CUMM (3.8-5.5); Red Cell Distribution Width 14.1 % (9.3-17.3); White Blood Count 6.5 T/CUMM (4-12)
[2019-01-18] MEDS: LEVOTHYROXINE 100 MCG VIAL IV SCH (06:31)
[2019-01-18 06:33] LABS: Hypochromasia 1+; Microcytosis Slight; Platelet Estimate Adequate
[2019-01-18] MEDS: MONTELUKAST 10 MG TABLET PO SCH (08:32)
[2019-01-18] MEDS: ENOXAPARIN 40 MG/0.4 ML SYRINGE SUBCUT SCH (08:32)
[2019-01-18] MEDS: AZITHROMYCIN 250 MG TABLET PO SCH (08:32)
[2019-01-18] MEDS: ALBUTEROL 2 MG TABLET PO SCH ×3 (08:32→21:09)
[2019-01-18] MEDS: FUROSEMIDE 40 MG/4 ML VIAL IV SCH ×2 (08:34→15:36)
[2019-01-18] MEDS ORDERED: predniSONE 20 MG TABLET PO SCH (09:00)
[2019-01-18 10:59] LABS: ABG Base Excess 7.6 MMOL/L (-2.5-2.5); ABG HCO3 30.9 MMOL/L (20-26); ABG Oxygen Saturation 78.3 % (95-100); ABG PCO2 67.3 MM HG (35-48); ABG PH 7.342 (7.35-7.45); ABG PO2 44.5 MM HG (80-95); ABG TCO2 31.8 MMOL/L (23-27); Allen Test Positive; Pt O2 Delivery Device Room Air
[2019-01-19] MEDS: PIPERACILLIN/TAZOBACTAM 3,375 MG in SODIUM CHLORIDE 0.9% 100 ML IV SCH ×2 (01:35→09:54)
[2019-01-19 04:29] LABS: Allen Test Positive; Pt O2 Delivery Device CPAP
[2019-01-19 04:31] LABS: ABG Base Excess 3.8 MMOL/L (-2.5-2.5); ABG HCO3 27.8 MMOL/L (20-26); ABG Oxygen Saturation 96.4 % (95-100); ABG PCO2 68.7 MM HG (35-48); ABG PH 7.294 (7.35-7.45); ABG PO2 91.1 MM HG (80-95)
[2019-01-19] MEDS: PANTOPRAZOLE 40 MG VIAL IV SCH (04:49)
[2019-01-19 05:45] LABS: Osmolality,Calculated 282.4 MOS/KG (273-304)
[2019-01-19 05:53] LABS: Basophils % 0.3 % (0.0-0.8); Eosinophils % 0.3 % (0.00-10.9); Hematocrit 49.2 VOL% (42.0-52.0); Immature Granulocytes % 0.3 %; Immature Granulocytes Absolute 0.02 #; Lymphocytes # 1.9 10*3/uL (1.4-4.0); Lymphocytes % 24.8 % (21.2-54.2); Mean Corpuscular HGB Conc 29.1 GM/DL (32-36); Mean Corpuscular Volume 95.9 FL (87-102); Mean Platelet Volume 10.8 FL (9.6-12.0); Neutrophils % 65.3 % (38.7-73.9); Platelet Count 157 T/CUMM (130-400); Red Blood Count 5.13 MC/CUMM (3.8-5.5); Red Cell Distribution Width 13.9 % (9.3-17.3); White Blood Count 7.7 T/CUMM (4-12)
[2019-01-19 05:55] LABS: Hemoglobin 14.3 GM/DL (14.0-18.0)
[2019-01-19 06:01] LABS: Hypochromasia 1+; Microcytosis Slight; Platelet Estimate Adequate
[2019-01-19] MEDS: ALBUTEROL/IPRATROPIUM 3 ML NEB RESP TX SCH ×3 (07:43→12:02)
[2019-01-19] MEDS ORDERED: predniSONE 20 MG TABLET PO SCH (09:00)
[2019-01-19] MEDS: MONTELUKAST 10 MG TABLET PO SCH (09:44)
[2019-01-19] MEDS: ENOXAPARIN 40 MG/0.4 ML SYRINGE SUBCUT SCH (09:44)
[2019-01-19] MEDS: ALBUTEROL 2 MG TABLET PO SCH ×2 (09:44→16:02)
[2019-01-19 11:53] VITALS: BP 125/56
[2019-01-19] MEDS: FUROSEMIDE 40 MG/4 ML VIAL IV SCH ×2 (11:54→16:03)
== END 2019-01-19 16:01 | disposition home or self-care (01) | DRG 208 ==
LOC: EDUNIT# → EDBD → N.ED 01:58 → N.EDINP 04:54 → SUATTDRO 04:54 → N.ICU 05:03 → N.2E 01-17 16:49
PROVIDERS: ADMIT Internal Medicine; ATTEND Internal Medicine